=== PATIENT | male | born 1945 | race Caucasian/White ===

== ENCOUNTER → 2021-02-03 | Outpatient (CLI) | payer MEDICARE ==
--- NOTE | 2021-02-03 22:20 | CT ---
EXAMINATION TYPE: CT brain wo con DATE OF EXAM: 02/03/2021 HISTORY: memory loss, confusion. CT DLP: 1144.7 mGycm. Automated Exposure Control for Dose Reduction was Utilized. TECHNIQUE: CT scan of the head is performed without contrast. COMPARISON: 04/17/2016 FINDINGS: There is no acute intracranial hemorrhage, midline shift, or mass effect identified. Ventricles and s ulci are prominent concordant with generalized volume loss. There is redemonstrated patchy white george er hypodensities likely sequela of chronic microvascular ischemic change. No extra-axial fluid collec tion. No depressed calvarial fracture. Visualized sinuses and mastoid air cells are clear. IMPRESSION: 1. No acute intracranial hemorrhage, midline shift, or mass effect. 2. Generalized volume loss. Patchy white matter hypodensities likely sequela of chronic microvascular ischemic change.
== END | disposition home or self-care (01) ==
LOC: RADCTMAIN 18:36
PROVIDERS: ATTEND Family Medicine
DX: R41.3 Other amnesia (principal)
CPT/HCPCS: 70450

== ENCOUNTER → 2021-04-18 | Outpatient (CLI) | payer MEDICARE ==
[2021-04-18 14:54] LABS: HCT 46.3 % (39.6-50.0); HGB 14.3 g/dL (13.0-17.0); MCH 29.7 pg (27.0-32.0); MCHC 30.9 g/dL (32.0-37.0); MCV 96.1 fL (80.0-97.0); Mean Platelet Volume 9.5 fL (9.5-12.2); Platelet Count 305 X 10*3/uL (140-440); RBC 4.82 X 10*6/uL (4.40-5.60); RDW 13.3 % (11.5-14.5); WBC 9.02 X 10*3/uL (4.50-10.00)
[2021-04-18 17:55] LABS: African American GFR (CKD) 67.7 (60.0-200.0); Albumin 3.8 g/dL (3.8-4.9); Albumin/Globulin Ratio 1.27 (1.60-3.17); Anion Gap 16.4 mmol/L (10.00-18.00); BUN/Creat Ratio 13.67 Ratio (12.00-20.00); Blood Urea Nitrogen 16.4 mg/dL (9.0-27.0); Carbon Dioxide 24.6 mmol/L (20.0-27.5); Non-African American GFR(CKD) 58.4 (60.0-200.0); Potassium 4.6 mmol/L (3.5-5.5); Total Bilirubin 0.4 mg/dL (0.30-1.20); Total Protein 6.8 g/dL (6.2-8.2)
[2021-04-18 17:56] LABS: % Iron Saturation 21.13 (15.00-50.00); T4, Free (Free Thyroxine) 1.32 ng/dL (0.800-1.800)
== END | disposition home or self-care (01) ==
LOC: LABWHC1 08:13
PROVIDERS: ATTEND Psychiatry & Neurology Pain Medicine
DX: R53.83 Other fatigue (principal)
CPT/HCPCS: 36415; 80053; 82550; 82607; 82728; 83036; 83540; 83550; 84207; 84439; 84443; 84466; 84481; 85027

== ENCOUNTER → 2021-11-24 | Outpatient (CLI) | payer MEDICARE ==
[2021-11-24 15:00] LABS: T4, Free (Free Thyroxine) 1.19 ng/dL (0.800-1.800)
[2021-11-24 15:09] LABS: Thyroid Peroxidase Antibodies <9.0 U/mL (0.0-33.0)
== END | disposition home or self-care (01) ==
LOC: LABWHC1 08:25
PROVIDERS: ATTEND Internal Medicine Endocrinology, Diabetes & Metabolism
DX: E03.8 Other specified hypothyroidism (principal)
CPT/HCPCS: 36415; 84439; 84443; 84480; 86376

== ENCOUNTER → 2022-02-06 | Outpatient (CLI) | payer MEDICARE | END | disposition home or self-care (01) | LOC: LABWHC1 08:41 | PROVIDERS: ATTEND Internal Medicine Endocrinology, Diabetes & Metabolism | DX: E03.8 Other specified hypothyroidism (principal) | CPT/HCPCS: 36415; 84443 ==

== ENCOUNTER 2022-03-16 20:03 | Inpatient (IN) | payer MEDICARE ==
[2022-03-16 20:08] LABS: Glucose,Whole Blood 244 mg/dL (70-110)
[2022-03-16] MEDS ORDERED: SODIUM CHLORIDE 0.9% 500 ML 500 ML IV STA (20:19)
[2022-03-16 20:30] LABS: Basophils # (A) 0.1 k/uL (0-0.2); Basophils % (A) 1 %; Eosinophils # (A) 0.1 k/uL (0-0.7); Eosinophils % (A) 2 %; HCT 41.2 % (39.0-53.0); HGB 13.6 gm/dL (13.0-17.5); Lymphocytes # (A) 0.3 k/uL (1.0-4.8); Lymphocytes % (A) 4 %; MCH 29.4 pg (25.0-35.0); MCV 89.1 fL (80.0-100.0); Mean Platelet Volume 7.4; Monocytes # (A) 0.4 k/uL (0-1.0); Monocytes % (A) 5 %; Neutrophils # (A) 7.1 k/uL (1.3-7.7); Neutrophils % (A) 88 %; Platelet Count 236 k/uL (150-450); RBC 4.62 m/uL (4.30-5.90); RDW 13.5 % (11.5-15.5); WBC 8.1 k/uL (3.8-10.6)
[2022-03-16 20:48] LABS: Partial Thromboplastin Time 24.3 sec (22.0-30.0); Prothrombin Time 10.4 sec (9.0-12.0)
[2022-03-16 20:58] LABS: Albumin 3.2 g/dL (3.5-5.0); Calcium 7.6 mg/dL (8.4-10.2); Magnesium 1.7 mg/dL (1.6-2.3); Potassium 3.2 mmol/L (3.5-5.1); Total Bilirubin 0.6 mg/dL (0.2-1.3); Total Protein 5.9 g/dL (6.3-8.2)
[2022-03-16] MEDS: SODIUM CHLORIDE 0.9% 1,000 ML IV SCH (22:04)
--- NOTE | 2022-03-16 22:05 | ED ---
General Adult HPI - General Chief complaint: Fall Stated complaint: Weakness, fall Time Seen by Provider: 03/16/22 20:13 Source: patient, family, EMS, RN notes reviewed, old records reviewed Mode of arrival: EMS Limitations: altered mental status - History of Present Illness Initial comments: 76-year-old male presenting for evaluation of generalized weakness, difficulty ambulating. Patient has had 3 episodes today where he was unable to stand and had minor falls. No injury reported. No head trauma. The patient has no complaints. No abdominal pain he has had some nausea and vomiting. No chest pain. No focal numbness or weakness. History of dementia. History is obtainable from the patient and the patient's . - Related Data Home Medications Medication Instructions Recorded Confirmed Clopidogrel [Plavix] 75 mg PO DAILY 04/17/16 03/16/22 Ezetimibe/Simvastatin [Vytorin 1 tab PO HS 04/17/16 03/16/22 10-40 mg Tablet] Isosorbide Mononitrate ER [Imdur] 30 mg PO DAILY 04/17/16 03/16/22 Metoprolol Tartrate [Lopressor] 25 mg PO DAILY 04/17/16 03/16/22 Quinapril HCl [Accupril] 5 mg PO DAILY 04/17/16 03/16/22 Sertraline [Zoloft] 50 mg PO DAILY 04/17/16 03/16/22 Levothyroxine Sodium [Synthroid] 25 mcg PO DAILY 03/16/22 03/16/22 Memantine [Namenda] 5 mg PO BID 03/16/22 03/16/22 Allergies Allergy/AdvReac Type Severity Reaction Status Date / Time Penicillins AdvReac Nausea & Verified 03/16/22 21:46 Vomiting Review of Systems ROS Statement: Those systems with pertinent positive or pertinent negative responses have been documented in the HPI. ROS Other: All systems not noted in ROS Statement are negative. Past Medical History Past Medical History: Coronary Artery Disease (CAD), Hyperlipidemia, Myocardial Infarction ([place]) History of Any Multi-Drug Resistant Organisms: None Reported Past Surgical History: Heart Catheterization With Stent Past Psychological History: No Psychological Hx Reported Smoking Status: Never smoker Past Alcohol Use History: None Reported Past Drug Use History: None Reported General Exam Limitations: altered mental status General appearance: alert, in no apparent distress Head exam: Present: atraumatic, normocephalic Eye exam: Present: normal appearance, PERRL ENT exam: Present: mucous membranes dry Neck exam: Present: normal inspection. Absent: tenderness, meningismus Respiratory exam: Present: normal lung sounds bilaterally. Absent: respiratory distress, wheezes Cardiovascular Exam: Present: regular rate, normal rhythm GI/Abdominal exam: Present: soft. Absent: distended, tenderness, guarding, rebound Extremities exam: Present: normal inspection, normal capillary refill. Absent: pedal edema Neurological exam: Present: alert. Absent: motor sensory deficit Skin exam: Present: warm, dry, intact. Absent: cyanosis, diaphoretic Course Vital Signs 03/16/22 03/16/22 03/16/22 20:09 20:14 22:04 Temperature 100.4 F H 100 F H 100.1 F H Pulse Rate 100 96 86 Respiratory 16 16 16 Rate Blood Pressure 151/85 151/85 161/97 O2 Sat by Pulse 94 L 95 98 Oximetry EKG Findings - EKG Comments: EKG Findings:: EKG: Sinus tachycardia, right bundle branch block, rate of 105, HI interval 166, QRS duration 136, QTC [address] segment elevation Medical Decision Making - Medical Decision Making 76-year-old male who presents for evaluation of increased generalized weakness, multiple falls. Patient did not injure himself with any of the falls. No head trauma. Patient does have dementia but does not have any complaint. I obtained further history from the who states that she is concerned because they had to call for lift assist because the patient is too heavy for his to help lift up from the ground. There was a fever on presentation. Chest x-ray does show some increasing atelectasis, this may be developing pneumonia, antibiotics have been initiated as well as IV fluid. Patient has a mild hypokalemia at 3.2 which is replaced. Urinalysis pending. Laboratory testing otherwise unremarkable. He will be admitted for IV fluids, IV antibiotics and reevaluation - Lab Data Result diagrams: 03/16/22 20:03/16/22 20:23 Lab Results 03/16/22 03/16/22 03/16/22 Range/Units 20:07 20:23 20:23 WBC 8.1 (3.8-10.6) k/uL RBC 4.62 (4.30-5.90) m/uL Hgb 13.6 (13.0-17.5) gm/dL Hct 41.2 (39.0-53.0) % MCV 89.1 (80.0-100.0) fL MCH 29.4 (25.0-35.0) pg MCHC 33.0 (31.0-37.0) g/dL RDW 13.5 (11.5-15.5) % Plt Count 236 (150-450) k/uL MPV 7.4 Neutrophils % 88 % Lymphocytes % 4 % Monocytes % 5 % Eosinophils % 2 % Basophils % 1 % Neutrophils # 7.1 (1.3-7.7) k/uL Lymphocytes # 0.3 L (1.0-4.8) k/uL Monocytes # 0.4 (0-1.0) k/uL Eosinophils # 0.1 (0-0.7) k/uL Basophils # 0.1 (0-0.2) k/uL PT 10.4 (9.0-12.0) sec INR 1.0 (<1.2) APTT 24.3 (22.0-30.0) sec Sodium (137-145) mmol/L Potassium (3.5-5.1) mmol/L Chloride (98-107) mmol/L Carbon Dioxide (22-30) mmol/L Anion Gap mmol/L BUN (9-20) mg/dL Creatinine (0.66-1.25) mg/dL Est GFR (CKD-EPI)AfAm (>60 ml/min/1.73 sqM) Est GFR (CKD-EPI)NonAf (>60 ml/min/1.73 sqM) Glucose (74-99) mg/dL POC Glucose (mg/dL) 244 H (70-110) mg/dL POC Glu P[employer]der ID Nurys Justin Plasma Lactic Acid Eddie (0.7-2.0) mmol/L Calcium (8.4-10.2) mg/dL Magnesium (1.6-2.3) mg/dL Total Bilirubin (0.2-1.3) mg/dL AST (17-59) U/L ALT (4-49) U/L Alkaline Phosphatase (38-126) U/L Total Protein (6.3-8.2) g/dL Albumin (3.5-5.0) g/dL Coronavirus (PCR) (Not Detectd) 03/16/22 03/16/22 03/16/22 Range/Units 20:23 20:23 20:23 WBC (3.8-10.6) k/uL RBC (4.30-5.90) m/uL Hgb (13.0-17.5) gm/dL Hct (39.0-53.0) % MCV (80.0-100.0) fL MCH (25.0-35.0) pg MCHC (31.0-37.0) g/dL RDW (11.5-15.5) % Plt Count (150-450) k/uL MPV Neutrophils % % Lymphocytes % % Monocytes % % Eosinophils % % Basophils % % Neutrophils # (1.3-7.7) k/uL Lymphocytes # (1.0-4.8) k/uL Monocytes # (0-1.0) k/uL Eosinophils # (0-0.7) k/uL Basophils # (0-0.2) k/uL PT (9.0-12.0) sec INR (<1.2) APTT (22.0-30.0) sec Sodium 138 (137-145) mmol/L Potassium 3.2 L (3.5-5.1) mmol/L Chloride 105 (98-107) mmol/L Carbon Dioxide 22 (22-30) mmol/L Anion Gap 11 mmol/L BUN 17 (9-20) mg/dL Creatinine 1.01 (0.66-1.25) mg/dL Est GFR (CKD-EPI)AfAm 83 (>60 ml/min/1.73 sqM) Est GFR (CKD-EPI)NonAf 72 (>60 ml/min/1.73 sqM) Glucose 114 H (74-99) mg/dL POC Glucose (mg/dL) (70-110) mg/dL POC Glu Pipeline Welder ID Plasma Lactic Acid Eddie 1.3 (0.7-2.0) mmol/L Calcium 7.6 L (8.4-10.2) mg/dL Magnesium 1.7 (1.6-2.3) mg/dL Total Bilirubin 0.6 (0.2-1.3) mg/dL AST 23 (17-59) U/L ALT 14 (4-49) U/L Alkaline Phosphatase 81 (38-126) U/L Total Protein 5.9 L (6.3-8.2) g/dL Albumin 3.2 L (3.5-5.0) g/dL Coronavirus (PCR) Not Detected (Not Detectd) Disposition Clinical Impression: Weakness, Pneumonia, Hypokalemia Disposition: ADMITTED IP TO THIS [facility] Condition: Stable Is patient prescribed a controlled substance at d/c from ED?: No Referrals: Marlon Umana DO [Primary Care Provider] - 1-2 days Time of Disposition: 22:26
--- NOTE | 2022-03-16 22:12 | XR ---
EXAMINATION TYPE: XR chest 1V DATE OF EXAM: 03/16/2022 COMPARISON: 04/17/2016 HISTORY: Weakness TECHNIQUE: Single view FINDINGS: Heart size is normal. There is mild elevation of the right diaphragm. No heart failure. No pulmonary consolidation. There is some minimal linear density right lung base. IMPRESSION: Mild subsegmental atelectasis right lung base which is likely increased compared to old e xam. No heart failure.
[2022-03-16] MEDS: POTASSIUM CHLORIDE 10 MEQ in WATER FOR INJECTION 1 100ML.BAG IVPB SCH (22:13)
[2022-03-16] MEDS ORDERED: AZITHROMYCIN 500 MG in SODIUM CHLORIDE 0.9% 250 ML IVPB STA (22:16)
[2022-03-16] MEDS ORDERED: cefTRIAXone IN SWFI 1,000 MG/10 ML SYRINGE IVP STA (22:16)
[2022-03-16] MEDS ORDERED: ACETAMINOPHEN TAB 325 MG TAB PO PRN (22:21)
[2022-03-16] MEDS ORDERED: NALOXONE 0.4 MG/ML 1 ML VIAL IV PRN (22:21)
[2022-03-16 23:07] LABS: Appearance,Urine Clear (Clear); Bilirubin,Urine Negative (Negative); Blood,Urine Moderate (Negative); Color,Urine Yellow; Glucose,Urine (UA) Negative (Negative); Ketones,Urine Trace (Negative); Leukocyte Esterase,Urine Negative (Negative); Mucus,Urine Rare /hpf; Nitrite,Urine Negative (Negative); PH, Urine 6.5 (5.0-8.0); Protein,Urine Negative (Negative); RBC,Urine 18 /hpf (0-5); Specific Gravity,Urine 1.013 (1.001-1.035); WBC,Urine <1 /hpf (0-5)
[2022-03-17] MEDS: POTASSIUM CHLORIDE 10 MEQ in WATER FOR INJECTION 1 100ML.BAG IVPB SCH ×3 (03:34→13:22)
[2022-03-17] MEDS: LEVOTHYROXINE 25 MCG TAB PO SCH (06:28)
[2022-03-17] MEDS: METOPROLOL TARTRATE 25 MG TAB PO SCH (09:44)
[2022-03-17] MEDS: MEMANTINE 5 MG TAB PO SCH ×2 (09:44→22:27)
[2022-03-17] MEDS: SERTRALINE 50 MG TAB PO SCH (09:44)
[2022-03-17] MEDS: CLOPIDOGREL 75 MG TAB PO SCH (09:44)
[2022-03-17] MEDS: lisinopriL 5 MG TAB PO SCH (09:44)
[2022-03-17] MEDS: ISOSORBIDE MONONITRATE ER 30 MG TAB.ER.24H PO SCH (09:44)
--- NOTE | 2022-03-17 12:50 | P.HPIM ---
History of Present Illness This is a pleasant 76 years old male with multiple medical problems as below presents with dyspnea. Patient has history of dementia however he can't provide information with the help of his at bedside Patient recently was diagnosed with a mass on his right ear pain is about 1 cm nodule was hemorrhagic and dry cab With no signs of cellulitis. He is supposed to have surgery removed with Dr. Asencio on March 29. Preop evaluation with ldr rn he underwent stress test recently. However noticed that whenever patient walks he got more puffy and tachypneic, although at baseline he spent most of his time watching TV sitting do not think because of his history of Alzheimer dementia however twice when he was coming from the bathroom he fell into the bed without losing consciousness However yesterday he fell on the ground and the could not get him up so A, and cold ambulance for him Patient denies chest pain or coughing but he noticed to be slightly tachypneic when talking. Also noticed some more unusual exertional dyspnea He denies diarrhea or dysuria or urgency. No rash. No headache or weakness or numbness. Essential signs are absent. No smoking alcohol or illicit drugs Patient has a fever of 100.4 on admission Is unremarkable CBC, INR, BMP and liver enzymes. Urinalysis showing moderate blood. RBC 18. Urine analysis: On suspicious of infection Coronavirus not detected. EKG showing sinus tachycardia and 105 Chest x-ray: Mild subsegmental atelectasis right lung base which is slightly increased compared to old exam. No heart failure (per radiologist ). No pulmonary consolidation In the emergency room patient received IV fluid and ceftriaxone Review of Systems Review of systems CONSTITUTIONAL: No fever, no malaise, no fatigue. HEENT: No recent visual problems or hearing problems. Denied any sore throat. CARDIOVASCULAR: No orthopnea, PND, no palpitations, no syncope. PULMONARY: No shortness of breath, no cough, no hemoptysis. GASTROINTESTINAL: No diarrhea, no nausea, no vomiting, no abdominal pain. Normoactive bowel sounds. NEUROLOGICAL: No headaches, no weakness, no numbness. HEMATOLOGICAL: Denies any bleeding or petechiae. GENITOURINARY: Denies any burning micturition, frequency, or urgency. MUSCULOSKELETAL/RHEUMATOLOGICAL: Denies any joint pain, swelling, or any muscle pain. ENDOCRINE: Denies any polyuria or polydipsia. 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, [facility] Last Myocardial Infarction Date:: 10/1999 History of Any Multi-Drug Resistant Organisms: None Reported Past Surgical History: Heart Catheterization With Stent Additional Past Surgical History / Comment(s): 3 stents placed in 10/1999 Past Anesthesia/Blood Transfusion Reactions: No Reported Reaction Date of Last Stent Placement:: 10/1999 Past Psychological History: Depression Smoking Status: Never smoker Past Alcohol Use History: None Reported Past Drug Use History: None Reported Medications and Allergies Home Medications Medication Instructions Recorded Confirmed Type Clopidogrel [Plavix] 75 mg PO DAILY 04/17/16 03/16/22 History Ezetimibe/Simvastatin [Vytorin 1 tab PO HS 04/17/16 03/16/22 History 10-40 mg Tablet] Isosorbide Mononitrate ER [Imdur] 30 mg PO DAILY 04/17/16 03/16/22 History Metoprolol Tartrate [Lopressor] 25 mg PO DAILY 04/17/16 03/16/22 History Quinapril HCl [Accupril] 5 mg PO DAILY 04/17/16 03/16/22 History Sertraline [Zoloft] 50 mg PO DAILY 04/17/16 03/16/22 History Levothyroxine Sodium [Synthroid] 25 mcg PO DAILY 03/16/22 03/16/22 History Memantine [Namenda] 5 mg PO BID 03/16/22 03/16/22 History Allergies Allergy/AdvReac Type Severity Reaction Status Date / Time Penicillins AdvReac Nausea & Verified 03/16/22 21:46 Vomiting Physical Exam Vitals: Vital Signs Temp Pulse Pulse Resp BP BP Pulse Ox 03/17/22 08:00 98.0 F 84 18 189/95 94 L 03/17/22 01:21 98.4 F 98 20 131/82 93 L 03/17/22 00:08 100.1 F H 72 16 123/74 98 03/16/22 23:50 123/74 03/16/22 22:55 72 16 131/74 96 03/16/22 22:04 100.1 F H 86 16 161/97 98 03/16/22 20:14 100 F H 96 16 151/85 95 03/16/22 20:09 100.4 F H 100 16 151/85 94 L Intake and Output 03/16/22 03/17/22 03/17/22 22:59 06:59 14:59 Output Total 600 Balance -600 Output: Urine 600 Other: # Voids 1 1 # Bowel Movements 1 Weight 97.522 kg 84.368 kg GENERAL: The patient is alert and oriented x3, not in any acute distress. Well developed, well nourished. HEENT: Pupils are round and equally reacting to light. EOMI. No scleral icterus. No conjunctival pallor. Normocephalic, atraumatic. No pharyngeal erythema. No thyromegaly. CARDIOVASCULAR: S1 and S2 present. No murmurs, rubs, or gallops. -PULMONARY: Chest is clear to auscultation, no wheezing or crackles. THE kidney ABDOMEN: Soft, nontender, nondistended, normoactive bowel sounds. No palpable organomegaly. MUSCULOSKELETAL: No joint swelling or deformity. EXTREMITIES: No cyanosis, clubbing, or pedal edema. NEUROLOGICAL: Gross neurological examination did not reveal any focal deficits. SKIN: No rashes. no petechiae. Results CBC & Chem 7: 03/16/22 20:23 03/16/22 20:23 Labs: Abnormal Lab Results - Last 24 Hours (Table) 03/16/22 03/16/22 03/16/22 Range/Units 20:07 20:23 20:23 Lymphocytes # 0.3 L (1.0-4.8) k/uL Potassium 3.2 L (3.5-5.1) mmol/L Glucose 114 H (74-99) mg/dL POC Glucose (mg/dL) 244 H (70-110) mg/dL Calcium 7.6 L (8.4-10.2) mg/dL Total Protein 5.9 L (6.3-8.2) g/dL Albumin 3.2 L (3.5-5.0) g/dL Urine Ketones (Negative) Urine Blood (Negative) Urine RBC (0-5) /hpf Urine Mucus (None) /hpf 03/16/22 Range/Units 22:50 Lymphocytes # (1.0-4.8) k/uL Potassium (3.5-5.1) mmol/L Glucose (74-99) mg/dL POC Glucose (mg/dL) (70-110) mg/dL Calcium (8.4-10.2) mg/dL Total Protein (6.3-8.2) g/dL Albumin (3.5-5.0) g/dL Urine Ketones Trace H (Negative) Urine Blood Moderate H (Negative) Urine RBC 18 H (0-5) /hpf Urine Mucus Rare H (None) /hpf Thrombosis Risk Factor Assmnt - Choose All That Apply Any of the Below Risk Factors Present?: Yes Each Factor Represents 1 point: Obesity (BMI >25) Other Risk Factors: Yes Each Risk Factor Represents 3 Points: Age 75 years or older Other congenital or acquired thrombophilia - If yes, enter type in comment: No Thrombosis Risk Factor Assessment Total Risk Factor Score: 4 Thrombosis Risk Factor Assessment Level: Moderate Risk Assessment and Plan Assessment: Recurrent falls at home fever of unknown origin . Right lower lobe pneumonia. Hypothyroidism Hypertension Hyperlipidemia History of depression, not an active issue Alzheimer Dementia Plan: This is a pleasant 76 years old male who presents with pneumonia Continue with antibiotic. Start Zosyn Continue to bronchodilator and oxygen as needed Check a discussed toning Speech therapy consult for swallow evaluation Labs and medication were reviewed.. Continue same treatment. Continue with symptomatic treatment. Resume home medication. Monitor lytes and vitals. DVT and GI prophylaxis. Further recommendations as per clinical course of the patient DVT prophylaxis: Subcutaneous heparin GI Prophylaxis: Pepcid PT/OT: Pending Prognosis is guarded
[2022-03-17 14:29] LABS: Appearance,Urine Clear (Clear); Bilirubin,Urine Negative (Negative); Blood,Urine Moderate (Negative); Color,Urine Yellow; Glucose,Urine (UA) Negative (Negative); Ketones,Urine Negative (Negative); Leukocyte Esterase,Urine Negative (Negative); Mucus,Urine Rare /hpf; Nitrite,Urine Negative (Negative); PH, Urine 6.5 (5.0-8.0); Protein,Urine Trace (Negative); RBC,Urine 16 /hpf (0-5); Specific Gravity,Urine 1.013 (1.001-1.035); Squamous Epithelial Cell,Urine <1 /hpf (0-4); Urobilinogen,Urine <2.0 mg/dL (<2.0); WBC,Urine 1 /hpf (0-5)
[2022-03-17] MEDS: SODIUM CHLORIDE 0.9% 1,000 ML IV SCH (16:05)
[2022-03-17] MEDS: PIPERACILLIN-TAZOBACTAM 3.375 GM in SODIUM CHLORIDE 0.9% 100 ML IVPB SCH (16:05)
[2022-03-17] MEDS ORDERED: amLODIPine 5 MG TAB PO STA (22:10)
[2022-03-17] MEDS: FAMOTIDINE 20 MG/2 ML VIAL IV SCH (22:27)
[2022-03-17] MEDS: EZETIMIBE 10 MG TAB PO SCH (22:27)
[2022-03-17] MEDS: ATORVASTATIN 10 MG TAB PO SCH (22:27)
[2022-03-17] MEDS: HEPARIN SODIUM,PORCINE/PF 5,000 UNIT/0.5 ML SYRINGE SQ SCH (22:27)
[2022-03-17 22:37] LABS: African American GFR (CKD) 55 (>60 ml/min/1.73 sqM); Anion Gap 7 mmol/L; Blood Urea Nitrogen 18 mg/dL (9-20); Calcium 7.7 mg/dL (8.4-10.2); Carbon Dioxide 29 mmol/L (22-30); Chloride 104 mmol/L (98-107); Glucose 107 mg/dL (74-99); Non-African American GFR(CKD) 48 (>60 ml/min/1.73 sqM); Potassium 3.7 mmol/L (3.5-5.1); Sodium 140 mmol/L (137-145)
[2022-03-18] MEDS: PIPERACILLIN-TAZOBACTAM 3.375 GM in SODIUM CHLORIDE 0.9% 100 ML IVPB SCH ×3 (01:06→17:03)
[2022-03-18] MEDS ORDERED: hydrALAZINE HCL 25 MG TAB PO PRN (02:36)
[2022-03-18] MEDS ORDERED: hydrALAZINE HCL 25 MG TAB PO STA (02:36)
[2022-03-18] MEDS: LEVOTHYROXINE 25 MCG TAB PO SCH (05:46)
--- NOTE | 2022-03-18 09:11 | XR ---
EXAMINATION TYPE: XR knee limited RT DATE OF EXAM: 03/18/2022 CLINICAL HISTORY: Fall injury with pain and redness TECHNIQUE: Frontal and lateral views of the right knee are obtained. COMPARISON: None. FINDINGS: There is no acute fracture/dislocation evident in right knee. Mild to moderate tricompartm ent joint space loss. No significant spurring. Mild posterior arterial vascular calcification becomi ng more prominent distally past the knee joint. No significant joint effusion. IMPRESSION: There is no acute fracture or dislocation in the right knee.
--- NOTE | 2022-03-18 09:13 | CT ---
EXAMINATION TYPE: CT brain wo con DATE OF EXAM: 03/18/2022 HISTORY: Fall injury with headache. CT DLP: 1129.6 mGycm. Automated Exposure Control for Dose Reduction was Utilized. TECHNIQUE: CT scan of the head is performed without contrast. COMPARISON: CT brain February 03, 2021 and older study 2015. FINDINGS: There is no acute intracranial hemorrhage or midline shift identified. There is persisten t moderate diffuse ventricular and sulcal prominence consistent with diffuse age-related cerebral atr ophy. There is moderate low-attenuation in the deep and periventricular white matter consistent with chronic small vessel ischemic change. Cavum septum pellucidum redemonstrated. The globes are intact and the visualized sinuses are clear. Moderate calcified peripheral plaque bilateral distal internal carotid arteries is redemonstrated. IMPRESSION: No acute intracranial hemorrhage or midline shift. There is moderate diffuse cerebral a trophy and chronic small vessel ischemic change redemonstrated. No significant change from most recen t CT
[2022-03-18] MEDS: FAMOTIDINE 20 MG/2 ML VIAL IV SCH ×2 (09:34→22:04)
[2022-03-18] MEDS: HEPARIN SODIUM,PORCINE/PF 5,000 UNIT/0.5 ML SYRINGE SQ SCH ×2 (09:56→22:04)
[2022-03-18] MEDS: METOPROLOL TARTRATE 25 MG TAB PO SCH (09:56)
[2022-03-18] MEDS: ISOSORBIDE MONONITRATE ER 30 MG TAB.ER.24H PO SCH (09:56)
[2022-03-18] MEDS: MEMANTINE 5 MG TAB PO SCH ×2 (09:56→22:05)
[2022-03-18] MEDS: CLOPIDOGREL 75 MG TAB PO SCH (09:56)
[2022-03-18] MEDS: lisinopriL 5 MG TAB PO SCH (09:56)
[2022-03-18] MEDS: SERTRALINE 50 MG TAB PO SCH (09:56)
[2022-03-18 11:26] LABS: Basophils # (A) 0.05 X 10*3/uL (0.00-0.10); Basophils % (A) 0.9 %; Eosinophils # (A) 0.01 X 10*3/uL (0.04-0.35); Eosinophils % (A) 0.2 %; HCT 43.1 % (39.6-50.0); HGB 13.4 g/dL (13.0-17.0); Immature Grans, Automated 0.2 %; Lymphocytes # (A) 0.63 X 10*3/uL (0.90-5.00); Lymphocytes % (A) 11.4 %; MCH 28.7 pg (27.0-32.0); MCHC 31.1 g/dL (32.0-37.0); MCV 92.3 fL (80.0-97.0); Mean Platelet Volume 9.5 fL (9.5-12.2); Monocytes # (A) 0.63 X 10*3/uL (0.20-1.00); Monocytes % (A) 11.4 %; NRBC Per 100 WBC 0 /100 WBCS (0.0-0.0); Neutrophils # (A) 4.21 X 10*3/uL (1.80-7.70); Neutrophils % (A) 75.9 %; Platelet Count 206 X 10*3/uL (140-440); RBC 4.67 X 10*6/uL (4.40-5.60); RDW 13.6 % (11.5-14.5); WBC 5.54 X 10*3/uL (4.50-10.00)
[2022-03-18 11:57] LABS: African American GFR (CKD) 65.2 (60.0-200.0); Anion Gap 10.8 mmol/L (10.00-18.00); BUN/Creat Ratio 13.33 Ratio (12.00-20.00); Blood Urea Nitrogen 16.4 mg/dL (9.0-27.0); Calcium 8.1 mg/dL (8.7-10.3); Carbon Dioxide 25.7 mmol/L (20.0-27.5); Magnesium 1.9 mg/dL (1.5-2.4); Non-African American GFR(CKD) 56.3 (60.0-200.0); Potassium 3.6 mmol/L (3.5-5.5)
--- NOTE | 2022-03-18 20:03 | XR ---
EXAMINATION TYPE: XR chest 1V portable DATE OF EXAM: 03/18/2022 COMPARISON: 03/16/2022 HISTORY: Pneumonia. TECHNIQUE: Mobile view FINDINGS: Failure nor confluent pneumonic infiltrate. Costophrenic angles are clear. Thoracic aorta i s atheromatous. There is mild elevation of the right diaphragm. IMPRESSION: No active cardiopulmonary disease. No adverse change. Mild chronic elevation of the right diaphragm.
[2022-03-18] MEDS ORDERED: VANCOMYCIN IV PER PHARMACY 1 EACH MISC MISCELLANE PRN (20:12)
[2022-03-18] MEDS ORDERED: VANCOMYCIN 1,500 MG in SODIUM CHLORIDE 0.9% 500 ML 500 ML IVPB SCH (22:00)
[2022-03-18] MEDS: EZETIMIBE 10 MG TAB PO SCH (22:05)
[2022-03-18] MEDS: ATORVASTATIN 10 MG TAB PO SCH (22:05)
[2022-03-18] MEDS: SODIUM CHLORIDE 0.9% 1,000 ML IV SCH (22:05)
--- NOTE | 2022-03-18 22:56 | P.PN ---
Subjective This is a pleasant 76 years old male with multiple medical problems as below presents with dyspnea. Patient has history of dementia however he can't provide information with the help of his at bedside Patient recently was diagnosed with a mass on his right ear pain is about 1 cm nodule was hemorrhagic and dry cab With no signs of cellulitis. He is supposed to have surgery removed with Dr. Asencio on March 29. Preop evaluation with gas and oil checker he underwent stress test recently. However noticed that whenever patient walks he got more puffy and tachypneic, although at baseline he spent most of his time watching TV sitting do not think because of his history of Alzheimer dementia however twice when he was coming from the bathroom he fell into the bed without losing consciousness However yesterday he fell on the ground and the could not get him up so A, and cold ambulance for him Patient denies chest pain or coughing but he noticed to be slightly tachypneic when talking. Also noticed some more unusual exertional dyspnea He denies diarrhea or dysuria or urgency. No rash. No headache or weakness or numbness. Essential signs are absent. No smoking alcohol or illicit drugs Patient has a fever of 100.4 on admission Is unremarkable CBC, INR, BMP and liver enzymes. Urinalysis showing moderate blood. RBC 18. Urine analysis: On suspicious of infection Coronavirus not detected. EKG showing sinus tachycardia and 105 Chest x-ray: Mild subsegmental atelectasis right lung base which is slightly increased compared to old exam. No heart failure (per radiologist ). No pulmonary consolidation In the emergency room patient received IV fluid and ceftriaxone 03/18/2022 Patient looks the same as when he came in yesterday, he can tell his name and he follows commands appropriately however he is poor historian. awake alert answers some questions but forgetful and somewhat confused which is felt at [facility] partly due to his Alzheimer dementia, but also could be secondary to infection or trauma. pt denies headache , no neck pain or stiffness This morning patient fell from the bed and hit his head therefore we did CT of the brain which was negative. Knee x-ray was negative because he hit his knee. We'll continue with the neuro check. He still has fever about 100. Patient was still has mild tachypnea. Aspiration pneumonia is suspected. Therefore we repeated the chest x-ray 2 views today which showed no acute process In the beginning patient pneumonia is suspected and he was started on Zosyn. Because repeated chest x-ray today shows no acute process. procalcitonin is not significantly elevated at 0.15. Patient still has fever. Therefore we repeated the blood culture.and we going to start the patient on empiric antibiotics with ceftriaxone, IV vancomycin and acyclovir to cover gram-negative, MRSA and viral infection, till he will be evaluated by infectious disease team we're going to consult infectious disease team. Ordered repeat culture and gentle hydration and close monitoring Discussed with the bedside nurse Objective - Vital Signs Vital signs: Vital Signs Temp 99.9 F H 03/18/22 14:00 Pulse 74 03/18/22 14:00 Resp 22 03/18/22 14:00 BP 116/72 03/18/22 14:00 Pulse Ox 92 L 03/18/22 14:00 FiO2 Intake & Output 03/18/22 03/18/22 03/19/22 06:59 18:59 06:59 Intake Total 350 Output Total 550 400 Balance -550 -50 Intake: Oral 350 Output: Urine 550 400 Other: Voiding Method Urinal Urinal # Bowel Movements 1 - Exam -GENERAL: The patient is alert and oriented, follows command, does not answer all questions appropriately, stairs not in space, in any acute distress. Overweight HEENT: Pupils are round and equally reacting to light. EOMI. No scleral icterus. No conjunctival pallor. Normocephalic, atraumatic. No pharyngeal erythema. No thyromegaly. CARDIOVASCULAR: S1 and S2 present. No murmurs, rubs, or gallops. -PULMONARY: Chest is clear to auscultation, no wheezing or crackles. Tachypneic ABDOMEN: Soft, nontender, nondistended, normoactive bowel sounds. No palpable organomegaly. MUSCULOSKELETAL: No joint swelling or deformity. EXTREMITIES: No cyanosis, clubbing, or pedal edema. NEUROLOGICAL: Gross neurological examination did not reveal any focal deficits. SKIN: No rashes. no petechiae. - Labs CBC & Chem 7: 03/18/22 07:29 03/18/22 07:29 Labs: Abnormal Lab Results - Last 24 Hours (Table) 03/17/22 03/18/22 03/18/22 Range/Units 22:05 07:29 07:29 MCHC 31.1 L (32.0-37.0) g/dL Lymphocytes # 0.63 L (0.90-5.00) X 10*3/uL Eosinophils # 0.01 L (0.04-0.35) X 10*3/uL Creatinine 1.41 H (0.66-1.25) mg/dL Est GFR (CKD-EPI)NonAf 56.3 L (60.0-200.0) Glucose 107 H (74-99) mg/dL Calcium 7.7 L 8.1 L (8.4-10.2) mg/dL Assessment and Plan Assessment: Recurrent falls at home Fever of unknown origin, could be bacterial versus viral Right lower lobe pneumonia versusis atelectasis is suspected with tachypnea hypoxia Hypothyroidism Hypertension Hyperlipidemia History of depression, not an active issue Alzheimer Dementia Plan: This is a pleasant 76 years old male who presents with fever, pneumonia is suspected on admission but repeat chest x-ray this evening looks normal. Discontinue Zosyn. Follow-up culture results Order blood culture We'll start broad-spectrum antibiotics of IV vancomycin, ceftriaxone and antiviral acyclovir. This medication can be downgraded later if fever subsided, short-term benefits more than risk Consult infectious disease team Continue to bronchodilator and oxygen as needed Speech therapy consult for swallow evaluation Start gentle hydration Close monitoring of creatinine Also considered non-infectious causes fever, we'll order ultrasound of the legs to rule out DVT Labs and medication were reviewed.. Continue same treatment. Continue with symptomatic treatment. Resume home medication. Monitor lytes and vitals. DVT and GI prophylaxis. Further recommendations as per clinical course of the patient DVT prophylaxis: Subcutaneous heparin GI Prophylaxis: Pepcid PT/OT: Pending Prognosis is guarded
[2022-03-19] MEDS: ACYCLOVIR SODIUM 500 MG in SODIUM CHLORIDE 0.9% 100 ML IVPB SCH ×2 (02:19→09:36)
[2022-03-19] MEDS: LEVOTHYROXINE 25 MCG TAB PO SCH (06:34)
[2022-03-19 07:51] LABS: African American GFR (CKD) 58 (>60 ml/min/1.73 sqM); Anion Gap 10 mmol/L; Blood Urea Nitrogen 22 mg/dL (9-20); Calcium 7.7 mg/dL (8.4-10.2); Carbon Dioxide 24 mmol/L (22-30); Chloride 105 mmol/L (98-107); Glucose 92 mg/dL (74-99); Non-African American GFR(CKD) 50 (>60 ml/min/1.73 sqM); Potassium 3.4 mmol/L (3.5-5.1); Sodium 139 mmol/L (137-145)
[2022-03-19] MEDS ORDERED: POTASSIUM CHLORIDE ER 20 MEQ TAB.ER PO STA ×2 (08:23→09:39)
--- NOTE | 2022-03-19 08:30 | US ---
EXAMINATION TYPE: US venous doppler duplex LE DATE OF EXAM: 03/19/2022 7:55 AM COMPARISON: NONE CLINICAL HISTORY: Pain, erythema. Exam done portable SIDE PERFORMED: Bilateral TECHNIQUE: The lower extremity deep venous system is examined utilizing real time linear array sonog fareed with graded compression, doppler sonography and color-flow sonography. VESSELS IMAGED: Common Femoral Vein Deep Femoral Vein Greater Saphenous Vein * Femoral Vein Popliteal Vein Small Saphenous Vein * Proximal Calf Veins (* superficial vessels) Grayscale, color doppler, spectral doppler imaging performed of the deep veins of the lower extremiti es. There is normal flow, compressibility, vascular waveforms. Right Leg: Appears negative for DVT Left Leg: Appears negative for DVT IMPRESSION: No evident deep venous thrombosis within the lower extremities from the level of the kne e centrally
[2022-03-19] MEDS: FAMOTIDINE 20 MG/2 ML VIAL IV SCH (08:37)
[2022-03-19] MEDS: HEPARIN SODIUM,PORCINE/PF 5,000 UNIT/0.5 ML SYRINGE SQ SCH ×2 (08:37→21:39)
[2022-03-19] MEDS: lisinopriL 5 MG TAB PO SCH (08:38)
[2022-03-19] MEDS: MEMANTINE 5 MG TAB PO SCH ×2 (08:38→21:39)
[2022-03-19] MEDS: SERTRALINE 50 MG TAB PO SCH (08:38)
[2022-03-19] MEDS: CLOPIDOGREL 75 MG TAB PO SCH (08:38)
[2022-03-19] MEDS: METOPROLOL TARTRATE 25 MG TAB PO SCH (08:38)
[2022-03-19] MEDS: ISOSORBIDE MONONITRATE ER 30 MG TAB.ER.24H PO SCH (08:38)
[2022-03-19 09:19] LABS: C Reactive Protein 3.4 mg/dL (<1.0)
[2022-03-19] MEDS: SODIUM CHLORIDE 0.9% 1,000 ML IV SCH (16:33)
[2022-03-19] MEDS: ALBUTEROL HFA INHALER INHALATION SCH (20:19)
[2022-03-19] MEDS ORDERED: ACYCLOVIR SODIUM 500 MG in SODIUM CHLORIDE 0.9% 100 ML IVPB SCH (21:00)
[2022-03-19] MEDS: ATORVASTATIN 10 MG TAB PO SCH (21:39)
[2022-03-19] MEDS: EZETIMIBE 10 MG TAB PO SCH (21:39)
--- NOTE | 2022-03-19 23:16 | P.PN ---
Subjective Progress Note Date: 03/19/22 This is a pleasant 76 years old male with multiple medical problems as below presents with dyspnea. Patient has history of dementia however he can't provide information with the help of his at bedside Patient recently was diagnosed with a mass on his right ear pain is about 1 cm nodule was hemorrhagic and dry cab With no signs of cellulitis. He is supposed to have surgery removed with Dr. Asencio on March 29. Preop evaluation with environmental compliance specialist he underwent stress test recently. However noticed that whenever patient walks he got more puffy and tachypneic, although at baseline he spent most of his time watching TV sitting do not think because of his history of Alzheimer dementia however twice when he was coming from the bathroom he fell into the bed without losing consciousness However yesterday he fell on the ground and the could not get him up so A, and cold ambulance for him Patient denies chest pain or coughing but he noticed to be slightly tachypneic when talking. Also noticed some more unusual exertional dyspnea He denies diarrhea or dysuria or urgency. No rash. No headache or weakness or numbness. Essential signs are absent. No smoking alcohol or illicit drugs Patient has a fever of 100.4 on admission Is unremarkable CBC, INR, BMP and liver enzymes. Urinalysis showing moderate blood. RBC 18. Urine analysis: On suspicious of infection Coronavirus not detected. EKG showing sinus tachycardia and 105 Chest x-ray: Mild subsegmental atelectasis right lung base which is slightly increased compared to old exam. No heart failure (per radiologist ). No pulmonary consolidation In the emergency room patient received IV fluid and ceftriaxone 03/18/2022 Patient looks the same as when he came in yesterday, he can tell his name and he follows commands appropriately however he is poor historian. awake alert answers some questions but forgetful and somewhat confused which is felt at least partly due to his Alzheimer dementia, but also could be secondary to infection or trauma. pt denies headache , no neck pain or stiffness This morning patient fell from the bed and hit his head therefore we did CT of the brain which was negative. Knee x-ray was negative because he hit his knee. We'll continue with the neuro check. He still has fever about 100. Patient was still has mild tachypnea. Aspiration pneumonia is suspected. Therefore we repeated the chest x-ray 2 views today which showed no acute process In the beginning patient pneumonia is suspected and he was started on Zosyn. Because repeated chest x-ray today shows no acute process. procalcitonin is not significantly elevated at 0.15. Patient still has fever. Therefore we repeated the blood culture.and we going to start the patient on empiric antibiotics with ceftriaxone, IV vancomycin and acyclovir to cover gram-negative, MRSA and viral infection, till he will be evaluated by infectious disease team we're going to consult infectious disease team. Ordered repeat culture and gentle hydration and close monitoring Discussed with the bedside nurse 03/19/2022 Patient evaluated today resting in bed. Currently on 2L nasal cannula oxygen support. Found to be positive for COVID infection. For this reason valcyclovir and vancomycin have been discontinued. He continues on IV ceftriaxone empirically. Creatinine today 1.35. Lisinopril is being held. He is being gently hydrated. Patient continues with low grade fever. Venous doppler negative for DVT. Overall the patient states he feels pretty good today. He will require sub acute rehab on discharge. Review of Systems Constitutional: Reports fatigue denied any fever. Cardio vascular: denied any chest pain, palpitations Gastrointestinal: denied any nausea, vomiting, diarrhea, Pulmonary: Denied any shortness of breath cough Neurologic denied any new focal deficits All inpatient medications were reviewed and appropriate changes in these medications as dictated in the interval history and assessment and plan. PHYSICAL EXAMINATION: GENERAL: The patient is alert and oriented x3, not in any acute distress. Well developed, well nourished. HEENT: Pupils are round and equally reacting to light. EOMI. No scleral icterus. No conjunctival pallor. Normocephalic, atraumatic. No pharyngeal erythema. No thyromegaly. CARDIOVASCULAR: S1 and S2 present. No murmurs, rubs, or gallops. PULMONARY: Chest is clear to auscultation, no wheezing or crackles. ABDOMEN: Soft, nontender, nondistended, normoactive bowel sounds. No palpable organomegaly. MUSCULOSKELETAL: No joint swelling or deformity. EXTREMITIES: No cyanosis, clubbing, or pedal edema. NEUROLOGICAL: Gross neurological examination did not reveal any focal deficits. SKIN: No rashes. Assessment and Plan Assessment Recurrent falls at home Acute Covid 19 infection Acute hypoxic respiratory failure secondary to above Right lower lobe pneumonia versusis atelectasis is suspected with tachypnea hypoxia Elevated inflammatory markers consistent with covid infection Hypothyroidism Hypertension Hyperlipidemia Coronary artery disease prior PCI in 1999 History of depression, not an active issue Alzheimer Dementia GI Prophylaxis DVT Prophylaxis Full Code Plan Infectious disease consultation Continue IV hydration Lisinopril on hold Repeat BMP in AM Continue vitamin support Continue all other supportive care Subacute rehab on discharge The impression and plan of care has been dictated by Keiko Leija Nurse Practitioner as directed. Dr. Mechelle MD I have performed a history and physical examination and medical decision making of this patient, discussed the same with the dictator, and agree with the dictators assessment and plan as written, documented as a scribe. Based on total visit time, I have performed more than 50% of this visit. Objective - Vital Signs Vital signs: Vital Signs Temp 98.4 F 03/19/22 14:00 Pulse 76 03/19/22 14:00 Resp 18 03/19/22 14:00 BP 120/64 03/19/22 14:00 Pulse Ox 96 03/19/22 14:00 FiO2 Intake & Output 03/18/22 03/19/22 03/19/22 18:59 06:59 18:59 Intake Total 350 Output Total 400 650 Balance -50 -650 Intake: Oral 350 Output: Urine 400 650 Other: Voiding Method Urinal Urinal External Catheter # Bowel Movements 1 1 - Labs CBC & Chem 7: 03/18/22 07:29 03/19/22 07:03 Labs: Abnormal Lab Results - Last 24 Hours (Table) 03/19/22 03/19/22 03/19/22 Range/Units 03:00 07:03 07:03 Potassium 3.4 L (3.5-5.1) mmol/L BUN 22 H (9-20) mg/dL Creatinine 1.35 H (0.66-1.25) mg/dL Calcium 7.7 L (8.4-10.2) mg/dL Lactate Dehydrogenase 677 H (313-618) U/L C-Reactive Protein 3.4 H (<1.0) mg/dL SARS-CoV-2 (PCR) Detected A (Not Detectd) Assessment and Plan Time with Patient: Less than 30
[2022-03-20] MEDS: DEXAMETHASONE SOD PHOSPHATE 10 MG/ML 1 ML VIAL IV SCH ×2 (03:55→09:55)
[2022-03-20] MEDS: LEVOTHYROXINE 25 MCG TAB PO SCH (06:23)
--- NOTE | 2022-03-20 07:09 | P.CONS ---
History of Present Illness - Reason for Consult Consult date: 03/19/22 Fever Requesting physician: Michael E Jigna - Chief Complaint Fever and shortness of breath x few days - History of Present Illness Patient is a 76-year-old male presenting to the hospital 3 days ago on 03/16/2022 for evaluation of generalized weakness and difficulty ambulating apparently the patient had did have a 3 episodes a day of presentation the hospital the patient was unable to stand and did have minor falls no injury reported no head trauma or loss of consciousness no chest pain or shortness of breath occasional cough no abdominal pain no nausea no vomiting this was the history provided to the ER physician by the with the symptom the patient w as evaluated by the ER physician on arrival to the ER patient did have a low- grade fever 100.4 F last temperature after midnight this morning is 99.9 F patient did have a mild hypoxemia and is requiring 2 L nasal cannula patient did have a normal white count with lymphopenia did have elevated CRP procalcitonin 0.15 urine has been negative patient did have a initial negative COVID test on the however the patient COVID test came back positive this morning RSV and influenza is negative patient chest x-ray on admission mild subsegmental atelectasis right lung base which likely increased compared to the old exam however chest x-ray last evening was no active disease patient did have a nurs ing Doppler has been negative for DVT infectious disease was consulted last evening because of his fever patient is currently complaining of generalized weakness denies having any headache or URI symptoms no chest pain some shortness of breath minimal cough but no sputum production no abdominal pain no diarrhea no urinary symptoms Review of Systems Positive point has been mentioned in the HPI rest of the systems are negative Past Medical History Past Medical History: Coronary Artery Disease (CAD), Cancer, Hyperlipidemia, Hyp ertension, Memory Impairment, Myocardial Infarction ([place]), Pneumonia, Thyroid Disorder Additional Past Medical History / Comment(s): Skin cancer on Left ear, [facility] Last Myocardial Infarction Date:: 10/1999 History of Any Multi-Drug Resistant Organisms: None Reported Past Surgical History: Heart Catheterization With Stent Additional Past Surgical History / Comment(s): 3 stents placed in 10/1999 Past Anesthesia/Blood Transfusion Reactions: No Reported Reaction Date of Last Stent Placement:: 10/1999 Past Psychological History: Depression Smoking Status: Never smoker Past Alcohol Use History: None Reported Past Drug Use History: None Reported Medications and Allergies Home Medications Medication Instructions Recorded Confirmed Type Clopidogrel [Plavix] 75 mg PO DAILY 04/17/16 03/16/22 History Ezetimibe/Simvastatin [Vytorin 1 tab PO HS 04/17/16 03/16/22 History 10-40 mg Tablet] Isosorbide Mononitrate ER [Imdur] 30 mg PO DAILY 04/17/16 03/16/22 History Metoprolol Tartrate [Lopressor] 25 mg PO DAILY 04/17/16 03/16/22 History Quinapril HCl [Accupril] 5 mg PO DAILY 04/17/16 03/16/22 History Sertraline [Zoloft] 50 mg PO DAILY 04/17/16 03/16/22 History Levothyroxine Sodium [Synthroid] 25 mcg PO DAILY 03/16/22 03/16/22 History Memantine [Namenda] 5 mg PO BID 03/16/22 03/16/22 History Albuterol Inhaler [Ventolin Hfa 1 puff INHALATION RT-QID each 03/24/22 Rx Inhaler] Ascorbic Acid [Vitamin C] 500 mg PO DAILY tab 03/24/22 Rx Cholecalciferol [Vitamin D3 (25 50 mcg PO DAILY tab 03/24/22 Rx Mcg = 1000 Iu)] Famotidine [Pepcid] 20 mg PO DAILY tab 03/24/22 Rx predniSONE 10 mg PO DAILY #30 tab 03/24/22 Rx Allergies Allergy/AdvReac Type Severity Reaction Status Date / Time Penicillins AdvReac Nausea & Verified 03/16/22 21:46 Vomiting Physical Exam Vitals: Vital Signs Temp Pulse Resp BP Pulse Ox 03/19/22 07:23 97.9 F 69 18 106/65 98 03/19/22 02:18 18 97 03/19/22 02:17 99.9 F H 77 20 138/77 90 L 03/18/22 20:11 99.5 F 66 16 134/78 94 L 03/18/22 20:00 66 16 03/18/22 14:00 99.9 F H 74 22 116/72 92 L 03/18/22 12:43 20 Intake and Output 03/18/22 03/19/22 03/19/22 22:59 06:59 14:59 Output Total 400 650 Balance -400 -650 Output: Urine 400 650 Other: Voiding Method Urinal External Catheter GENERAL DESCRIPTION: Elderly male lying in bed, no distress. No tachypnea or accessory muscle of respiration use. HEENT: Shows Pallor , no scleral icterus. Oral mucous membrane is dry. No pharyngeal erythema or thrush NECK: Trachea central, no thyromegaly. LUNGS: Unlabored breathing. Coarse breath sounds bilaterally. HEART: S1, S2, regular rate and rhythm. No loud murmur ABDOMEN: Soft, no tenderness , guarding or rigidity, no organomegaly EXTREMITIES: No edema of feet. SKIN: No rash, no masses palpable. NEUROLOGICAL: The patient is lethargic but arousable, mood and affect normal. Results CBC & Chem 7: 03/20/22 07:18 03/20/22 07:18 Labs: Abnormal Lab Results - Last 24 Hours (Table) 03/18/22 03/19/22 03/19/22 Range/Units 07:29 03:00 07:03 Potassium 3.4 L (3.5-5.1) mmol/L BUN 22 H (9-20) mg/dL Creatinine 1.35 H (0.66-1.25) mg/dL Est GFR (CKD-EPI)NonAf 56.3 L (60.0-200.0) Calcium 8.1 L 7.7 L (8.7-10.3) mg/dL Lactate Dehydrogenase (313-618) U/L C-Reactive Protein (<1.0) mg/dL SARS-CoV-2 (PCR) Detected A (Not Detectd) 03/19/22 Range/Units 07:03 Potassium (3.5-5.1) mmol/L BUN (9-20) mg/dL Creatinine (0.66-1.25) mg/dL Est GFR (CKD-EPI)NonAf (60.0-200.0) Calcium (8.7-10.3) mg/dL Lactate Dehydrogenase 677 H (313-618) U/L C-Reactive Protein 3.4 H (<1.0) mg/dL SARS-CoV-2 (PCR) (Not Detectd) Assessment and Plan (1) Pneumonia Status: Acute Code(s): J18.9 - PNEUMONIA, UNSPECIFIED ORGANISM SNOMED Code(s): 130414966 (2) Pneumonia due to COVID-19 virus Status: Acute Code(s): U07.1 - COVID-19; J12.82 - PNEUMONIA DUE TO CORONAVIRUS DISEASE 2019 SNOMED Code(s): 245920484437165086 Plan: 1patient presented to hospital with weakness multiple falls he did have a low- grade fever patient did have mild infiltrate on chest x-ray and did have hypoxemia requiring supplemental oxygen likely secondary to acute COVID-19 infection patient symptom onset has been less than 7 days and with hypoxemia and need for supplemental oxygen will qualify for remdesivir as well as steroids. 2we will start the patient on remdesivir per protocol and add dexamethasone. 3continue with heparin zinc and ascorbic acid. 4droplet isolation and respiratory support. We will follow on clinical condition and cultures to further adjust medication if needed Thank you for this consultation will follow this patient along with you Time with Patient: Greater than 30
[2022-03-20 07:55] LABS: ALT 24 U/L (4-49); AST 64 U/L (17-59); African American GFR (CKD) 78 (>60 ml/min/1.73 sqM); Albumin 3.3 g/dL (3.5-5.0); Albumin/Globulin Ratio 1.2; Alkaline Phosphatase 73 U/L (38-126); Anion Gap 12 mmol/L; Blood Urea Nitrogen 18 mg/dL (9-20); Calcium 7.9 mg/dL (8.4-10.2); Carbon Dioxide 22 mmol/L (22-30); Chloride 107 mmol/L (98-107); Globulin 2.8 g/dL; Glucose 108 mg/dL (74-99); Magnesium 1.8 mg/dL (1.6-2.3); Non-African American GFR(CKD) 68 (>60 ml/min/1.73 sqM); Sodium 141 mmol/L (137-145); Total Bilirubin 0.5 mg/dL (0.2-1.3); Total Protein 6.1 g/dL (6.3-8.2)
[2022-03-20 08:25] LABS: C Reactive Protein 4.5 mg/dL (<1.0)
[2022-03-20] MEDS: ALBUTEROL HFA INHALER INHALATION SCH ×4 (08:39→20:20)
[2022-03-20] MEDS ORDERED: REMDESIVIR 200 MG in SODIUM CHLORIDE 0.9% 250 ML IVPB ONE (09:00)
[2022-03-20] MEDS ORDERED: FAMOTIDINE 20 MG/2 ML VIAL IV SCH (09:00)
[2022-03-20] MEDS: ISOSORBIDE MONONITRATE ER 30 MG TAB.ER.24H PO SCH (09:54)
[2022-03-20] MEDS: ASCORBIC ACID 500 MG TAB PO SCH (09:54)
[2022-03-20] MEDS: MEMANTINE 5 MG TAB PO SCH ×2 (09:55→21:02)
[2022-03-20] MEDS: METOPROLOL TARTRATE 25 MG TAB PO SCH (09:55)
[2022-03-20] MEDS: SERTRALINE 50 MG TAB PO SCH (09:55)
[2022-03-20] MEDS: ZINC SULFATE 220 MG CAP PO SCH (09:55)
[2022-03-20] MEDS: FAMOTIDINE 20 MG TAB PO SCH (09:55)
[2022-03-20] MEDS: CHOLECALCIFEROL 25 MCG (1000 IU) TABLET PO SCH (09:55)
[2022-03-20] MEDS: HEPARIN SODIUM,PORCINE/PF 5,000 UNIT/0.5 ML SYRINGE SQ SCH ×2 (09:55→21:02)
[2022-03-20] MEDS: CLOPIDOGREL 75 MG TAB PO SCH (09:55)
[2022-03-20 11:18] LABS: Basophils # (A) 0.02 X 10*3/uL (0.00-0.10); Basophils % (A) 0.4 %; Eosinophils # (A) 0.01 X 10*3/uL (0.04-0.35); Eosinophils % (A) 0.2 %; HCT 44.4 % (39.6-50.0); HGB 13.8 g/dL (13.0-17.0); Immature Grans, Automated 0.2 %; Lymphocytes # (A) 0.35 X 10*3/uL (0.90-5.00); Lymphocytes % (A) 6.3 %; MCH 28.9 pg (27.0-32.0); MCHC 31.1 g/dL (32.0-37.0); MCV 92.9 fL (80.0-97.0); Mean Platelet Volume 10.1 fL (9.5-12.2); Monocytes # (A) 0.22 X 10*3/uL (0.20-1.00); Monocytes % (A) 3.9 %; NRBC Per 100 WBC 0 /100 WBCS (0.0-0.0); Neutrophils # (A) 4.99 X 10*3/uL (1.80-7.70); Platelet Count 202 X 10*3/uL (140-440); RBC 4.78 X 10*6/uL (4.40-5.60); RDW 13.7 % (11.5-14.5)
[2022-03-20] MEDS: SODIUM CHLORIDE 0.9% 1,000 ML IV SCH (13:26)
--- NOTE | 2022-03-20 15:37 | P.PN ---
Subjective Progress Note Date: 03/20/22 This is a pleasant 76 years old male with multiple medical problems as below presents with dyspnea. Patient has history of dementia however he can't provide information with the help of his at bedside Patient recently was diagnosed with a mass on his right ear pain is about 1 cm nodule was hemorrhagic and dry cab With no signs of cellulitis. He is supposed to have surgery removed with Dr. Asencio on March 29. Preop evaluation with certified medical transcriptionist he underwent stress test recently. However noticed that whenever patient walks he got more puffy and tachypneic, although at baseline he spent most of his time watching TV sitting do not think because of his history of Alzheimer dementia however twice when he was coming from the bathroom he fell into the bed without losing consciousness However yesterday he fell on the ground and the could not get him up so A, and cold ambulance for him Patient denies chest pain or coughing but he noticed to be slightly tachypneic when talking. Also noticed some more unusual exertional dyspnea He denies diarrhea or dysuria or urgency. No rash. No headache or weakness or numbness. Essential signs are absent. No smoking alcohol or illicit drugs Patient has a fever of 100.4 on admission Is unremarkable CBC, INR, BMP and liver enzymes. Urinalysis showing moderate blood. RBC 18. Urine analysis: On suspicious of infection Coronavirus not detected. EKG showing sinus tachycardia and 105 Chest x-ray: Mild subsegmental atelectasis right lung base which is slightly increased compared to old exam. No heart failure (per radiologist ). No pulmonary consolidation In the emergency room patient received IV fluid and ceftriaxone 03/18/2022 Patient looks the same as when he came in yesterday, he can tell his name and he follows commands appropriately however he is poor historian. awake alert answers some questions but forgetful and somewhat confused which is felt at least partly due to his Alzheimer dementia, but also could be secondary to infection or trauma. pt denies headache , no neck pain or stiffness This morning patient fell from the bed and hit his head therefore we did CT of the brain which was negative. Knee x-ray was negative because he hit his knee. We'll continue with the neuro check. He still has fever about 100. Patient was still has mild tachypnea. Aspiration pneumonia is suspected. Therefore we repeated the chest x-ray 2 views today which showed no acute process In the beginning patient pneumonia is suspected and he was started on Zosyn. Because repeated chest x-ray today shows no acute process. procalcitonin is not significantly elevated at 0.15. Patient still has fever. Therefore we repeated the blood culture.and we going to start the patient on empiric antibiotics with ceftriaxone, IV vancomycin and acyclovir to cover gram-negative, MRSA and viral infection, till he will be evaluated by infectious disease team we're going to consult infectious disease team. Ordered repeat culture and gentle hydration and close monitoring Discussed with the bedside nurse 03/19/2022 Patient evaluated today resting in bed. Currently on 2L nasal cannula oxygen support. Found to be positive for COVID infection. For this reason valcyclovir and vancomycin have been discontinued. He continues on IV ceftriaxone empirically. Creatinine today 1.35. Lisinopril is being held. He is being gently hydrated. Patient continues with low grade fever. Venous doppler negative for DVT. Overall the patient states he feels pretty good today. He will require sub acute rehab on discharge. 03/20/2022 Patient evaluated today resting in bed. He is requiring between 2 and 3 L of oxygen today, with saturations around 95%. Lung sounds are more ronchorous today. He has been started on remdesivir. Infectious disease is following. Creatinine has normalized today 1.06. Plan for D/C to rehab once completion of remdesivir. Review of Systems Constitutional: Reports fatigue denied any fever. Cardio vascular: denied any chest pain, palpitations Gastrointestinal: denied any nausea, vomiting, diarrhea, Pulmonary: Reports some shortness of breath and congested cough today. Neurologic denied any new focal deficits All inpatient medications were reviewed and appropriate changes in these medications as dictated in the interval history and assessment and plan. PHYSICAL EXAMINATION: GENERAL: The patient is alert and oriented x3, not in any acute distress. Well developed, well nourished. HEENT: Pupils are round and equally reacting to light. EOMI. No scleral icterus. No conjunctival pallor. Normocephalic, atraumatic. No pharyngeal erythema. No thyromegaly. CARDIOVASCULAR: S1 and S2 present. No murmurs, rubs, or gallops. PULMONARY: Coarse scattered rhonchi. ABDOMEN: Soft, nontender, nondistended, normoactive bowel sounds. No palpable organomegaly. MUSCULOSKELETAL: No joint swelling or deformity. EXTREMITIES: No cyanosis, clubbing, or pedal edema. NEUROLOGICAL: Gross neurological examination did not reveal any focal deficits. SKIN: No rashes. Assessment and Plan Assessment Recurrent falls at home Acute Covid 19 infection Acute hypoxic respiratory failure secondary to above Right lower lobe pneumonia versusis atelectasis is suspected with tachypnea hypoxia Elevated inflammatory markers consistent with covid infection Chronic elevation right hemidiaphragm Hypothyroidism Hypertension Hyperlipidemia Coronary artery disease prior PCI in 1999 History of depression, not an active issue Alzheimer Dementia GI Prophylaxis DVT Prophylaxis Full Code Plan Infectious disease consultation Patient has been started on remdesivir Continue IV hydration Lisinopril on hold Continue vitamin support Continue all other supportive care Subacute rehab on discharge The impression and plan of care has been dictated by Keiko Leija Nurse Practitioner as directed. Dr. Mechelle MD I have performed a history and physical examination and medical decision making of this patient, discussed the same with the dictator, and agree with the dictators assessment and plan as written, documented as a scribe. Based on total visit time, I have performed more than 50% of this visit. Objective - Vital Signs Vital signs: Vital Signs Temp 98.6 F 03/20/22 14:00 Pulse 79 03/20/22 14:00 Resp 16 03/20/22 14:00 BP 115/74 03/20/22 14:00 Pulse Ox 95 03/20/22 14:00 FiO2 Intake & Output 03/19/22 03/20/22 03/20/22 18:59 06:59 18:59 Intake Total 1080 600 Output Total 600 1200 Balance 480 -600 Intake: Intake, IV Titration 600 Amount Sodium Chloride 0.9% 1, 550 000 ml @ 50 mls/hr IV . Q20H SUJATHA Rx#:[id number] cefTRIAXone 2 gm In 50 Sodium Chloride 0.9% 50 ml @ 100 mls/hr IVPB HS SUJATHA Rx#:[id number] Oral 1080 Output: Urine 600 1200 Other: Voiding Method External Catheter External Catheter # Voids 1 # Bowel Movements 2 1 - Labs CBC & Chem 7: 03/20/22 07:18 03/20/22 07:18 Labs: Abnormal Lab Results - Last 24 Hours (Table) 03/20/22 03/20/22 03/20/22 Range/Units 07:18 07:18 07:18 MCHC 31.1 L (32.0-37.0) g/dL Lymphocytes # 0.35 L (0.90-5.00) X 10*3/uL Eosinophils # 0.01 L (0.04-0.35) X 10*3/uL D-Dimer (<0.60) mg/L FEU Glucose 108 H (74-99) mg/dL Calcium 7.9 L (8.4-10.2) mg/dL AST 64 H (17-59) U/L C-Reactive Protein 4.5 H (<1.0) mg/dL Total Protein 6.1 L (6.3-8.2) g/dL Albumin 3.3 L (3.5-5.0) g/dL Procalcitonin 0.13 H (0.02-0.09) ng/mL 03/20/22 Range/Units 07:18 MCHC (32.0-37.0) g/dL Lymphocytes # (0.90-5.00) X 10*3/uL Eosinophils # (0.04-0.35) X 10*3/uL D-Dimer 0.79 H (<0.60) mg/L FEU Glucose (74-99) mg/dL Calcium (8.4-10.2) mg/dL AST (17-59) U/L C-Reactive Protein (<1.0) mg/dL Total Protein (6.3-8.2) g/dL Albumin (3.5-5.0) g/dL Procalcitonin (0.02-0.09) ng/mL Microbiology - Last 24 Hours (Table) 03/18/22 20:45 Blood Culture - Preliminary Blood No Growth after 24 hours 03/18/22 19:50 Blood Culture - Preliminary Blood No Growth after 24 hours Assessment and Plan Time with Patient: Less than 30
[2022-03-20] MEDS: EZETIMIBE 10 MG TAB PO SCH (21:02)
[2022-03-20] MEDS: ATORVASTATIN 10 MG TAB PO SCH (21:02)
[2022-03-21] MEDS: LEVOTHYROXINE 25 MCG TAB PO SCH (05:42)
[2022-03-21] MEDS: SODIUM CHLORIDE 0.9% 1,000 ML IV SCH (05:44)
[2022-03-21] MEDS: ALBUTEROL HFA INHALER INHALATION SCH ×4 (09:25→19:49)
[2022-03-21] MEDS: HEPARIN SODIUM,PORCINE/PF 5,000 UNIT/0.5 ML SYRINGE SQ SCH (09:45)
[2022-03-21] MEDS: METOPROLOL TARTRATE 25 MG TAB PO SCH (09:45)
[2022-03-21] MEDS: MEMANTINE 5 MG TAB PO SCH ×2 (09:45→20:13)
[2022-03-21] MEDS: CHOLECALCIFEROL 25 MCG (1000 IU) TABLET PO SCH (09:45)
[2022-03-21] MEDS: SERTRALINE 50 MG TAB PO SCH (09:45)
[2022-03-21] MEDS: ZINC SULFATE 220 MG CAP PO SCH (09:45)
[2022-03-21] MEDS: DEXAMETHASONE SOD PHOSPHATE 10 MG/ML 1 ML VIAL IV SCH (09:45)
[2022-03-21] MEDS: CLOPIDOGREL 75 MG TAB PO SCH (09:45)
[2022-03-21] MEDS: ISOSORBIDE MONONITRATE ER 30 MG TAB.ER.24H PO SCH (09:45)
[2022-03-21] MEDS: ASCORBIC ACID 500 MG TAB PO SCH (09:45)
[2022-03-21] MEDS: FAMOTIDINE 20 MG TAB PO SCH (09:45)
[2022-03-21] MEDS: REMDESIVIR 100 MG in SODIUM CHLORIDE 0.9% 250 ML IVPB SCH (10:06)
[2022-03-21] MEDS: ENOXAPARIN 40 MG/0.4 ML SYRINGE SQ SCH (11:29)
--- NOTE | 2022-03-21 14:33 | P.PN ---
Progress Note - Text Progress Note Date: 03/21/22 Hospital course: This is a pleasant 76 years old male with multiple medical problems as below pre sents with dyspnea. Patient has history of dementia however he can't provide information with the help of his at bedside Patient recently was diagnosed with a mass on his right ear pain is about 1 cm nodule was hemorrhagic and dry cab With no signs of cellulitis. He is supposed to have surgery removed with Dr. Asencio on March 29. 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 However noticed that whenever patient walks he got more puffy and tachypneic, although at baseline he spent most of his time watching TV sitting do not think because of his history of Alzheimer dementia however twice when he was coming from the bathroom he fell into the bed without losing consciousness However yesterday he fell on the ground and the could not get him up so A, and cold ambulance for him Patient denies chest pain or coughing but he noticed to be slightly tachypneic when talking. Also noticed some more unusual exertional dyspnea He denies diarrhea or dysuria or urgency. No rash. No headache or weakness or numbness. Essential signs are absent. No smoking alcohol or illicit drugs Patient has a fever of 100.4 on admission Is unremarkable CBC, INR, BMP and liver enzymes. Urinalysis showing moderate blood. RBC 18. Urine analysis: On suspicious of infection Coronavirus not detected. EKG showing sinus tachycardia and 105 Chest x-ray: Mild subsegmental atelectasis right lung base which is slightly increased compared to old exam. No heart failure (per radiologist ). No pulmonary consolidation In the emergency room patient received IV fluid and ceftriaxone 03/18/2022 Patient looks the same as when he came in yesterday, he can tell his name and he follows commands appropriately however he is poor historian. awake alert answers some questions but forgetful and somewhat confused which is felt at least partly due to his Alzheimer dementia, but also could be secondary to infection or trauma. pt denies headache , no neck pain or stiffness This morning patient fell from the bed and hit his head therefore we did CT of the brain which was negative. Knee x-ray was negative because he hit his knee. We'll continue with the neuro check. He still has fever about 100. Patient was still has mild tachypnea. Aspiration pneumonia is suspected. Therefore we repeated the chest x-ray 2 views today which showed no acute process In the beginning patient pneumonia is suspected and he was started on Zosyn. Because repeated chest x-ray today shows no acute process. procalcitonin is not significantly elevated at 0.15. Patient still has fever. Therefore we repeated the blood culture.and we going to start the patient on empiric antibiotics with ceftriaxone, IV vancomycin and acyclovir to cover gram-negative, MRSA and viral infection, till he will be evaluated by infectious disease team we're going to consult infectious disease team. Ordered repeat culture and gentle hydration and close monitoring Discussed with the bedside nurse 03/19/2022 Patient evaluated today resting in bed. Currently on 2L nasal cannula oxygen support. Found to be positive for COVID infection. For this reason valcyclovir and vancomycin have been discontinued. He continues on IV ceftriaxone empirically. Creatinine today 1.35. Lisinopril is being held. He is being gently hydrated. Patient continues with low grade fever. Venous doppler negative for D VT. Overall the patient states he feels pretty good today. He will require sub acute rehab on discharge. 03/20/2022 Patient evaluated today resting in bed. He is requiring between 2 and 3 L of oxygen today, with saturations around 95%. Lung sounds are more ronchorous today. He has been started on remdesivir. Infectious disease is following. Creatinine has normalized today 1.06. Plan for D/C to rehab once completion of remdesivir. 03/21/2022: I assumed care of patient for [facility] Laying in bed. Some cough and shortness of breath. On nasal cannula. Lab the patient sit up in a chair use incentive spirometry. Started on IV Remdesivir. Also on Decadron. Eating well. Tired. Active Medications Acetaminophen (Acetaminophen Tab 325 Mg Tab) 650 mg PO Q6HR PRN PRN Reason: Mild Pain or Fever > 100.5 Last Admin: 03/19/22 02:20 Dose: 650 mg Albuterol Sulfate (Albuterol Hfa Inhaler) 1 puff INHALATION RT-QID [facility] Last Admin: 03/21/22 12:53 Dose: Not Given Ascorbic Acid (Ascorbic Acid 500 Mg Tab) 500 mg PO DAILY [facility] Last Admin: 03/21/22 09:45 Dose: 500 mg Atorvastatin Calcium (Atorvastatin 10 Mg Tab) 10 mg PO HS [facility] Last Admin: 03/20/22 21:02 Dose: 10 mg Cholecalciferol (Cholecalciferol 25 Mcg (1000 Iu) Tablet) 50 mcg PO DAILY [facility] Last Admin: 03/21/22 09:45 Dose: 50 mcg Clopidogrel Bisulfate (Clopidogrel 75 Mg Tab) 75 mg PO DAILY [facility] Last Admin: 03/21/22 09:45 Dose: 75 mg Dexamethasone Sodium Phosphate (Dexamethasone Sod Phosphate 10 Mg/Ml 1 Ml Vial) 6 mg IV DAILY [facility] Last Admin: 03/21/22 09:45 Dose: 6 mg Ezetimibe (Ezetimibe 10 Mg Tab) 10 mg PO HS [facility] Last Admin: 03/20/22 21:02 Dose: 10 mg Enoxaparin Sodium (Enoxaparin 40 Mg/0.4 Ml Syringe) 40 mg SQ DAILY [facility] Last Admin: 03/21/22 11:29 Dose: 40 mg Famotidine (Famotidine 20 Mg Tab) 20 mg PO DAILY [facility] Last Admin: 03/21/22 09:45 Dose: 20 mg Sodium Chloride (Saline 0.9%) 1,000 mls @ 50 mls/hr IV .Q20H [facility] Last Admin: 03/21/22 05:44 Dose: 50 mls/hr Remdesivir 100 mg/ Sodium (Chloride) 250 mls @ 250 mls/hr IVPB DAILY [facility] Stop: 03/24/22 09:59 Last Admin: 03/21/22 10:06 Dose: 250 mls/hr Isosorbide Mononitrate (Isosorbide Mononitrate Er 30 Mg Tab.Er.24h) 30 mg PO DAILY [facility] Last Admin: 03/21/22 09:45 Dose: 30 mg Levothyroxine Sodium (Levothyroxine 25 Mcg Tab) 25 mcg PO DAILY@0630 [facility] Last Admin: 03/21/22 05:42 Dose: 25 mcg Memantine (Memantine 5 Mg Tab) 5 mg PO BID [facility] Last Admin: 03/21/22 09:45 Dose: 5 mg Metoprolol Tartrate (Metoprolol Tartrate 25 Mg Tab) 25 mg PO DAILY [facility] Last Admin: 03/21/22 09:45 Dose: 25 mg Naloxone HCl (Naloxone 0.4 Mg/Ml 1 Ml Vial) 0.2 mg IV Q2M PRN PRN Reason: Opioid Reversal Sertraline HCl (Sertraline 50 Mg Tab) 50 mg PO DAILY [facility] Last Admin: 03/21/22 09:45 Dose: 50 mg Zinc Sulfate (Zinc Sulfate 220 Mg Cap) 220 mg PO DAILY [facility] Last Admin: 03/21/22 09:45 Dose: 220 mg On examination: VITAL SIGNS: [97.3, 59, 22, 116 and 82, 94% on 4 L] GENERAL APPEARANCE: Reclining in bed, tired, some shortness of breath PSYCHIATRY: Answering questions appropriately Rest of the exam per ID and nursing INVESTIGATIONS, reviewed in the clinical context: WBC 5.6 hemoglobin 13.8 platelets 202 progression 4 BUN 18 creatinine 1.06 pro- calcitonin 0.13 CRP 4.5 COVID 19 [PCR]: Detected Assessment and Plan -Recurrent falls at home, secondary to acute medical debility Fall precautions -Acute Covid 19 infection , causing pneumonitis IV Decadron, IV Remdesivir -Acute hypoxic respiratory failure secondary to above : Slow to respond Nasal cannula 4 L. Decadron -Chronic elevation right hemidiaphragm -Hypothyroidism Synthroid -Hypertension Lopressor -Hyperlipidemia vytorin -Coronary artery disease prior PCI in 1999 Plavix, Lopressor - depression, Zoloft -Moderate cognitive impairment secondary to Alzheimer Dementia Namenda IV Remdesivir day 1. Continue Decadron. Other medications to continue. Oral intake would. Cutback IV fluids. Subcu Lovenox. Oxygen supplementation. Incentive spirometry. Have the patient sit up in a chair.
[2022-03-21] MEDS: EZETIMIBE 10 MG TAB PO SCH (20:13)
[2022-03-21] MEDS: ATORVASTATIN 10 MG TAB PO SCH (20:14)
[2022-03-22] MEDS: LEVOTHYROXINE 25 MCG TAB PO SCH ×2 (06:15→08:36)
[2022-03-22] MEDS: METOPROLOL TARTRATE 25 MG TAB PO SCH (08:35)
[2022-03-22] MEDS: DEXAMETHASONE SOD PHOSPHATE 10 MG/ML 1 ML VIAL IV SCH (08:35)
[2022-03-22] MEDS: ENOXAPARIN 40 MG/0.4 ML SYRINGE SQ SCH (08:35)
[2022-03-22] MEDS: ISOSORBIDE MONONITRATE ER 30 MG TAB.ER.24H PO SCH (08:35)
[2022-03-22] MEDS: ZINC SULFATE 220 MG CAP PO SCH (08:36)
[2022-03-22] MEDS: SODIUM CHLORIDE 0.9% 1,000 ML IV SCH (08:36)
[2022-03-22] MEDS: MEMANTINE 5 MG TAB PO SCH ×2 (08:36→20:43)
[2022-03-22] MEDS: CLOPIDOGREL 75 MG TAB PO SCH (08:36)
[2022-03-22] MEDS: SERTRALINE 50 MG TAB PO SCH (08:36)
[2022-03-22] MEDS: CHOLECALCIFEROL 25 MCG (1000 IU) TABLET PO SCH (08:36)
[2022-03-22] MEDS: FAMOTIDINE 20 MG TAB PO SCH (08:36)
[2022-03-22] MEDS: ASCORBIC ACID 500 MG TAB PO SCH (08:36)
[2022-03-22] MEDS: REMDESIVIR 100 MG in SODIUM CHLORIDE 0.9% 250 ML IVPB SCH (08:51)
[2022-03-22] MEDS: ALBUTEROL HFA INHALER INHALATION SCH ×3 (11:30→21:48)
[2022-03-22 14:06] VITALS: BMI 29.1
--- NOTE | 2022-03-22 14:09 | P.PN ---
Progress Note - Text Progress Note Date: 03/22/22 Hospital course: This is a pleasant 76 years old male with multiple medical problems as below pr esents with dyspnea. Patient has history of dementia however he can't provide information with the help of his at bedside Patient recently was diagnosed with a mass on his right ear pain is about 1 cm nodule was hemorrhagic and dry cab With no signs of cellulitis. He is supposed to have surgery removed with Dr. Asencio on March 29. 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 However noticed that whenever patient walks he got more puffy and tachypneic, although at baseline he spent most of his time watching TV sitting do not think because of his history of Alzheimer dementia however twice when he was coming from the bathroom he fell into the bed without losing consciousness However yesterday he fell on the ground and the could not get him up so A, and cold ambulance for him Patient denies chest pain or coughing but he noticed to be slightly tachypneic when talking. Also noticed some more unusual exertional dyspnea He denies diarrhea or dysuria or urgency. No rash. No headache or weakness or numbness. Essential signs are absent. No smoking alcohol or illicit drugs Patient has a fever of 100.4 on admission Is unremarkable CBC, INR, BMP and liver enzymes. Urinalysis showing moderate blood. RBC 18. Urine analysis: On suspicious of infection Coronavirus not detected. EKG showing sinus tachycardia and 105 Chest x-ray: Mild subsegmental atelectasis right lung base which is slightly increased compared to old exam. No heart failure (per radiologist ). No pulmonary consolidation In the emergency room patient received IV fluid and ceftriaxone 03/18/2022 Patient looks the same as when he came in yesterday, he can tell his name and he follows commands appropriately however he is poor historian. awake alert answers some questions but forgetful and somewhat confused which is felt at least partly due to his Alzheimer dementia, but also could be secondary to infection or trauma. pt denies headache , no neck pain or stiffness This morning patient fell from the bed and hit his head therefore we did CT of the brain which was negative. Knee x-ray was negative because he hit his knee. We'll continue with the neuro check. He still has fever about 100. Patient was still has mild tachypnea. Aspiration pneumonia is suspected. Therefore we repeated the chest x-ray 2 views today which showed no acute process In the beginning patient pneumonia is suspected and he was started on Zosyn. Because repeated chest x-ray today shows no acute process. procalcitonin is not significantly elevated at 0.15. Patient still has fever. Therefore we repeated the blood culture.and we going to start the patient on empiric antibiotics with ceftriaxone, IV vancomycin and acyclovir to cover gram-negative, MRSA and viral infection, till he will be evaluated by infectious disease team we're going to consult infectious disease team. Ordered repeat culture and gentle hydration and close monitoring Discussed with the bedside nurse 03/19/2022 Patient evaluated today resting in bed. Currently on 2L nasal cannula oxygen support. Found to be positive for COVID infection. For this reason valcyclovir and vancomycin have been discontinued. He continues on IV ceftriaxone empirically. Creatinine today 1.35. Lisinopril is being held. He is being gently hydrated. Patient continues with low grade fever. Venous doppler negative for DVT. Overall the patient states he feels pretty good today. He will require sub acute rehab on discharge. 03/20/2022 Patient evaluated today resting in bed. He is requiring between 2 and 3 L of oxy gen today, with saturations around 95%. Lung sounds are more ronchorous today. He has been started on remdesivir. Infectious disease is following. Creatinine has normalized today 1.06. Plan for D/C to rehab once completion of remdesivir. 03/21/2022: I assumed care of patient for [facility] Laying in bed. Some cough and shortness of breath. On nasal cannula. Lab the patient sit up in a chair use incentive spirometry. Started on IV Remdesivir. Also on Decadron. Eating well. Tired. 03/22/2022: Sitting up in a chair. Eating well. On 3 L nasal cannula. Some cough. Tired. Getting Remdesivir and Decadron. Active Medications Acetaminophen (Acetaminophen Tab 325 Mg Tab) 650 mg PO Q6HR PRN PRN Reason: Mild Pain or Fever > 100.5 Last Admin: 03/19/22 02:20 Dose: 650 mg Albuterol Sulfate (Albuterol Hfa Inhaler) 1 puff INHALATION RT-QID [facility] Last Admin: 03/22/22 11:30 Dose: Not Given Ascorbic Acid (Ascorbic Acid 500 Mg Tab) 500 mg PO DAILY [facility] Last Admin: 03/22/22 08:36 Dose: 500 mg Atorvastatin Calcium (Atorvastatin 10 Mg Tab) 10 mg PO HS [facility] Last Admin: 03/21/22 20:14 Dose: 10 mg Cholecalciferol (Cholecalciferol 25 Mcg (1000 Iu) Tablet) 50 mcg PO DAILY [facility] Last Admin: 03/22/22 08:36 Dose: 50 mcg Clopidogrel Bisulfate (Clopidogrel 75 Mg Tab) 75 mg PO DAILY [facility] Last Admin: 03/22/22 08:36 Dose: 75 mg Dexamethasone Sodium Phosphate (Dexamethasone Sod Phosphate 10 Mg/Ml 1 Ml Vial) 6 mg IV DAILY [facility] Last Admin: 03/22/22 08:35 Dose: 6 mg Ezetimibe (Ezetimibe 10 Mg Tab) 10 mg PO HS [facility] Last Admin: 03/21/22 20:13 Dose: 10 mg Enoxaparin Sodium (Enoxaparin 40 Mg/0.4 Ml Syringe) 40 mg SQ DAILY [facility] Last Admin: 03/22/22 08:35 Dose: 40 mg Famotidine (Famotidine 20 Mg Tab) 20 mg PO DAILY [facility] Last Admin: 03/22/22 08:36 Dose: 20 mg Sodium Chloride (Saline 0.9%) 1,000 mls @ 20 mls/hr IV .Q24H [facility] Last Admin: 03/22/22 08:36 Dose: 20 mls/hr Remdesivir 100 mg/ Sodium (Chloride) 250 mls @ 250 mls/hr IVPB DAILY [facility] Stop: 03/24/22 09:59 Last Admin: 03/22/22 08:51 Dose: 250 mls/hr Isosorbide Mononitrate (Isosorbide Mononitrate Er 30 Mg Tab.Er.24h) 30 mg PO DAILY [facility] Last Admin: 03/22/22 08:35 Dose: 30 mg Levothyroxine Sodium (Levothyroxine 25 Mcg Tab) 25 mcg PO DAILY@0630 [facility] Last Admin: 03/22/22 08:36 Dose: 25 mcg Memantine (Memantine 5 Mg Tab) 5 mg PO BID [facility] Last Admin: 03/22/22 08:36 Dose: 5 mg Metoprolol Tartrate (Metoprolol Tartrate 25 Mg Tab) 25 mg PO DAILY [facility] Last Admin: 03/22/22 08:35 Dose: 25 mg Naloxone HCl (Naloxone 0.4 Mg/Ml 1 Ml Vial) 0.2 mg IV Q2M PRN PRN Reason: Opioid Reversal Sertraline HCl (Sertraline 50 Mg Tab) 50 mg PO DAILY [facility] Last Admin: 03/22/22 08:36 Dose: 50 mg Zinc Sulfate (Zinc Sulfate 220 Mg Cap) 220 mg PO DAILY [facility] Last Admin: 03/22/22 08:36 Dose: 220 mg On examination: VITAL SIGNS: 98.3, 55, 18, 153/70, 99% on 3 L GENERAL APPEARANCE: Sitting in a recliner, tired, some shortness of breath PSYCHIATRY: Answering questions appropriately Rest of the exam per ID and nursing INVESTIGATIONS, reviewed in the clinical context: WBC 5.6 hemoglobin 13.8 platelets 202 progression 4 BUN 18 creatinine 1.06 pro- calcitonin 0.13 CRP 4.5 COVID 19 [PCR]: Detected Assessment and Plan -Recurrent falls at home, secondary to acute medical debility Fall precautions -Acute Covid 19 infection , causing pneumonitis IV Decadron, IV Remdesivir -Acute hypoxic respiratory failure secondary to above : Slow to respond Nasal cannula 3 L. Decadron -Chronic elevation right hemidiaphragm -Hypothyroidism Synthroid -Hypertension Lopressor -Hyperlipidemia vytorin -Coronary artery disease prior PCI in 1999 Plavix, Lopressor - depression, Zoloft -Moderate cognitive impairment secondary to Alzheimer Dementia Namenda IV Remdesivir, Decadron. Other medications to continue. Subcu Lovenox. Oxygen supplementation. Incentive spirometry. Discussed with patient.
[2022-03-22] MEDS: EZETIMIBE 10 MG TAB PO SCH (20:43)
[2022-03-22] MEDS: ATORVASTATIN 10 MG TAB PO SCH (20:43)
--- NOTE | 2022-03-22 23:07 | P.PN ---
Subjective Progress Note Date: 03/20/22 Principal diagnosis: Covid 19 pneumonia Patient is a 76-year-old male presented to hospital as weakness and difficulty breathing any cough in this patient has been diagnosed with covid 19 pneumonia. On today's evaluation that is 03/20/2022, the patient did have a low-grade fever last night of 100.4 however the patient is afebrile this morning, the patient is currently breathing comfortably on 4 L nasal cannula, currently denies having any chest pain no worsening cough or sputum production no abdominal pain or any Objective - Vital Signs Vital signs: Vital Signs Temp 98.6 F 03/20/22 14:00 Pulse 79 03/20/22 14:00 Resp 16 03/20/22 14:00 BP 115/74 03/20/22 14:00 Pulse Ox 95 03/20/22 14:00 FiO2 Intake & Output 03/19/22 03/20/22 03/20/22 18:59 06:59 18:59 Intake Total 1080 600 720 Output Total 600 1200 625 Balance 480 -600 95 Intake: Intake, IV Titration 600 Amount Sodium Chloride 0.9% 1, 550 000 ml @ 50 mls/hr IV . Q20H [facility] Rx#:[id number] cefTRIAXone 2 gm In 50 Sodium Chloride 0.9% 50 ml @ 100 mls/hr IVPB HS [facility] Rx#:[id number] Oral 1080 720 Output: Urine 600 1200 625 Other: Voiding Method External Catheter External Catheter External Catheter # Voids 2 # Bowel Movements 2 3 - Exam GENERAL DESCRIPTION: An elderly male lying in bed in no distress RESPIRATORY SYSTEM: Unlabored breathing , decreased breath sounds at bases HEART: S1 S2 regular rate and rhythm , ABDOMEN: Soft , no tenderness EXTREMITIES: No edema feet - Labs CBC & Chem 7: 03/20/22 07:18 03/20/22 07:18 Labs: Abnormal Lab Results - Last 24 Hours (Table) 03/20/22 03/20/22 03/20/22 Range/Units 07:18 07:18 07:18 MCHC 31.1 L (32.0-37.0) g/dL Lymphocytes # 0.35 L (0.90-5.00) X 10*3/uL Eosinophils # 0.01 L (0.04-0.35) X 10*3/uL D-Dimer (<0.60) mg/L FEU Glucose 108 H (74-99) mg/dL Calcium 7.9 L (8.4-10.2) mg/dL AST 64 H (17-59) U/L C-Reactive Protein 4.5 H (<1.0) mg/dL Total Protein 6.1 L (6.3-8.2) g/dL Albumin 3.3 L (3.5-5.0) g/dL Procalcitonin 0.13 H (0.02-0.09) ng/mL 03/20/22 Range/Units 07:18 MCHC (32.0-37.0) g/dL Lymphocytes # (0.90-5.00) X 10*3/uL Eosinophils # (0.04-0.35) X 10*3/uL D-Dimer 0.79 H (<0.60) mg/L FEU Glucose (74-99) mg/dL Calcium (8.4-10.2) mg/dL AST (17-59) U/L C-Reactive Protein (<1.0) mg/dL Total Protein (6.3-8.2) g/dL Albumin (3.5-5.0) g/dL Procalcitonin (0.02-0.09) ng/mL Microbiology - Last 24 Hours (Table) 03/18/22 20:45 Blood Culture - Preliminary Blood No Growth after 24 hours 03/18/22 19:50 Blood Culture - Preliminary Blood No Growth after 24 hours Assessment and Plan (1) Pneumonia due to COVID-19 virus Current Visit: Yes Status: Acute Code(s): U07.1 - COVID-19; J12.82 - PNEUMONIA DUE TO CORONAVIRUS DISEASE 2018 SNOMED Code(s): 084918484731360458 Plan: 1patient presented to hospital with weakness multiple falls he did have a low- grade fever patient did have mild infiltrate on chest x-ray and did have hypoxemia requiring supplemental oxygen likely secondary to acute COVID-19 infection patient symptom onset has been less than 7 days and with hypoxemia and need for supplemental oxygen will qualify for remdesivir as well as steroids. 2patient to continue with remdesivir per protocol along with dexamethasone heparin zinc and ascorbic acid. 3droplet isolation and respiratory support. Time with Patient: Less than 30
--- NOTE | 2022-03-22 23:09 | P.PN ---
Subjective Progress Note Date: 03/21/22 Principal diagnosis: Covid 19 pneumonia Patient is a 76-year-old male presented to hospital as weakness and difficulty breathing any cough in this patient has been diagnosed with covid 19 pneumonia. On today's evaluation that is 03/21/2022, the patient is afebrile this morning, the patient is currently breathing comfortably on 3 L nasal cannula, the patient denies having any chest pain no worsening cough or sputum production no abdominal pain or any Objective - Vital Signs Vital signs: Vital Signs Temp 97.9 F 03/21/22 20:02 Pulse 59 L 03/21/22 20:02 Resp 17 03/21/22 20:02 BP 148/80 03/21/22 20:02 Pulse Ox 99 03/21/22 20:02 FiO2 Intake & Output 03/21/22 03/21/22 03/22/22 06:59 18:59 06:59 Intake Total 700 250 Balance 700 250 Intake: Intake, IV Titration 650 250 Amount Remdesivir 100 mg In 250 Sodium Chloride 0.9% 250 ml @ 250 mls/hr IVPB DAILY [facility] Rx#:[id number] Sodium Chloride 0.9% 1, 600 000 ml @ 20 mls/hr IV . Q24H [facility] Rx#:[id number] cefTRIAXone 2 gm In 50 Sodium Chloride 0.9% 50 ml @ 100 mls/hr IVPB HS [facility] Rx#:[id number] Oral 50 Other: Voiding Method External Catheter External Catheter External Catheter # Voids 3 # Bowel Movements 1 - Exam GENERAL DESCRIPTION: An elderly male lying in bed in no distress RESPIRATORY SYSTEM: Unlabored breathing , decreased breath sounds at bases HEART: S1 S2 regular rate and rhythm , ABDOMEN: Soft , no tenderness EXTREMITIES: No edema feet - Labs CBC & Chem 7: 03/20/22 07:18 03/20/22 07:18 Labs: Microbiology - Last 24 Hours (Table) 03/18/22 20:45 Blood Culture - Preliminary Blood No Growth after 72 hours 03/18/22 19:50 Blood Culture - Preliminary Blood No Growth after 72 hours 03/20/22 07:18 Blood Culture - Preliminary Blood No Growth after 24 hours Assessment and Plan (1) Pneumonia due to COVID-19 virus Current Visit: Yes Status: Acute Code(s): U07.1 - COVID-19; J12.82 - PNEUMONIA DUE TO CORONAVIRUS DISEASE 2019 SNOMED Code(s): 964213909816771254 Plan: 1patient presented to hospital with weakness multiple falls he did have a low- grade fever patient did have mild infiltrate on chest x-ray and did have hypoxemia requiring supplemental oxygen likely secondary to acute COVID-19 infection patient symptom onset has been less than 7 days and with hypoxemia and need for supplemental oxygen will qualify for remdesivir as well as steroids. 2patient seemed to have shown clinical improvement and will continue with remdesivir per protocol along with dexamethasone heparin zinc and ascorbic acid. 3droplet isolation and respiratory support. Time with Patient: Less than 30
--- NOTE | 2022-03-22 23:10 | P.PN ---
Subjective Progress Note Date: 03/22/22 Principal diagnosis: Covid 19 pneumonia Patient is a 76-year-old male presented to hospital as weakness and difficulty breathing any cough in this patient has been diagnosed with covid 19 pneumonia. On today's evaluation that is 03/22/2022, the patient remains to be afebrile , the patient is currently breathing comfortably on 3 L nasal cannula, the patient denies having any chest pain , the patient cough is decreased intensity not bringing up any sputum no abdominal pain or diarrhea Objective - Vital Signs Vital signs: Vital Signs Temp 98.3 F 03/22/22 10:37 Pulse 55 L 03/22/22 10:37 Resp 18 03/22/22 10:37 BP 153/70 03/22/22 10:37 Pulse Ox 99 03/22/22 10:37 FiO2 Intake & Output 03/21/22 03/22/22 03/22/22 18:59 06:59 18:59 Intake Total 250 250 Balance 250 250 Weight 84.368 kg Intake: Intake, IV Titration 250 250 Amount Remdesivir 100 mg In 250 250 Sodium Chloride 0.9% 250 ml @ 250 mls/hr IVPB DAILY [facility] Rx#:[id number] Other: Voiding Method External Catheter External Catheter # Voids 3 - Exam GENERAL DESCRIPTION: An elderly male lying in bed in no distress RESPIRATORY SYSTEM: Unlabored breathing , decreased breath sounds at bases HEART: S1 S2 regular rate and rhythm , ABDOMEN: Soft , no tenderness EXTREMITIES: No edema feet - Labs CBC & Chem 7: 03/20/22 07:18 03/20/22 07:18 Labs: Microbiology - Last 24 Hours (Table) 03/20/22 07:18 Blood Culture - Preliminary Blood No Growth after 48 hours 03/18/22 20:45 Blood Culture - Preliminary Blood No Growth after 72 hours 03/18/22 19:50 Blood Culture - Preliminary Blood No Growth after 72 hours Assessment and Plan (1) Pneumonia due to COVID-19 virus Current Visit: Yes Status: Acute Code(s): U07.1 - COVID-19; J12.82 - PNEUMONIA DUE TO CORONAVIRUS DISEASE 2019 SNOMED Code(s): 867895323691649372 Plan: 1patient presented to hospital with weakness multiple falls he did have a low- grade fever patient did have mild infiltrate on chest x-ray and did have hypoxemia requiring supplemental oxygen likely secondary to acute COVID-19 infection patient symptom onset has been less than 7 days and with hypoxemia and need for supplemental oxygen will qualify for remdesivir as well as steroids. 2patient has shown clinical improvement and will continue with remdesivir to finish a 5 day course of therapy along with dexamethasone heparin zinc and ascorbic acid. Time with Patient: Less than 30
[2022-03-23] MEDS: LEVOTHYROXINE 25 MCG TAB PO SCH (06:28)
[2022-03-23] MEDS: SERTRALINE 50 MG TAB PO SCH (08:13)
[2022-03-23] MEDS: METOPROLOL TARTRATE 25 MG TAB PO SCH (08:13)
[2022-03-23] MEDS: FAMOTIDINE 20 MG TAB PO SCH (08:13)
[2022-03-23] MEDS: MEMANTINE 5 MG TAB PO SCH ×2 (08:13→21:08)
[2022-03-23] MEDS: ENOXAPARIN 40 MG/0.4 ML SYRINGE SQ SCH (08:13)
[2022-03-23] MEDS: ASCORBIC ACID 500 MG TAB PO SCH (08:13)
[2022-03-23] MEDS: ISOSORBIDE MONONITRATE ER 30 MG TAB.ER.24H PO SCH (08:13)
[2022-03-23] MEDS: CLOPIDOGREL 75 MG TAB PO SCH (08:13)
[2022-03-23] MEDS: CHOLECALCIFEROL 25 MCG (1000 IU) TABLET PO SCH (08:13)
[2022-03-23] MEDS: ZINC SULFATE 220 MG CAP PO SCH (08:13)
[2022-03-23] MEDS: SODIUM CHLORIDE 0.9% 1,000 ML IV SCH (08:14)
[2022-03-23] MEDS: DEXAMETHASONE SOD PHOSPHATE 10 MG/ML 1 ML VIAL IV SCH (08:14)
[2022-03-23] MEDS: ALBUTEROL HFA INHALER INHALATION SCH ×4 (08:55→21:02)
[2022-03-23] MEDS: REMDESIVIR 100 MG in SODIUM CHLORIDE 0.9% 250 ML IVPB SCH (09:40)
--- NOTE | 2022-03-23 12:48 | P.PN ---
Progress Note - Text Progress Note Date: 03/23/22 Hospital course: This is a pleasant 76 years old male with multiple medical problems as below pr esents with dyspnea. Patient has history of dementia however he can't provide information with the help of his at bedside Patient recently was diagnosed with a mass on his right ear pain is about 1 cm nodule was hemorrhagic and dry cab With no signs of cellulitis. He is supposed to have surgery removed with Dr. Asencio on March 29. Preop evaluation with roll wrapper he underwent stress test recently. However noticed that whenever patient walks he got more puffy and tachypneic, although at baseline he spent most of his time watching TV sitting do not think because of his history of Alzheimer dementia however twice when he was coming from the bathroom he fell into the bed without losing consciousness However yesterday he fell on the ground and the could not get him up so A, and cold ambulance for him Patient denies chest pain or coughing but he noticed to be slightly tachypneic when talking. Also noticed some more unusual exertional dyspnea He denies diarrhea or dysuria or urgency. No rash. No headache or weakness or numbness. Essential signs are absent. No smoking alcohol or illicit drugs Patient has a fever of 100.4 on admission Is unremarkable CBC, INR, BMP and liver enzymes. Urinalysis showing moderate blood. RBC 18. Urine analysis: On suspicious of infection Coronavirus not detected. EKG showing sinus tachycardia and 105 Chest x-ray: Mild subsegmental atelectasis right lung base which is slightly increased compared to old exam. No heart failure (per radiologist ). No pulmonary consolidation In the emergency room patient received IV fluid and ceftriaxone 03/18/2022 Patient looks the same as when he came in yesterday, he can tell his name and he follows commands appropriately however he is poor historian. awake alert answers some questions but forgetful and somewhat confused which is felt at least partly due to his Alzheimer dementia, but also could be secondary to infection or trauma. pt denies headache , no neck pain or stiffness This morning patient fell from the bed and hit his head therefore we did CT of the brain which was negative. Knee x-ray was negative because he hit his knee. We'll continue with the neuro check. He still has fever about 100. Patient was still has mild tachypnea. Aspiration pneumonia is suspected. Therefore we repeated the chest x-ray 2 views today which showed no acute process In the beginning patient pneumonia is suspected and he was started on Zosyn. Because repeated chest x-ray today shows no acute process. procalcitonin is not significantly elevated at 0.15. Patient still has fever. Therefore we repeated the blood culture.and we going to start the patient on empiric antibiotics with ceftriaxone, IV vancomycin and acyclovir to cover gram-negative, MRSA and viral infection, till he will be evaluated by infectious disease team we're going to consult infectious disease team. Ordered repeat culture and gentle hydration and close monitoring Discussed with the bedside nurse 03/19/2022 Patient evaluated today resting in bed. Currently on 2L nasal cannula oxygen support. Found to be positive for COVID infection. For this reason valcyclovir and vancomycin have been discontinued. He continues on IV ceftriaxone empirically. Creatinine today 1.35. Lisinopril is being held. He is being gently hydrated. Patient continues with low grade fever. Venous doppler negative for DVT. Overall the patient states he feels pretty good today. He will require sub acute rehab on discharge. 03/20/2022 Patient evaluated today resting in bed. He is requiring between 2 and 3 L of oxy gen today, with saturations around 95%. Lung sounds are more ronchorous today. He has been started on remdesivir. Infectious disease is following. Creatinine has normalized today 1.06. Plan for D/C to rehab once completion of remdesivir. 03/21/2022: I assumed care of patient for [facility]ist Laying in bed. Some cough and shortness of breath. On nasal cannula. Lab the patient sit up in a chair use incentive spirometry. Started on IV Remdesivir. Also on Decadron. Eating well. Tired. 03/22/2022: Sitting up in a chair. Eating well. On 3 L nasal cannula. Some cough. Tired. Getting Remdesivir and Decadron. 03/23/2022: Reclining in bed. Eating good. On Remdesivir and Decadron. Spoke to corrections caseworker looking for ECF placement for rehab. On 3 L nasal cannula. Active Medications Acetaminophen (Acetaminophen Tab 325 Mg Tab) 650 mg PO Q6HR PRN PRN Reason: Mild Pain or Fever > 100.5 Last Admin: 03/19/22 02:20 Dose: 650 mg Albuterol Sulfate (Albuterol Hfa Inhaler) 1 puff INHALATION RT-QID [facility] Last Admin: 03/23/22 11:55 Dose: Not Given Ascorbic Acid (Ascorbic Acid 500 Mg Tab) 500 mg PO DAILY [facility] Last Admin: 03/23/22 08:13 Dose: 500 mg Atorvastatin Calcium (Atorvastatin 10 Mg Tab) 10 mg PO HS [facility] Last Admin: 03/22/22 20:43 Dose: 10 mg Cholecalciferol (Cholecalciferol 25 Mcg (1000 Iu) Tablet) 50 mcg PO DAILY [facility] Last Admin: 03/23/22 08:13 Dose: 50 mcg Clopidogrel Bisulfate (Clopidogrel 75 Mg Tab) 75 mg PO DAILY [facility] Last Admin: 03/23/22 08:13 Dose: 75 mg Dexamethasone Sodium Phosphate (Dexamethasone Sod Phosphate 10 Mg/Ml 1 Ml Vial) 6 mg IV DAILY [facility] Last Admin: 03/23/22 08:14 Dose: 6 mg Ezetimibe (Ezetimibe 10 Mg Tab) 10 mg PO HS [facility] Last Admin: 03/22/22 20:43 Dose: 10 mg Enoxaparin Sodium (Enoxaparin 40 Mg/0.4 Ml Syringe) 40 mg SQ DAILY [facility] Last Admin: 03/23/22 08:13 Dose: 40 mg Famotidine (Famotidine 20 Mg Tab) 20 mg PO DAILY [facility] Last Admin: 03/23/22 08:13 Dose: 20 mg Sodium Chloride (Saline 0.9%) 1,000 mls @ 20 mls/hr IV .Q24H [facility] Last Admin: 03/23/22 08:14 Dose: 20 mls/hr Remdesivir 100 mg/ Sodium (Chloride) 250 mls @ 250 mls/hr IVPB DAILY [facility] Stop: 03/24/22 09:59 Last Admin: 03/23/22 09:40 Dose: 250 mls/hr Isosorbide Mononitrate (Isosorbide Mononitrate Er 30 Mg Tab.Er.24h) 30 mg PO DAILY [facility] Last Admin: 03/23/22 08:13 Dose: 30 mg Levothyroxine Sodium (Levothyroxine 25 Mcg Tab) 25 mcg PO DAILY@0630 [facility] Last Admin: 03/23/22 06:28 Dose: 25 mcg Memantine (Memantine 5 Mg Tab) 5 mg PO BID [facility] Last Admin: 03/23/22 08:13 Dose: 5 mg Metoprolol Tartrate (Metoprolol Tartrate 25 Mg Tab) 25 mg PO DAILY [facility] Last Admin: 03/23/22 08:13 Dose: 25 mg Naloxone HCl (Naloxone 0.4 Mg/Ml 1 Ml Vial) 0.2 mg IV Q2M PRN PRN Reason: Opioid Reversal Sertraline HCl (Sertraline 50 Mg Tab) 50 mg PO DAILY [facility] Last Admin: 03/23/22 08:13 Dose: 50 mg Zinc Sulfate (Zinc Sulfate 220 Mg Cap) 220 mg PO DAILY [facility] Last Admin: 03/23/22 08:13 Dose: 220 mg On examination: VITAL SIGNS: 97.8, 58, 17, 145/68, 97% on 3 L GENERAL APPEARANCE: Reclining in bed, tired, some shortness of breath PSYCHIATRY: Answering questions appropriately Rest of the exam per ID and nursing INVESTIGATIONS, reviewed in the clinical context: WBC 5.6 hemoglobin 13.8 platelets 202 progression 4 BUN 18 creatinine 1.06 pro- calcitonin 0.13 CRP 4.5 COVID 19 [PCR]: Detected Assessment and Plan -Recurrent falls at home, secondary to acute medical debility Fall precautions -Acute Covid 19 infection , causing pneumonitis IV Decadron, IV Remdesivir -Acute hypoxic respiratory failure secondary to above : Nasal cannula 3 L. Decadron -Chronic elevation right hemidiaphragm -Hypothyroidism Synthroid -Hypertension Lopressor -Hyperlipidemia vytorin -Coronary artery disease prior PCI in 1999 Plavix, Lopressor - depression, Zoloft -Moderate cognitive impairment secondary to Alzheimer Dementia Namenda IV Remdesivir, Decadron. Spoke to the nurse that the patient sit up in a chair.. Subcu Lovenox. Oxygen supplementation. Incentive spirometry. Discussed with patient. Possible discharge to rehab when ready. Try to taper down oxygen.
[2022-03-23] MEDS: ATORVASTATIN 10 MG TAB PO SCH (21:08)
[2022-03-23] MEDS: EZETIMIBE 10 MG TAB PO SCH (21:08)
[2022-03-24] MEDS: LEVOTHYROXINE 25 MCG TAB PO SCH (06:31)
[2022-03-24] MEDS: ALBUTEROL HFA INHALER INHALATION SCH ×2 (07:46→11:12)
[2022-03-24] MEDS: CHOLECALCIFEROL 25 MCG (1000 IU) TABLET PO SCH (08:33)
[2022-03-24] MEDS: ISOSORBIDE MONONITRATE ER 30 MG TAB.ER.24H PO SCH (08:33)
[2022-03-24] MEDS: ASCORBIC ACID 500 MG TAB PO SCH (08:33)
[2022-03-24] MEDS: SERTRALINE 50 MG TAB PO SCH (08:33)
[2022-03-24] MEDS: METOPROLOL TARTRATE 25 MG TAB PO SCH (08:33)
[2022-03-24] MEDS: ZINC SULFATE 220 MG CAP PO SCH (08:33)
[2022-03-24] MEDS: FAMOTIDINE 20 MG TAB PO SCH (08:33)
[2022-03-24] MEDS: ENOXAPARIN 40 MG/0.4 ML SYRINGE SQ SCH (08:34)
[2022-03-24] MEDS: CLOPIDOGREL 75 MG TAB PO SCH (08:34)
[2022-03-24] MEDS: MEMANTINE 5 MG TAB PO SCH (08:34)
--- NOTE | 2022-03-24 10:18 | P.PN ---
Subjective Progress Note Date: 03/23/22 Principal diagnosis: Covid 19 pneumonia Patient is a 76-year-old male presented to hospital as weakness and difficulty breathing any cough in this patient has been diagnosed with covid 19 pneumonia. On today's evaluation that is 03/23/2022, the patient continues to be afebrile , the patient is breathing comfortably on 3 L nasal cannula, the patient denies having any chest pain , the patient cough as decreased intensity and mostly dry in nature, no abdominal pain or diarrhea Objective - Vital Signs Vital signs: Vital Signs Temp 97.8 F 03/23/22 10:00 Pulse 58 L 03/23/22 10:00 Resp 17 03/23/22 10:00 BP 170/81 03/23/22 10:00 Pulse Ox 96 03/23/22 10:00 FiO2 Intake & Output 03/22/22 03/23/22 03/23/22 18:59 06:59 18:59 Intake Total 250 Balance 250 Weight 84.368 kg Intake: Intake, IV Titration 250 Amount Remdesivir 100 mg In 250 Sodium Chloride 0.9% 250 ml @ 250 mls/hr IVPB DAILY [facility] Rx#:[id number] Other: # Voids 5 - Exam GENERAL DESCRIPTION: An elderly male lying in bed in no distress RESPIRATORY SYSTEM: Unlabored breathing , decreased breath sounds at bases HEART: S1 S2 regular rate and rhythm , ABDOMEN: Soft , no tenderness EXTREMITIES: No edema feet - Labs CBC & Chem 7: 03/20/22 07:18 03/20/22 07:18 Labs: Abnormal Lab Results - Last 24 Hours (Table) 03/23/22 03/23/22 Range/Units 08:21 10:19 D-Dimer 0.62 H (<0.60) mg/L FEU C-Reactive Protein 1.9 H (<1.0) mg/dL Microbiology - Last 24 Hours (Table) 03/20/22 07:18 Blood Culture - Preliminary Blood No Growth after 72 hours 03/18/22 20:45 Blood Culture - Preliminary Blood No Growth after 96 hours 03/18/22 19:50 Blood Culture - Preliminary Blood No Growth after 96 hours Assessment and Plan (1) Pneumonia due to COVID-19 virus Current Visit: Yes Status: Acute Code(s): U07.1 - COVID-19; J12.82 - PNEUMONIA DUE TO CORONAVIRUS DISEASE 2019 SNOMED Code(s): 169755807621248904 Plan: 1patient presented to hospital with weakness multiple falls he did have a low- grade fever patient did have mild infiltrate on chest x-ray and did have hypoxemia requiring supplemental oxygen likely secondary to acute COVID-19 infection patient symptom onset has been less than 7 days and with hypoxemia and need for supplemental oxygen will qualify for remdesivir as well as steroids. 2patient has shown clinical improvement , patient to finish 5 day course of remdesivir and continue with dexamethasone heparin zinc and ascorbic acid. Time with Patient: Less than 30
[2022-03-24] MEDS: REMDESIVIR 100 MG in SODIUM CHLORIDE 0.9% 250 ML IVPB SCH (10:49)
[2022-03-24] MEDS: DEXAMETHASONE SOD PHOSPHATE 10 MG/ML 1 ML VIAL IV SCH (10:51)
[2022-03-24 11:11] VITALS: BP 144/71; PULSE 52; RESP 17; TEMP 97.8
--- NOTE | 2022-03-24 11:43 | P.DS ---
Providers Date of admission: 03/16/22 22:22 Expected date of discharge: 03/24/22 Attending physician: Humberto Caro Consults: 03/18/22 19:06 Consult Physician Urgent Consulting Provider: Juan Kitchen Consult Reason/Comments: fever Do you want consulting provider notified?: Yes Primary care physician: [facility] Course: Hospital course: This is a pleasant 76 years old male with multiple medical problems as below presents with dyspnea. Patient has history of dementia however he can't provide information with the help of his at bedside Patient recently was diagnosed with a mass on his right ear pain is about 1 cm nodule was hemorrhagic and dry cab With no signs of cellulitis. He is supposed to have surgery removed with Dr. Asencio on March 29. Preop evaluation with flat bed knitter he underwent stress test recently. However noticed that whenever patient walks he got more puffy and tachypneic, although at baseline he spent most of his time watching TV sitting do not think because of his history of Alzheimer dementia however twice when he was coming from the bathroom he fell into the bed without losing consciousness However yesterday he fell on the ground and the could not get him up so A, and cold ambulance for him Patient denies chest pain or coughing but he noticed to be slightly tachypneic when talking. Also noticed some more unusual exertional dyspnea He denies diarrhea or dysuria or urgency. No rash. No headache or weakness or numbness. Essential signs are absent. No smoking alcohol or illicit drugs Patient has a fever of 100.4 on admission Is unremarkable CBC, INR, BMP and liver enzymes. Urinalysis showing moderate blood. RBC 18. Urine analysis: On suspicious of infection Coronavirus not detected. EKG showing sinus tachycardia and 105 Chest x-ray: Mild subsegmental atelectasis right lung base which is slightly increased compared to old exam. No heart failure (per radiologist ). No pulmonary consolidation In the emergency room patient received IV fluid and ceftriaxone 03/18/2022 Patient looks the same as when he came in yesterday, he can tell his name and he follows commands appropriately however he is poor historian. awake alert answers some questions but forgetful and somewhat confused which is felt at least partly due to his Alzheimer dementia, but also could be secondary to infection or trauma. pt denies headache , no neck pain or stiffness This morning patient fell from the bed and hit his head therefore we did CT of the brain which was negative. Knee x-ray was negative because he hit his knee. We'll continue with the neuro check. He still has fever about 100. Patient was still has mild tachypnea. Aspiration pneumonia is suspected. Therefore we repeated the chest x-ray 2 views today which showed no acute process In the beginning patient pneumonia is suspected and he was started on Zosyn. Because repeated chest x-ray today shows no acute process. procalcitonin is not significantly elevated at 0.15. Patient still has fever. Therefore we repeated the blood culture.and we going to start the patient on empiric antibiotics with ceftriaxone, IV vancomycin and acyclovir to cover gram-negative, MRSA and viral infection, till he will be evaluated by infectious disease team we're going to consult infectious disease team. Ordered repeat culture and gentle hydration and close monitoring Discussed with the bedside nurse 03/19/2022 Patient evaluated today resting in bed. Currently on 2L nasal cannula oxygen support. Found to be positive for COVID infection. For this reason valcyclovir and vancomycin have been discontinued. He continues on IV ceftriaxone empirically. Creatinine today 1.35. Lisinopril is being held. He is being gently hydrated. Patient continues with low grade fever. Venous doppler negative for DVT. Overall the patient states he feels pretty good today. He will require sub acute rehab on discharge. 03/20/2022 Patient evaluated today resting in bed. He is requiring between 2 and 3 L of oxygen today, with saturations around 95%. Lung sounds are more ronchorous today. He has been started on remdesivir. Infectious disease is following. Creatinine has normalized today 1.06. Plan for D/C to rehab once completion of remdesivir. 03/21/2022: I assumed care of patient for [facility]ist Laying in bed. Some cough and shortness of breath. On nasal cannula. Lab the patient sit up in a chair use incentive spirometry. Started on IV Remdesivir. Also on Decadron. Eating well. Tired. 03/22/2022: Sitting up in a chair. Eating well. On 3 L nasal cannula. Some cough. Tired. Getting Remdesivir and Decadron. 03/23/2022: Reclining in bed. Eating good. On Remdesivir and Decadron. Spoke to block and case maker looking for ECF placement for rehab. On 3 L nasal cannula. 03/24/2022: Up in bed. On room air. Stop Remdesivir and Decadron. Prednisone taper. Discharged to rehab today. Eating well. Discussed with nurse. Discussion and discharge planning more than 35 minutes On examination: VITAL SIGNS: At 7.8, 52, 17, 144/71, 94% room air GENERAL APPEARANCE: Sitting up in bed, looking much better PSYCHIATRY: Answering questions appropriately Rest of the exam per ID and nursing INVESTIGATIONS, reviewed in the clinical context: WBC 5.6 hemoglobin 13.8 platelets 202 progression 4 BUN 18 creatinine 1.06 pro-calcitonin 0.13 CRP 4.5 COVID 19 [PCR]: Detected Assessment and Plan -Recurrent falls at home, secondary to acute medical debility Fall precautions -Acute Covid 19 infection , causing pneumonitis IV Decadron, IV Remdesivir-both completed course -Acute hypoxic respiratory failure secondary to above : Improved Nasal cannula 3 L. Decadron. Now 94% on room air -Chronic elevation right hemidiaphragm -Hypothyroidism Synthroid -Hypertension Lopressor -Hyperlipidemia vytorin -Coronary artery disease prior PCI in 1999 Plavix, Lopressor - depression, Zoloft -Moderate cognitive impairment secondary to Alzheimer Dementia Namenda Disposition: [facility]/ECF Plan - Discharge Summary Discharge Rx Participant: Yes New Discharge Prescriptions: New Famotidine [Pepcid] 20 mg PO DAILY tab predniSONE 10 mg PO DAILY #30 tab Albuterol Inhaler [Ventolin Hfa Inhaler] 1 puff INHALATION RT-QID each Ascorbic Acid [Vitamin C] 500 mg PO DAILY tab Cholecalciferol [Vitamin D3 (25 Mcg = 1000 Iu)] 50 mcg PO DAILY tab Continue Sertraline [Zoloft] 50 mg PO DAILY Metoprolol Tartrate [Lopressor] 25 mg PO DAILY Isosorbide Mononitrate ER [Imdur] 30 mg PO DAILY Clopidogrel [Plavix] 75 mg PO DAILY Ezetimibe/Simvastatin [Vytorin 10-40 mg Tablet] 1 tab PO HS Memantine [Namenda] 5 mg PO BID Levothyroxine Sodium [Synthroid] 25 mcg PO DAILY No Action Quinapril HCl [Accupril] 5 mg PO DAILY Discharge Medication List Clopidogrel [Plavix] 75 mg PO DAILY 04/17/16 [History] Ezetimibe/Simvastatin [Vytorin 10-40 mg Tablet] 1 tab PO HS 04/17/16 [History] Isosorbide Mononitrate ER [Imdur] 30 mg PO DAILY 04/17/16 [History] Metoprolol Tartrate [Lopressor] 25 mg PO DAILY 04/17/16 [History] Quinapril HCl [Accupril] 5 mg PO DAILY 04/17/16 [History] Sertraline [Zoloft] 50 mg PO DAILY 04/17/16 [History] Levothyroxine Sodium [Synthroid] 25 mcg PO DAILY 03/16/22 [History] Memantine [Namenda] 5 mg PO BID 03/16/22 [History] Albuterol Inhaler [Ventolin Hfa Inhaler] 1 puff INHALATION RT-QID each 03/24/22 [Rx] Ascorbic Acid [Vitamin C] 500 mg PO DAILY tab 03/24/22 [Rx] Cholecalciferol [Vitamin D3 (25 Mcg = 1000 Iu)] 50 mcg PO DAILY tab 03/24/22 [Rx] Famotidine [Pepcid] 20 mg PO DAILY tab 03/24/22 [Rx] predniSONE 10 mg PO DAILY #30 tab 03/24/22 [Rx] Follow up Appointment(s)/Referral(s): Marlon Umana DO [Primary Care Provider] - 1-2 days Paul Asencio DO [Doctor of Osteopathic Medicine] - 03/29/22 Emil Minaya [NON-STAFF] - As Needed Patient Instructions/Handouts: COVID-19 (Coronavirus Disease 2019) (DC) Activity/Diet/Wound Care/Special Instructions: Patient is supposed to follow up with Dr. Asencio on March 29
--- NOTE | 2022-03-24 15:18 | P.PN ---
Subjective Progress Note Date: 03/24/22 Principal diagnosis: Covid 19 pneumonia Patient is a 76-year-old male presented to hospital as weakness and difficulty breathing any cough in this patient has been diagnosed with covid 19 pneumonia. On today's evaluation that is 03/24/2022, the patient remains to be afebrile , the patient is breathing comfortably on room air, the patient denies having any chest pain , the patient cough has decreased intensity and not bringing up any sputum, no abdominal pain or diarrhea Objective - Vital Signs Vital signs: Vital Signs Temp 97.8 F 03/24/22 10:00 Pulse 52 L 03/24/22 10:00 Resp 17 03/24/22 10:00 BP 144/71 03/24/22 10:00 Pulse Ox 94 L 03/24/22 10:00 FiO2 Intake & Output 03/23/22 03/24/22 03/24/22 18:59 06:59 18:59 Output Total 500 375 Balance -500 -375 Output: Urine 500 375 Other: Voiding Method External Catheter # Voids 5 # Bowel Movements 2 - Exam GENERAL DESCRIPTION: An elderly male lying in bed in no distress RESPIRATORY SYSTEM: Unlabored breathing , decreased breath sounds at bases HEART: S1 S2 regular rate and rhythm , ABDOMEN: Soft , no tenderness EXTREMITIES: No edema feet - Labs CBC & Chem 7: 03/20/22 07:18 03/20/22 07:18 Labs: Microbiology - Last 24 Hours (Table) 03/20/22 07:18 Blood Culture - Preliminary Blood No Growth after 96 hours 03/18/22 20:45 Blood Culture - Preliminary Blood No Growth after 120 hours 03/18/22 19:50 Blood Culture - Preliminary Blood No Growth after 120 hours Assessment and Plan (1) Pneumonia due to COVID-19 virus Status: Acute Code(s): U07.1 - COVID-19; J12.82 - PNEUMONIA DUE TO CORONAVIRUS DISEASE 2019 SNOMED Code(s): [id number] Plan: 1patient presented to hospital with weakness multiple falls he did have a low- grade fever patient did have mild infiltrate on chest x-ray and did have hypoxemia requiring supplemental oxygen likely secondary to acute COVID-19 infection patient symptom onset has been less than 7 days and with hypoxemia and need for supplemental oxygen will qualify for remdesivir as well as steroids. 2patient has shown clinical improvement , patient has completed 5 day course of remdesivir and no need for any antibiotics or antiviral on discharge Time with Patient: Less than 30
--- NOTE | 2022-03-27 07:39 | CDI ---
Documentation Clarification Form Date: 03/27/2022 07:25:00 AM From: Bri Chu Admit Date: 03/16/2022 10:22:00 PM Patient Name: Emile Cruz Visit Number: [id number] Discharge Date: 03/24/2022 02:47:00 PM ATTENTION: The Clinical Documentation Specialists (CDI) and [facility] Coding Staff appreciate your assistance in clarifying documentation. Please respond to the clarification below the line at the bottom and electronically sign. The CDI & [facility] Coding staff will review the response and follow-up if needed. Please note: Queries are made part of the Legal Health Record. If you have any questions, please contact the author of this message via ITS. Dr. Humberto Caro Patient was admitted 03/16 and tested positive for Covid on 03/19 and was treated with Remdesivir. For each diagnosis, documentation must be clear to determine if the condition was present at the time of the patients inpatient admission or developed during the hospital stay. Additional clarification regarding the status of Covid is requested. History/Risk Factors: repeated falls, hypoxic respiratory failure, altered mental status Clinical Indicators: Positive Covid test Treatment: Remdesivir, steroids, antibiotics Definition of Present on Admission (POA): A diagnosis present at the time the order for admission to inpatient status was written. Please clarify if the Covid (pneumonia) was POA [ ] Y = Yes, Covid was present at the time of the order for inpatient admission. [ ] N = No, Covid was not present at the time of the order for inpatient admission. [ ] W = Clinically undetermined if the condition was present at the time of the order for inpatient admission. send this query to ID on the case. FLORID
--- NOTE | 2022-04-04 09:50 | CDI ---
Documentation Clarification Form Date: 03/27/2022 07:25:00 AM From: Bri Chu Admit Date: 03/16/2022 10:22:00 PM Patient Name: Emile Cruz Visit Number: [id number] Discharge Date: 03/24/2022 02:47:00 PM ATTENTION: The Clinical Documentation Specialists (CDI) and [facility] Coding Staff appreciate your assistance in clarifying documentation. Please respond to the clarification below the line at the bottom and electronically sign. The CDI & [facility] Coding staff will review the response and follow-up if needed. Please note: Queries are made part of the Legal Health Record. If you have any questions, please contact the author of this message via ITS. Dr. Juan Kitchen Patient was admitted 03/16 and tested positive for Covid on 03/19 and was treated with Remdesivir. For each diagnosis, documentation must be clear to determine if the condition was present at the time of the patients inpatient admission or developed during the hospital stay. Additional clarification regarding the status of Covid is requested. Dr. Caro instructed me to send this query to you. History/Risk Factors: repeated falls, hypoxic respiratory failure, altered mental status Clinical Indicators: Positive Covid test Treatment: Remdesivir, steroids, antibiotics Definition of Present on Admission (POA): A diagnosis present at the time the order for admission to inpatient status was written. Please clarify if the Covid (pneumonia) was POA [ x] Y = Yes, Covid was present at the time of the order for inpatient admission. [ ] N = No, Covid was not present at the time of the order for inpatient admission. [ ] W = Clinically undetermined if the condition was present at the time of the order for inpatient admission. MTDD
== END 2022-03-24 14:47 | DRG 177 ==
LOC: EC 20:03 → 4SSUR 22:22
PROVIDERS: ADMIT Hospitalist; ATTEND Hospitalist
PROC: XW043E5 Introduction of Remdesivir Anti-infective into Central Vein, Percutaneous Approach, New Technology Group 5 (ICD-10-PCS; principal; 2022-03-20)
DX: U07.1 COVID-19 (principal); J12.82 Pneumonia due to coronavirus disease 2019; J69.0 Pneumonitis due to inhalation of food and vomit; J96.01 Acute respiratory failure with hypoxia; J98.11 Atelectasis; F02.83 Dementia in other diseases classified elsewhere, unspecified severity, with mood disturbance; R29.6 Repeated falls; I25.2 Old myocardial infarction; E03.9 Hypothyroidism, unspecified; E78.5 Hyperlipidemia, unspecified; E87.6 Hypokalemia; F32.A Depression, unspecified; R22.9 Localized swelling, mass and lump, unspecified; R53.81 Other malaise; R00.0 Tachycardia, unspecified; G30.9 Alzheimer's disease, unspecified; I10 Essential (primary) hypertension; I25.10 Atherosclerotic heart disease of native coronary artery without angina pectoris; Z79.02 Long term (current) use of antithrombotics/antiplatelets; Z79.890 Hormone replacement therapy; Z79.899 Other long term (current) drug therapy; Z85.828 Personal history of other malignant neoplasm of skin; Z98.61 Coronary angioplasty status; Z20.822 Contact with and (suspected) exposure to COVID-19; Z28.311 Partially vaccinated for COVID-19; Z88.0 Allergy status to penicillin
CPT/HCPCS: 36415; 70450; 71045; 80048; 80053; 81001; 83605; 83615; 83735; 84145; 85025; 85379; 85610; 85730; 86140; 87040; 87635; 87636; 93005; 93970; 94760; 96361; 96374; 99285

== ENCOUNTER 2023-05-20 13:57 | Observation (INO) | payer MEDICARE ==
[2023-05-20] MEDS ORDERED: ONDANSETRON 4 MG/2 ML VIAL IVP STA (14:12)
--- NOTE | 2023-05-20 14:19 | ED ---
General Adult HPI - General Chief complaint: Weakness Stated complaint: weakness Time Seen by Provider: 05/20/23 14:05 Source: patient, RN notes reviewed, old records reviewed Mode of arrival: EMS Limitations: altered mental status - History of Present Illness Initial comments: This is a 77-year-old male who is brought into the emergency department via EMS. EMS gave all the history. They state that the is been dealing with him getting weaker and slightly altered over the last month. Today he had diarrhea that was profuse according to EMS. Patient then vomited one time when they were on the gurney with EMS. Patient himself has no complaints but he is only alert and oriented 2. did not indicate any falls or fevers for this patient. At this time no one else with the patient give any further history. - Related Data Home Medications Medication Instructions Recorded Confirmed Clopidogrel [Plavix] 75 mg PO DAILY 04/17/16 03/16/22 Ezetimibe/Simvastatin [Vytorin 1 tab PO HS 04/17/16 03/16/22 10-40 mg Tablet] Isosorbide Mononitrate ER [Imdur] 30 mg PO DAILY 04/17/16 03/16/22 Metoprolol Tartrate [Lopressor] 25 mg PO DAILY 04/17/16 03/16/22 Quinapril HCl [Accupril] 5 mg PO DAILY 04/17/16 03/16/22 Sertraline [Zoloft] 50 mg PO DAILY 04/17/16 03/16/22 Levothyroxine Sodium [Synthroid] 25 mcg PO DAILY 03/16/22 03/16/22 Memantine [Namenda] 5 mg PO BID 03/16/22 03/16/22 Previous Rx's Medication Instructions Recorded Albuterol Inhaler [Ventolin Hfa 1 puff INHALATION RT-QID each 03/24/22 Inhaler] Ascorbic Acid [Vitamin C] 500 mg PO DAILY tab 03/24/22 Cholecalciferol [Vitamin D3 (25 50 mcg PO DAILY tab 03/24/22 Mcg = 1000 Iu)] Famotidine [Pepcid] 20 mg PO DAILY tab 03/24/22 predniSONE 10 mg PO DAILY #30 tab 03/24/22 Allergies Allergy/AdvReac Type Severity Reaction Status Date / Time Penicillins AdvReac Nausea & Verified 03/16/22 21:46 Vomiting Review of Systems ROS Statement: Those systems with pertinent positive or pertinent negative responses have been documented in the HPI. ROS Other: All systems not noted in ROS Statement are negative. 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, altimers Last Myocardial Infarction Date:: 10/1999 History of Any Multi-Drug Resistant Organisms: None Reported Past Surgical History: Heart Catheterization With Stent Additional Past Surgical History / Comment(s): 3 stents placed in 10/1999 Past Anesthesia/Blood Transfusion Reactions: No Reported Reaction Date of Last Stent Placement:: 10/1999 Past Psychological History: Depression Smoking Status: Never smoker Past Alcohol Use History: None Reported Past Drug Use History: None Reported General Exam - General Exam Comments Initial Comments: GENERAL: Patient is well-developed and well-nourished. Patient is nontoxic and well- hydrated and is in mild distress. ENT: Neck is soft and supple. No significant lymphadenopathy is noted. Oropharynx is clear. Moist mucous membranes. Neck has full range of motion without eliciting any pain. EYES: The sclera were anicteric and conjunctiva were pink and moist. Extraocular movements were intact and pupils were equal round and reactive to light. Eyelids were unremarkable. PULMONARY: Unlabored respirations. Good breath sounds bilaterally. No audible rales rhonchi or wheezing was noted. CARDIOVASCULAR: There is a regular rate and rhythm without any murmurs gallops or rubs. ABDOMEN: Soft and nontender with normal bowel sounds. SKIN: Skin is clear with no lesions or rashes and otherwise unremarkable. NEUROLOGIC: Patient is alert and oriented 2. Cranial nerves II through XII are grossly intact. Motor and sensory are also intact. Normal speech, volume and content. Symmetrical smile. MUSCULOSKELETAL: Normal extremities with adequate strength and full range of motion. No lower extremity swelling or edema. No calf tenderness. Patient has good dorsalis pedis pulses however he has 2 toes. Dusky in appearance the left foot and one on the right foot LYMPHATICS: No significant lymphadenopathy is noted PSYCHIATRIC: Unable to assess at this time Limitations: altered mental status Course Vital Signs 05/20/23 05/20/23 05/20/23 14:05 14:24 14:57 Temperature 98.9 F Pulse Rate 115 H 100 Respiratory 20 20 20 Rate Blood Pressure 152/95 152/95 O2 Sat by Pulse 91 L 96 Oximetry Medical Decision Making - Medical Decision Making Patient's EKG was interpreted by myself. EKG shows sinus tachycardia with occasional PVC. Patient's heart rate is 111 bpm FL interval 176 QRS is 130 QT interval is 294 QTC is 360. Patient's EKG shows a right bundle branch block Was pt. sent in by a medical professional or institution (, PA, SLATE WORKER, urgent care, hospital, or [place] [facility] [place] facility...) When possible be specific @ -No Did you speak to anyone other than the patient for history (EMS, parent, family, police, friend...)? What history was obtained from this source @ - gave is part of the history when she arrived Did you review nursing and triage notes (agree or disagree)? Why? @ -I reviewed and agree with nursing and triage notes Were old charts reviewed (outside hosp., previous admission, EMS record, old EKG, old radiological studies, urgent care reports/EKG's, [place] health [place] facility records)? Report findings @ -I reviewed prior charts and lab work on this patient Differential Diagnosis (chest pain, altered mental status, abdominal pain women, abdominal pain men, vaginal bleeding, weakness, fever, dyspnea, syncope, headache, dizziness, GI bleed, back pain, seizure, CVA, palpatations, mental health, musculoskeletal)? @ -Differential Altered Mental Status: Hypoglycemia, DKA, hypercapnia, ETOH, overdose, CO poisoning, trauma, myxedema coma, HTN encephalopathy, infection, encephalitis, psychosis, intercranial hemorrhage, hepatic encephalopathy, meningitis, CVA, this is not meant to be an all-inclusive list EKG interpreted by me (3pts min.). @ -As above X-rays interpreted by me (1pt min.). @ -Chest x-ray shows some atelectasis CT interpreted by me (1pt min.). @ -CT of the brain shows no acute abnormality U/S interpreted by me (1pt. min.). @ -None done What testing was considered but not performed or refused? (CT, X-rays, U/S, labs)? Why? @ -None What meds were considered but not given or refused? Why? @ -None Did you discuss the management of the patient with other professionals (professionals i.e. , PA, SLATE WORKER, lab, RT, psych nurse, case management social worker, fur repair inspector, teacher, lead security officer, case picker)? Give summary @ -Spoke with Dr. Caro and he agreed to admit the patient Was smoking cessation discussed for >3mins.? @ -No Was critical care preformed (if so, how long)? @ -No Were there social determinants of health that impacted care today? How? (Homelessness, low income, unemployed, alcoholism, drug addiction, transpor tation, low edu. Level, literacy, decrease access to med. care, fpc, rehab)? @ -No Was there de-escalation of care discussed even if they declined (Discuss DNR or withdrawal of care, Hospice)? DNR status @ -No What co-morbidities impacted this encounter? (DM, HTN, Smoking, COPD, CAD, Cancer, CVA, ARF, Chemo, Hep., AIDS, mental health diagnosis, sleep apnea, morbid obesity)? @ -None Was patient admitted / discharged? Hospital course, mention meds given and route, prescriptions, significant lab abnormalities, going to OR and other pertinent info. @ -Patient was given Zofran for his vomiting and Lomotil for the diarrhea. Patient was also given IV fluids and blood pressure medications. Patient remained asymptomatic according to him however he was too weak to get up on his own and he was still altered according to his that was now in the room Undiagnosed new problem with uncertain prognosis? @ -No Drug Therapy requiring intensive monitoring for toxicity (Heparin, Nitro, Insulin, Cardizem)? @ -No Were any procedures done? @ -No Diagnosis/symptom? @ -Gastroenteritis Acute, or Chronic, or Acute on Chronic? @ -Acute Uncomplicated (without systemic symptoms) or Complicated (systemic symptoms)? @ -Complicated Side effects of treatment? @ -No Exacerbation, Progression, or Severe Exacerbation? @ -No Poses a threat to life or bodily function? How? (Chest pain, [place], [place], pneumonia, PE, COPD, DKA, ARF, appy, cholecystitis, CVA, Diverticulitis, Homicidal, Suicidal, threat to staff... and all critical care pts) @ -No Diagnosis/symptom? @ -Generalized weakness Acute, or Chronic, or Acute on Chronic? @ -Acute Uncomplicated (without systemic symptoms) or Complicated (systemic symptoms)? @ -Complicated Side effects of treatment? @ -none Exacerbation, Progression, or Severe Exacerbation] @ -no Poses a threat to life or bodily function? @ -no Diagnosis/symptom? @ -Altered mental status Acute, or Chronic, or Acute on Chronic? @ -Acute Uncomplicated (without systemic symptoms) or Complicated (systemic symptoms)? @ -Complicated Side effects of treatment? @ -none Exacerbation, Progression, or Severe Exacerbation] @ -no Poses a threat to life or bodily function? @ -no - Lab Data Result diagrams: 05/20/23 14:11 05/20/23 14:11 Lab Results 05/20/23 05/20/23 05/20/23 Range/Units 14:11 14:11 14:11 WBC 14.9 H (3.8-10.6) k/uL RBC 5.39 (4.30-5.90) m/uL Hgb 16.1 (13.0-17.5) gm/dL Hct 49.9 (39.0-53.0) % MCV 92.6 (80.0-100.0) fL MCH 29.8 (25.0-35.0) pg MCHC 32.2 (31.0-37.0) g/dL RDW 14.0 (11.5-15.5) % Plt Count 273 (150-450) k/uL MPV 7.2 Neutrophils % 95 % Lymphocytes % 1 % Monocytes % 3 % Eosinophils % 1 % Basophils % 0 % Neutrophils # 14.1 H (1.3-7.7) k/uL Lymphocytes # 0.2 L (1.0-4.8) k/uL Monocytes # 0.4 (0-1.0) k/uL Eosinophils # 0.1 (0-0.7) k/uL Basophils # 0.0 (0-0.2) k/uL PT 10.7 (10.0-12.5) sec INR 1.0 (<1.2) APTT 23.3 (22.0-30.0) sec Sodium 142 (137-145) mmol/L Potassium 4.3 (3.5-5.1) mmol/L Chloride 106 (98-107) mmol/L Carbon Dioxide 24 (22-30) mmol/L Anion Gap 12 mmol/L BUN 20 (9-20) mg/dL Creatinine 1.04 (0.66-1.25) mg/dL Est GFR (CKD-EPI)AfAm 80 (>60 ml/min/1.73 sqM) Est GFR (CKD-EPI)NonAf 69 (>60 ml/min/1.73 sqM) Glucose 131 H (74-99) mg/dL Plasma Lactic Acid Eddie (0.7-2.0) mmol/L Calcium 9.0 (8.4-10.2) mg/dL Magnesium 1.8 (1.6-2.3) mg/dL Total Bilirubin 0.8 (0.2-1.3) mg/dL AST 30 (17-59) U/L ALT 19 (4-49) U/L Alkaline Phosphatase 102 (38-126) U/L Troponin I (0.000-0.034) ng/mL NT-Pro-B Natriuret Pep 954 pg/mL Total Protein 7.0 (6.3-8.2) g/dL Albumin 4.0 (3.5-5.0) g/dL Urine Color Urine Appearance (Clear) Urine pH (5.0-8.0) Ur Specific [place] (1.001-1.035) Urine Protein (Negative) Urine Glucose (UA) (Negative) Urine Ketones (Negative) Urine Blood (Negative) Urine Nitrite (Negative) Urine Bilirubin (Negative) Urine Urobilinogen (<2.0) mg/dL Ur Leukocyte Esterase (Negative) Urine RBC (0-5) /hpf Urine WBC (0-5) /hpf Ur Squamous Epith Cells (0-4) /hpf Calcium Oxalate Crystal (None) /hpf Urine Mucus (None) /hpf 05/20/23 05/20/23 05/20/23 Range/Units 14:11 14:11 14:19 WBC (3.8-10.6) k/uL RBC (4.30-5.90) m/uL Hgb (13.0-17.5) gm/dL Hct (39.0-53.0) % MCV (80.0-100.0) fL MCH (25.0-35.0) pg MCHC (31.0-37.0) g/dL RDW (11.5-15.5) % Plt Count (150-450) k/uL MPV Neutrophils % % Lymphocytes % % Monocytes % % Eosinophils % % Basophils % % Neutrophils # (1.3-7.7) k/uL Lymphocytes # (1.0-4.8) k/uL Monocytes # (0-1.0) k/uL Eosinophils # (0-0.7) k/uL Basophils # (0-0.2) k/uL PT (10.0-12.5) sec INR (<1.2) APTT (22.0-30.0) sec Sodium (137-145) mmol/L Potassium (3.5-5.1) mmol/L Chloride (98-107) mmol/L Carbon Dioxide (22-30) mmol/L Anion Gap mmol/L BUN (9-20) mg/dL Creatinine (0.66-1.25) mg/dL Est GFR (CKD-EPI)AfAm (>60 ml/min/1.73 sqM) Est GFR (CKD-EPI)NonAf (>60 ml/min/1.73 sqM) Glucose (74-99) mg/dL Plasma Lactic Acid Eddie 2.6 H* (0.7-2.0) mmol/L Calcium (8.4-10.2) mg/dL Magnesium (1.6-2.3) mg/dL Total Bilirubin (0.2-1.3) mg/dL AST (17-59) U/L ALT (4-49) U/L Alkaline Phosphatase (38-126) U/L Troponin I 0.012 (0.000-0.034) ng/mL NT-Pro-B Natriuret Pep pg/mL Total Protein (6.3-8.2) g/dL Albumin (3.5-5.0) g/dL Urine Color Yellow Urine Appearance Clear (Clear) Urine pH 5.5 (5.0-8.0) Ur Specific [place] 1.020 (1.001-1.035) Urine Protein Trace H (Negative) Urine Glucose (UA) Negative (Negative) Urine Ketones Negative (Negative) Urine Blood Small H (Negative) Urine Nitrite Negative (Negative) Urine Bilirubin Negative (Negative) Urine Urobilinogen <2.0 (<2.0) mg/dL Ur Leukocyte Esterase Negative (Negative) Urine RBC 22 H (0-5) /hpf Urine WBC 1 (0-5) /hpf Ur Squamous Epith Cells <1 (0-4) /hpf Calcium Oxalate Crystal Few H (None) /hpf Urine Mucus Occasional H (None) /hpf Disposition Clinical Impression: Altered mental status, Gastroenteritis, Hypertensive urgency, Generalized weakness Disposition: ADMITTED IP TO THIS HOSP Referrals: None,Stated [Primary Care Provider] - 1-2 days Time of Disposition: 15:47
[2023-05-20 14:37] LABS: Basophils % (A) 0 %; Eosinophils # (A) 0.1 k/uL (0-0.7); Eosinophils % (A) 1 %; HCT 49.9 % (39.0-53.0); HGB 16.1 gm/dL (13.0-17.5); Lymphocytes # (A) 0.2 k/uL (1.0-4.8); Lymphocytes % (A) 1 %; MCH 29.8 pg (25.0-35.0); MCHC 32.2 g/dL (31.0-37.0); MCV 92.6 fL (80.0-100.0); Mean Platelet Volume 7.2; Monocytes # (A) 0.4 k/uL (0-1.0); Monocytes % (A) 3 %; Neutrophils # (A) 14.1 k/uL (1.3-7.7); Neutrophils % (A) 95 %; Platelet Count 273 k/uL (150-450); RBC 5.39 m/uL (4.30-5.90); WBC 14.9 k/uL (3.8-10.6)
[2023-05-20 14:45] LABS: Partial Thromboplastin Time 23.3 sec (22.0-30.0); Prothrombin Time 10.7 sec (10.0-12.5)
[2023-05-20 15:00] LABS: ALT 19 U/L (4-49); AST 30 U/L (17-59); African American GFR (CKD) 80 (>60 ml/min/1.73 sqM); Alkaline Phosphatase 102 U/L (38-126); Anion Gap 12 mmol/L; Blood Urea Nitrogen 20 mg/dL (9-20); Carbon Dioxide 24 mmol/L (22-30); Chloride 106 mmol/L (98-107); Glucose 131 mg/dL (74-99); Magnesium 1.8 mg/dL (1.6-2.3); Non-African American GFR(CKD) 69 (>60 ml/min/1.73 sqM); Potassium 4.3 mmol/L (3.5-5.1); Sodium 142 mmol/L (137-145); Total Bilirubin 0.8 mg/dL (0.2-1.3)
[2023-05-20 15:03] LABS: Appearance,Urine Clear (Clear); Bilirubin,Urine Negative (Negative); Blood,Urine Small (Negative); Calcium Oxalate Crystals,Urine Few /hpf; Color,Urine Yellow; Glucose,Urine (UA) Negative (Negative); Ketones,Urine Negative (Negative); Leukocyte Esterase,Urine Negative (Negative); Mucus,Urine Occasional /hpf; Nitrite,Urine Negative (Negative); PH, Urine 5.5 (5.0-8.0); Protein,Urine Trace (Negative); RBC,Urine 22 /hpf (0-5); Squamous Epithelial Cell,Urine <1 /hpf (0-4); Urobilinogen,Urine <2.0 mg/dL (<2.0); WBC,Urine 1 /hpf (0-5)
[2023-05-20 15:08] LABS: NT-Pro-B-Type Natriuretic Pept 954 pg/mL
--- NOTE | 2023-05-20 15:34 | CT ---
EXAMINATION TYPE: CT brain wo con DATE OF EXAM: 05/20/2023 COMPARISON: 03/18/2022 HISTORY: 77-year-old male weakness, ams TECHNIQUE: Examination was done in axial plane without intravenous contrast. Coronal and sagittal r econstructions performed. CT DLP: 1183.5 mGycm Automated exposure control for dose reduction was used. FINDINGS: There is no evidence of acute intracranial hemorrhage, acute ischemic changes, mass, mass-effect, or extra-axial fluid collection. There is no effacement of cerebral sulci or basal subarachnoid cister ns. There is no midline shift. Balderas-white matter distinction is preserved. Extensive atherosclerotic calcifications within the carotid siphons. Similar ventriculomegaly, Niles's ratio calculated at 0.34, similar to prior exam. Moderate patchy per iventricular white matter hypodensities. Similar mild volume loss overlying the bilateral cerebral co nvexities. Leftward nasal septal deviation. Trace mucosal thickening ethmoid air cells. Mastoid air cells well p neumatized. Orbits and globes are intact. IMPRESSION: 1. Similar mild to moderate hydrocephalus which may in part relate to central cerebral atrophy. Corre late to exclude a component of NPH. 2. Moderate burden of chronic small vessel ischemic disease. 3. Otherwise, no acute intracranial abnormality seen.
--- NOTE | 2023-05-20 15:35 | XR ---
EXAMINATION TYPE: XR chest 2V DATE OF EXAM: 05/20/2023 COMPARISON: 03/18/2022 HISTORY: 77-year-old male with weakness TECHNIQUE: AP and lateral views FINDINGS: Very low lung volumes limiting assessment of the lung bases. Crowded vascular markings or mild inters titial prominence. No michelle consolidation or pleural effusion seen. IMPRESSION: Portable exam further limited by marked hypoventilatory changes. Some patchy bibasilar opacities like ly areas of atelectasis.
[2023-05-20] MEDS ORDERED: SODIUM CHLORIDE 0.9% 1,000 ML IV ONE (15:47)
[2023-05-20] MEDS ORDERED: DIPHENOX-ATROP 2.5-0.025 MG 1 EACH TAB PO PRN (15:48)
[2023-05-20] MEDS: ONDANSETRON 4 MG/2 ML VIAL IVP PRN (19:57)
[2023-05-21] MEDS: lisinopriL 5 MG TAB PO SCH (09:26)
[2023-05-21] MEDS: ISOSORBIDE MONONITRATE ER 30 MG TAB.ER.24H PO SCH (11:14)
[2023-05-21] MEDS: CLOPIDOGREL 75 MG TAB PO SCH (11:14)
[2023-05-21] MEDS: METOPROLOL TARTRATE 25 MG TAB PO SCH ×2 (11:14→20:39)
[2023-05-21] MEDS: ENOXAPARIN 40 MG/0.4 ML SYRINGE SQ SCH (11:14)
[2023-05-21] MEDS: LEVOTHYROXINE 75 MCG TAB PO SCH (11:14)
[2023-05-21] MEDS: FAMOTIDINE 20 MG TAB PO SCH (11:14)
--- NOTE | 2023-05-21 19:39 | P.HPIM ---
History of Present Illness H&P Date: 05/21/23 Chief Complaint: Weakness and falls This is a pleasant 77 years old male with multiple medical problems , follows with Dr. Umana. Because of dementia and history is mainly obtained by the at the bedside. 2 days ago patient was significantly constipated. gave him a laxative. Patient started having stools all over. Including EMS noted the stool right from the bed to the bathroom. Also patient become increasingly weak. Has had 2 falls. Increase leak tired. Increasingly forgetful. Appetite is fair. Patient can answer simple questions. is finding it difficult to take care of him. No fever no chills. Denies any obvious pain. Does have a walker. Review of systems: GEN.: Tired EYES: None HEENT: None NECK: None RESPIRATORY: None CARDIOVASCULAR: None GASTROINTESTINAL: None GENITOURINARY: None MUSCULOSKELETAL: None LYMPHATICS: None HEMATOLOGICAL: None PSYCHIATRY: Forgetful NEUROLOGICAL: Uses a walker Past medical history to include: COPD, dementia, hypertension, hyperlipidemia, hypothyroid, skin cancer left ear, CAD with stent, depression Social history: Nonsmoker. . Lives with . Physical examination: VITAL SIGNS: 98.9, 115, 20, 152/95, 91% room air GENERAL: Average built, sitting up, comfortable. EYES: Pupils equal. Conjunctiva normal. HEENT: External appearance of nose and ears normal, oral cavity grossly normal. NECK: JVD not raised; masses not palpable. HEART: First and second heart sounds are normal; no edema. LUNGS: Respiratory rate normal; clear to auscultation. ABDOMEN: Soft, nontender, liver spleen not palpable, no masses palpable. PSYCH: [Patient able to state his name, knows he is at the hospital. Could not tell the year l. MUSCULOSKELETAL:No Clubbing/cyanosis;muscles-grossly intact NEUROLOGICAL: Cranial nerves grossly intact; no facial asymmetry, power and sensation grossly intact. LYMPHATICS: No lymph nodes palpable in the axilla and neck INVESTIGATIONS, reviewed in the clinical context: 05/20/2023: White count 14.9 hemoglobin 16.1 platelets 273 sodium 142 potassium 4.3 BUN 20 creatinine 1.04 lactic acid 2.6 EKG tracing personally reviewed by me-sinus tachycardia 9Chest x-ray film personally reviewed by me-portable. Poor inspiration. Not a good view Assessment and Plan -Recurrent falls at home in a patient with a baseline uses a walker. Was given laxative with multiple bowel movements possibly related to dehydration resulting in falls. PT OT -Chronic gait dysfunction baseline uses a walker -Chronic elevation right hemidiaphragm -Hypothyroidism Synthroid -Lactic acidosis type II. No evidence of infection. Secondary to dehydration. From diarrhea. 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 PTOT. We'll see patient candidate for rehab. 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, [place] Last Myocardial Infarction Date:: 10/1999 History of Any Multi-Drug Resistant Organisms: None Reported Past Surgical History: Heart Catheterization With Stent Additional Past Surgical History / Comment(s): 3 stents placed in 10/1999 Past Anesthesia/Blood Transfusion Reactions: No Reported Reaction Date of Last Stent Placement:: 10/1999 Past Psychological History: Depression Smoking Status: Never smoker Past Alcohol Use History: None Reported Past Drug Use History: None Reported - Past Family History Father History Unknown: Yes Medications and Allergies Home Medications Medication Instructions Recorded Confirmed Type Clopidogrel [Plavix] 75 mg PO DAILY 04/17/16 05/20/23 History Ezetimibe/Simvastatin [Vytorin 1 tab PO HS 04/17/16 05/20/23 History 10-40 mg Tablet] Isosorbide Mononitrate ER [Imdur] 30 mg PO DAILY 04/17/16 05/20/23 History Metoprolol Tartrate [Lopressor] 50 mg PO DAILY 04/17/16 05/20/23 History Sertraline [Zoloft] 100 mg PO HS 04/17/16 05/20/23 History Memantine [Namenda] 5 mg PO BID 03/16/22 05/20/23 History Cholecalciferol [Vitamin D3 (25 50 mcg PO DAILY tab 03/24/22 05/20/23 Rx Mcg = 1000 Iu)] Famotidine [Pepcid] 20 mg PO DAILY tab 03/24/22 05/20/23 Rx Cyanocobalamin (Vitamin B-12) 1,000 mcg PO HS 05/20/23 05/20/23 History [Vitamin B-12] Levothyroxine Sodium [Synthroid] 75 mcg PO DAILY 05/20/23 05/20/23 History lisinopriL [Zestril] 5 mg PO DAILY 05/20/23 05/20/23 History Allergies Allergy/AdvReac Type Severity Reaction Status Date / Time Penicillins AdvReac Nausea & Verified 05/20/23 15:50 Vomiting Physical Exam Vitals: Vital Signs Temp Pulse Pulse Resp BP BP Pulse Ox 05/21/23 08:00 98.7 F 69 16 138/70 96 05/21/23 06:11 97.9 F 70 19 121/64 96 05/21/23 03:30 89 15 121/69 100 05/21/23 02:30 82 17 129/73 100 05/21/23 01:30 79 17 126/72 05/21/23 00:30 78 19 122/72 95 05/20/23 23:30 98 22 117/78 95 05/20/23 22:42 90 16 127/73 96 05/20/23 22:30 88 22 115/89 96 05/20/23 22:00 91 20 120/67 95 05/20/23 21:30 105 H 17 125/78 95 05/20/23 21:00 96 16 131/76 95 05/20/23 20:30 92 19 156/95 95 05/20/23 20:01 97 19 156/95 95 05/20/23 18:00 75 20 130/60 98 05/20/23 16:08 102 H 20 134/75 95 05/20/23 14:57 20 05/20/23 14:24 100 20 152/95 96 05/20/23 14:05 98.9 F 115 H 20 152/95 91 L Intake and Output 05/20/23 05/21/23 05/21/23 22:59 06:59 14:59 Other: Weight 102.058 kg Results CBC & Chem 7: 05/20/23 14:11 05/20/23 14:11 Labs: Abnormal Lab Results - Last 24 Hours (Table) 12/25/23 12/25/23 12/25/23 Range/Units 14:11 14:11 14:11 WBC 14.9 H (3.8-10.6) k/uL Neutrophils # 14.1 H (1.3-7.7) k/uL Lymphocytes # 0.2 L (1.0-4.8) k/uL Glucose 131 H (74-99) mg/dL Plasma Lactic Acid Eddie 2.6 H* (0.7-2.0) mmol/L Urine Protein (Negative) Urine Blood (Negative) Urine RBC (0-5) /hpf Calcium Oxalate Crystal (None) /hpf Urine Mucus (None) /hpf 05/20/23 Range/Units 14:19 WBC (3.8-10.6) k/uL Neutrophils # (1.3-7.7) k/uL Lymphocytes # (1.0-4.8) k/uL Glucose (74-99) mg/dL Plasma Lactic Acid Eddie (0.7-2.0) mmol/L Urine Protein Trace H (Negative) Urine Blood Small H (Negative) Urine RBC 22 H (0-5) /hpf Calcium Oxalate Crystal Few H (None) /hpf Urine Mucus Occasional H (None) /hpf Thrombosis Risk Factor Assmnt - Choose All That Apply Any of the Below Risk Factors Present?: Yes Each Factor Represents 1 point: Acute SD Other Risk Factors: Yes Each Risk Factor Represents 3 Points: Age 75 years or older Thrombosis Risk Factor Assessment Total Risk Factor Score: 4 Thrombosis Risk Factor Assessment Level: Moderate Risk
[2023-05-21] MEDS: MEMANTINE 5 MG TAB PO SCH (20:42)
[2023-05-21] MEDS ORDERED: ATORVASTATIN 20 MG TAB PO SCH (21:00)
[2023-05-21] MEDS ORDERED: EZETIMIBE 10 MG TAB PO SCH (21:00)
[2023-05-21] MEDS ORDERED: SERTRALINE 100 MG TAB PO SCH (21:00)
[2023-05-21] MEDS ORDERED: CYANOCOBALAMIN 500 MCG TAB PO SCH (21:00)
[2023-05-22] MEDS: LEVOTHYROXINE 75 MCG TAB PO SCH (05:55)
[2023-05-22] MEDS: ONDANSETRON 4 MG/2 ML VIAL IVP PRN (08:25)
[2023-05-22] MEDS: METOPROLOL TARTRATE 25 MG TAB PO SCH (08:27)
[2023-05-22] MEDS: CLOPIDOGREL 75 MG TAB PO SCH (08:27)
[2023-05-22] MEDS: lisinopriL 5 MG TAB PO SCH (08:27)
[2023-05-22] MEDS: MEMANTINE 5 MG TAB PO SCH (08:27)
[2023-05-22] MEDS: ENOXAPARIN 40 MG/0.4 ML SYRINGE SQ SCH (08:27)
[2023-05-22] MEDS: ISOSORBIDE MONONITRATE ER 30 MG TAB.ER.24H PO SCH (08:27)
[2023-05-22] MEDS: FAMOTIDINE 20 MG TAB PO SCH (08:27)
--- NOTE | 2023-05-22 14:21 | P.DS ---
Providers Date of admission: 05/20/23 15:48 Expected date of discharge: 05/22/23 Attending physician: Humberto Caro Primary care physician: Marlon Umana [facility] Course: Chief Complaint: Weakness and falls This is a pleasant 77 years old male with multiple medical problems , follows with Dr. Umana. Because of dementia and history is mainly obtained by the at the bedside. 2 days ago patient was significantly constipated. gave him a laxative. Patient started having stools all over. Including EMS noted the stool right from the bed to the bathroom. Also patient become increasingly weak. Has had 2 falls. Increase leak tired. Increasingly forgetful. Appetite is fair. Patient can answer simple questions. is finding it difficult to take care of him. No fever no chills. Denies any obvious pain. Does have a walker. 05/22/2023: Patient eating about 50% of his meals. Spoke to liaalberto Izaguirre from [facility]. Authorization is been accepted. Earlier spoke to the social worker clinical. Discharged for rehab. Discussion and discharge planning more than 35 minutes Past medical history to include: COPD, dementia, hypertension, hyperlipidemia, hypothyroid, skin cancer left ear, CAD with stent, depression Social history: Nonsmoker. . Lives with . Physical examination: VITAL SIGNS: 98, 70, 21, 153/88, 95% on 3 L GENERAL: BMI 38.6, laying in bed comfortable. EYES: Pupils equal. Conjunctiva normal. HEENT: External appearance of nose and ears normal, oral cavity grossly normal. NECK: JVD not raised; masses not palpable. HEART: First and second heart sounds are normal; no edema. LUNGS: Respiratory rate normal; clear to auscultation. ABDOMEN: Soft, nontender, liver spleen not palpable, no masses palpable. PSYCH: [Patient able to state his name, knows he is at the hospital. Could not tell the year l. MUSCULOSKELETAL:No Clubbing/cyanosis;muscles-grossly intact NEUROLOGICAL: Cranial nerves grossly intact; no facial asymmetry, power and sensation grossly intact. INVESTIGATIONS, reviewed in the clinical context: 05/20/2023: White count 14.9 hemoglobin 16.1 platelets 273 sodium 142 potassium 4.3 BUN 20 creatinine 1.04 lactic acid 2.6-repeat 1.5 EKG tracing personally reviewed by nv-sinus tachycardia 9Chest x-ray film personally reviewed by -portable. Poor inspiration. Not a good view Assessment and Plan -Recurrent falls at home in a patient with a baseline uses a walker. Was given laxative with multiple bowel movements possibly related to dehydration resulting in falls.: Acute medical debility PT OT -Chronic gait dysfunction baseline uses a walker -Chronic elevation right hemidiaphragm -Hypothyroidism Synthroid -Lactic acidosis type II. No evidence of infection. Secondary to dehydration. From diarrhea. Secondary to laxative: Resolved -Hypertension Lopressor -Hyperlipidemia vytorin -Coronary artery disease prior PCI in 1999 Plavix, Lopressor - depression, Zoloft -Severe cognitive impairment secondary to Alzheimer Dementia: Progressive Namenda Disposition: Rehab at [facility] Past Medical History Past Medical History: Coronary Artery Disease (CAD), Cancer, Dementia, Hyperlipidemia, Hypertension, Memory Impairment, Myocardial Infarction ([place]), Pneumonia, Thyroid Disorder Additional Past Medical History / Comment(s): Skin cancer on Left ear, [place] Last Myocardial Infarction Date:: 10/1999 History of Any Multi-Drug Resistant Organisms: None Reported Past Surgical History: Heart Catheterization With Stent Additional Past Surgical History / Comment(s): 3 stents placed in 10/1999 Past Anesthesia/Blood Transfusion Reactions: No Reported Reaction Date of Last Stent Placement:: 10/1999 Past Psychological History: Depression Smoking Status: Never smoker Past Alcohol Use History: None Reported Past Drug Use History: None Reported - Past Family History Father History Unknown: Yes Plan - Discharge Summary Discharge Rx Participant: Yes New Discharge Prescriptions: New Ezetimibe [Zetia] 10 mg PO HS tab Continue Sertraline [Zoloft] 100 mg PO HS Isosorbide Mononitrate ER [Imdur] 30 mg PO DAILY Clopidogrel [Plavix] 75 mg PO DAILY Ezetimibe/Simvastatin [Vytorin 10-40 mg Tablet] 1 tab PO HS Memantine [Namenda] 5 mg PO BID Famotidine [Pepcid] 20 mg PO DAILY tab Levothyroxine Sodium [Synthroid] 75 mcg PO DAILY Cyanocobalamin (Vitamin B-12) [Vitamin B-12] 1,000 mcg PO HS Cholecalciferol [Vitamin D3 (25 Mcg = 1000 Iu)] 50 mcg PO DAILY tab lisinopriL [Zestril] 5 mg PO DAILY Changed Metoprolol Tartrate [Lopressor] 25 mg PO BID #0 Discharge Medication List Clopidogrel [Plavix] 75 mg PO DAILY 04/17/16 [History] Ezetimibe/Simvastatin [Vytorin 10-40 mg Tablet] 1 tab PO HS 04/17/16 [History] Isosorbide Mononitrate ER [Imdur] 30 mg PO DAILY 04/17/16 [History] Sertraline [Zoloft] 100 mg PO HS 04/17/16 [History] Memantine [Namenda] 5 mg PO BID 03/16/22 [History] Cholecalciferol [Vitamin D3 (25 Mcg = 1000 Iu)] 50 mcg PO DAILY tab 03/24/22 [Rx] Famotidine [Pepcid] 20 mg PO DAILY tab 03/24/22 [Rx] Cyanocobalamin (Vitamin B-12) [Vitamin B-12] 1,000 mcg PO HS 05/20/23 [History] Levothyroxine Sodium [Synthroid] 75 mcg PO DAILY 05/20/23 [History] lisinopriL [Zestril] 5 mg PO DAILY 05/20/23 [History] Ezetimibe [Zetia] 10 mg PO HS tab 05/22/23 [Rx] Metoprolol Tartrate [Lopressor] 25 mg PO BID #0 05/22/23 [Rx] Follow up Appointment(s)/Referral(s): Marlon Umana DO [Primary Care Provider] - 1 Week
[2023-05-22 15:33] VITALS: BP 116/68; PULSE 57; RESP 20; TEMP 97.4
== END 2023-05-22 15:38 ==
LOC: EC 13:57 → 4SSUR 15:48 → INTOOBSV 15:48 → 4SSUR 20:05 → UNDODISIN 05-22 15:38
PROVIDERS: ADMIT Hospitalist; ATTEND Hospitalist
DX: K52.9 Noninfective gastroenteritis and colitis, unspecified (principal); J98.11 Atelectasis; I16.0 Hypertensive urgency; E87.20 Acidosis, unspecified; E86.0 Dehydration; G30.9 Alzheimer's disease, unspecified; F02.C0 Dementia in other diseases classified elsewhere, severe, without behavioral disturbance, psychotic disturbance, mood disturbance, and anxiety; I10 Essential (primary) hypertension; I45.10 Unspecified right bundle-branch block; I25.10 Atherosclerotic heart disease of native coronary artery without angina pectoris; J98.6 Disorders of diaphragm; R29.6 Repeated falls; Z91.81 History of falling; R26.9 Unspecified abnormalities of gait and mobility; R53.1 Weakness; E03.9 Hypothyroidism, unspecified; E78.5 Hyperlipidemia, unspecified; F32.A Depression, unspecified; I25.2 Old myocardial infarction; R00.0 Tachycardia, unspecified; Z79.02 Long term (current) use of antithrombotics/antiplatelets; Z79.890 Hormone replacement therapy; Z79.899 Other long term (current) drug therapy; Z88.0 Allergy status to penicillin; Z95.5 Presence of coronary angioplasty implant and graft; Z85.828 Personal history of other malignant neoplasm of skin; Z87.01 Personal history of pneumonia (recurrent)
CPT/HCPCS: 96376 ×2; 96361 ×2; 96372 ×2; 96374; 99285; 36415; 93005; 97116; 97162; 97166; 83880; 80053; 83605; 83735; 84484; 85025; 85610; 85730; 81001; 71046; 70450; G0378 ×3; J2405 ×2; J1650 ×2

== ENCOUNTER 2023-06-14 13:59 | Inpatient (IN) | payer MEDICARE ==
--- NOTE | 2023-06-14 14:21 | ED ---
Syncope HPI - General Stated Complaint: poss STEMI Time Seen by Provider: 06/14/23 14:20 Source: RN notes reviewed, old records reviewed Limitations: no limitations - History of Present Illness Initial Comments: This is a 77-year-old male to the ER today. Patient presents today for evaluation regards to weakness altered mental status not acting appropriately was sent in for evaluation regards to abnormal EKG. Patient did also pass out today but he is denying any personal complaints and not participating history of present illness. Patient is a DO NOT RESUSCITATE no code patient MD Complaint: loss of consciousness, collapsed -: days(s) Prodromal Symptoms: none Witnessed: yes - by bystander Current Symptoms: lightheaded History: previous syncopal episode Context: recent illness Treatments Prior to Arrival: none - Related Data Home Medications Medication Instructions Recorded Confirmed Clopidogrel [Plavix] 75 mg PO DAILY 04/17/16 06/14/23 Ezetimibe/Simvastatin [Vytorin 1 tab PO HS 04/17/16 06/14/23 10-40 mg Tablet] Isosorbide Mononitrate ER [Imdur] 30 mg PO DAILY 04/17/16 06/14/23 Sertraline [Zoloft] 100 mg PO HS 04/17/16 06/14/23 Memantine [Namenda] 5 mg PO BID 03/16/22 06/14/23 Cyanocobalamin (Vitamin B-12) 1,000 mcg PO DAILY 05/20/23 06/14/23 [Vitamin B-12] Levothyroxine Sodium [Synthroid] 75 mcg PO DAILY 05/20/23 06/14/23 Acetaminophen [Tylenol 8 Hour] 650 mg PO Q6H PRN 06/14/23 06/14/23 Magnesium Hydroxide [Milk of 2,400 mg PO Q72H PRN 06/14/23 06/14/23 Magnesia] Metoprolol Tartrate [Lopressor] 25 mg PO BID 06/14/23 06/14/23 Previous Rx's Medication Instructions Recorded Cholecalciferol [Vitamin D3 (25 50 mcg PO DAILY tab 03/24/22 Mcg = 1000 Iu)] Famotidine [Pepcid] 20 mg PO DAILY tab 03/24/22 Cefuroxime [Ceftin] 250 mg PO BID #10 tab 06/17/23 Allergies Allergy/AdvReac Type Severity Reaction Status Date / Time Penicillins AdvReac Nausea & Verified 06/14/23 16:05 Vomiting Review of Systems ROS Statement: Those systems with pertinent positive or pertinent negative responses have been documented in the HPI. ROS Other: All systems not noted in ROS Statement are negative. Past Medical History Past Medical History: Coronary Artery Disease (CAD), Cancer, Dementia, Hyperlipidemia, Hypertension, Memory Impairment, Myocardial Infarction (DC), Pneumonia, Thyroid Disorder Additional Past Medical History / Comment(s): Skin cancer on Left ear, altimers Last Myocardial Infarction Date:: 10/1999 History of Any Multi-Drug Resistant Organisms: None Reported Past Surgical History: Heart Catheterization With Stent Additional Past Surgical History / Comment(s): 3 stents placed in 10/1999 Past Anesthesia/Blood Transfusion Reactions: No Reported Reaction Date of Last Stent Placement:: 10/1999 Past Psychological History: Depression Smoking Status: Never smoker Past Alcohol Use History: None Reported Past Drug Use History: None Reported - Past Family History Father History Unknown: Yes General Exam General appearance: alert, in no apparent distress Head exam: Present: atraumatic, normocephalic, normal inspection Eye exam: Present: normal appearance, PERRL, EOMI. Absent: scleral icterus, conjunctival injection, periorbital swelling ENT exam: Present: normal exam, mucous membranes moist Neck exam: Present: normal inspection. Absent: tenderness, meningismus, lymphadenopathy Respiratory exam: Present: normal lung sounds bilaterally. Absent: respiratory distress, wheezes, rales, rhonchi, stridor Cardiovascular Exam: Present: regular rate, normal rhythm, normal heart sounds. Absent: systolic murmur, diastolic murmur, rubs, gallop, clicks GI/Abdominal exam: Present: soft, normal bowel sounds. Absent: distended, tenderness, guarding, rebound, rigid Extremities exam: Present: normal inspection, full ROM, normal capillary refill. Absent: tenderness, pedal edema, joint swelling, calf tenderness Back exam: Present: normal inspection Neurological exam: Present: alert, oriented X3, CN II-XII intact Psychiatric exam: Present: normal affect, normal mood Skin exam: Present: warm, dry, intact, normal color. Absent: rash Course Vital Signs 06/14/23 06/14/23 06/14/23 14:05 14:11 15:00 Temperature 98.2 F Pulse Rate 94 74 Respiratory 18 18 Rate Blood Pressure 73/45 79/49 O2 Sat by Pulse 97 100 Oximetry 06/14/23 06/14/23 06/14/23 15:15 15:30 15:45 Temperature Pulse Rate 74 75 74 Respiratory 18 22 20 Rate Blood Pressure 84/56 79/51 83/48 O2 Sat by Pulse 100 100 99 Oximetry 06/14/23 06/14/23 06/14/23 16:00 16:28 16:45 Temperature Pulse Rate 75 89 89 Respiratory 20 24 22 Rate Blood Pressure 71/57 89/49 87/55 O2 Sat by Pulse 99 95 95 Oximetry 06/14/23 06/14/23 06/14/23 17:00 18:00 19:00 Temperature Pulse Rate 78 73 73 Respiratory 35 H 22 11 L Rate Blood Pressure 72/49 93/53 86/60 O2 Sat by Pulse 97 Oximetry 06/14/23 06/14/23 20:00 21:00 Temperature Pulse Rate 70 68 Respiratory 14 12 Rate Blood Pressure 107/87 O2 Sat by Pulse Oximetry - Reevaluation(s) Reevaluation #1: 06/14/23 16:20 Medical records reviewed Reevaluation #2: 06/14/23 16:20 Patient symptoms unchanged Reevaluation #3: 06/14/23 16:20 Patient informed of results questions answered Reevaluation #4: 06/14/23 16:21 Was pt. sent in by a medical professional or institution (, PA, ANTIQUE FURNITURE REPRODUCER, urgent care, hospital, or jail...) When possible be specific @ -no Did you speak to anyone other than the patient for history (EMS, parent, family, police, friend...)? What history was obtained from this source @ -no Did you review nursing and triage notes (agree or disagree)? Why? @ -agree Are old charts reviewed (outside hosp., previous admission, EMS record, old EKG, old radiological studies, urgent care reports/EKG's, jail records)? Report findings @ -yes Differential Diagnosis (chest pain, altered mental status, abdominal pain women, abdominal pain men, vaginal bleeding, weakness, fever, dyspnea, syncope, headache, dizziness, GI bleed, back pain, seizure, CVA, palpatations, mental health, musculoskeletal)? @ -prior EKG interpreted by me (3pts min.). @ -yes X-rays interpreted by me (1pt min.). @ -yes negative for acute disease CT interpreted by me (1pt min.). @ -no U/S interpreted by me (1pt. min.). @ -no What testing was considered but not performed or refused? (CT, X-rays, U/S, labs)? Why? @ -none What meds were considered but not given or refused? Why? @ -none Did you discuss the management of the patient with other professionals (professionals i.e. , PA, ANTIQUE FURNITURE REPRODUCER, lab, RT, psych nurse, psychosocial rehabilitation counselor, electroplater helper, teacher, chief data officer, pillowcase cleaner)? Give summary @ -no Was smoking cessation discussed for >3mins.? @ -no Was critical care preformed (if so, how long)? @ -yes31 Were there social determinants of health that impacted care today? How? (Homelessness, low income, unemployed, alcoholism, drug addiction, transportation, low edu. Level, literacy, decrease access to med. care, long term, rehab)? @ -none Was there de-escalation of care discussed even if they declined (Discuss DNR or withdrawal of care, Hospice)? DNR status @ -no What co-morbidities impacted this encounter? (DM, HTN, Smoking, COPD, CAD, Cancer, CVA, ARF, Chemo, Hep., AIDS, mental health diagnosis, sleep apnea, morb id obesity)? @ -none Was patient admitted / discharged? Hospital course, mention meds given and rou te, prescriptions, significant lab abnormalities, going to OR and other pertinent info. @ - 77 male with urinary tract infection severe dehydration and altered mental status signs of sepsis, patient be admitted for IV antibiotics supportive care and hospice consult Admitted Undiagnosed new problem with uncertain prognosis? @ -no Drug Therapy requiring intensive monitoring for toxicity (Heparin, Nitro, Insulin, Cardizem)? @ -no Were any procedures done? @ -no Diagnosis/symptom? @ -UTI, AMS, sepsis Acute, or Chronic, or Acute on Chronic? @ -Acute Uncomplicated (without systemic symptoms) or Complicated (systemic symptoms)? @ -Complicated Side effects of treatment? @ -no Exacerbation, Progression, or Severe Exacerbation? @ -exacerbation Poses a threat to life or bodily function? How? (Chest pain, USA, DC, pneumonia, PE, COPD, DKA, ARF, appy, cholecystitis, CVA, Diverticulitis, Homicidal, Suicidal, threat to staff... and all critical care pts) @ -yes with significant extremes of age Reevaluation #5: 06/14/23 16:21 Differential Weakness: Hypoglycemia, shock, sepsis, hyponatremia, anemia, infection, DC, ETOH, adverse medicine reaction, overdose, stroke, this is not meant to be an all-inclusive list. - Consultations Consultation #1: spoke with H were agreeable admit this patient EKG Findings - EKG Comments: EKG Findings:: EKG is sinus 71 NE 182 QRS 90 QTC 420 - EKG Results: EKG: interpreted by ERMD Procedures - Sepsis Sepsis Focused Exam #1 Time Sepsis Criteria Met: 17:00 Sepsis Focused Exam Date: 06/14/23 Sepsis Focused Exam Time: 21:00 Sepsis Focused Exam Complete: Yes Vital Signs & RN Notes Reviewed: Yes Capillary Refill: < 2 Seconds: Fingers, Toes Peripheral Pulses: Normal: Radial (R), Radial (L), Posterior Tibialis (R), Pos terior Tibialis (L), Dorsalis Pedis (R), Dorsalis Pedis (L) Respiratory Exam: respiratory distress, wheezes, rhonchi Cardiovascular Exam: regular rate Medical Decision Making - Medical Decision Making 77 male with urinary tract infection severe dehydration and altered mental status signs of sepsis, patient be admitted for IV antibiotics supportive care and hospice consult - Lab Data Result diagrams: 06/15/23 06:25 06/16/23 07:59 Lab Results 06/14/23 06/14/23 06/14/23 Range/Units 14:15 14:15 14:15 WBC 14.0 H (3.8-10.6) k/uL RBC 4.10 L (4.30-5.90) m/uL Hgb 12.2 L D (13.0-17.5) gm/dL Hct 37.2 L (39.0-53.0) % MCV 90.8 (80.0-100.0) fL MCH 29.7 (25.0-35.0) pg MCHC 32.8 (31.0-37.0) g/dL RDW 13.9 (11.5-15.5) % Plt Count 319 (150-450) k/uL MPV 8.0 Neutrophils % 90 % Lymphocytes % 4 % Monocytes % 5 % Eosinophils % 0 % Basophils % 0 % Neutrophils # 12.6 H (1.3-7.7) k/uL Lymphocytes # 0.5 L (1.0-4.8) k/uL Monocytes # 0.7 (0-1.0) k/uL Eosinophils # 0.0 (0-0.7) k/uL Basophils # 0.0 (0-0.2) k/uL PT 12.3 (10.0-12.5) sec INR 1.1 (<1.2) APTT 27.6 (22.0-30.0) sec Sodium 136 L (137-145) mmol/L Potassium 5.3 H (3.5-5.1) mmol/L Chloride 107 (98-107) mmol/L Carbon Dioxide 21 L (22-30) mmol/L Anion Gap 8 mmol/L BUN 56 H (9-20) mg/dL Creatinine 2.21 H (0.66-1.25) mg/dL Est GFR (CKD-EPI)AfAm 32 (>60 ml/min/1.73 sqM) Est GFR (CKD-EPI)NonAf 28 (>60 ml/min/1.73 sqM) Glucose 130 H (74-99) mg/dL Plasma Lactic Acid Eddie (0.7-2.0) mmol/L Calcium 7.8 L (8.4-10.2) mg/dL Phosphorus 3.6 (2.5-4.5) mg/dL Magnesium 2.1 (1.6-2.3) mg/dL Total Bilirubin 0.7 (0.2-1.3) mg/dL AST 64 H (17-59) U/L ALT 77 H (4-49) U/L Alkaline Phosphatase 103 (38-126) U/L Troponin I (0.000-0.034) ng/mL NT-Pro-B Natriuret Pep 3380 pg/mL Total Protein 5.4 L (6.3-8.2) g/dL Albumin 2.6 L (3.5-5.0) g/dL Urine Color Urine Appearance (Clear) Urine pH (5.0-8.0) Ur Specific Reading (1.001-1.035) Urine Protein (Negative) Urine Glucose (UA) (Negative) Urine Ketones (Negative) Urine Blood (Negative) Urine Nitrite (Negative) Urine Bilirubin (Negative) Urine Urobilinogen (<2.0) mg/dL Ur Leukocyte Esterase (Negative) Urine RBC (0-5) /hpf Urine WBC (0-5) /hpf Urine WBC Clumps (None) /hpf Ur Squamous Epith Cells (0-4) /hpf Urine Bacteria (None) /hpf 06/14/23 06/14/23 06/14/23 Range/Units 14:15 14:15 14:38 WBC (3.8-10.6) k/uL RBC (4.30-5.90) m/uL Hgb (13.0-17.5) gm/dL Hct (39.0-53.0) % MCV (80.0-100.0) fL MCH (25.0-35.0) pg MCHC (31.0-37.0) g/dL RDW (11.5-15.5) % Plt Count (150-450) k/uL MPV Neutrophils % % Lymphocytes % % Monocytes % % Eosinophils % % Basophils % % Neutrophils # (1.3-7.7) k/uL Lymphocytes # (1.0-4.8) k/uL Monocytes # (0-1.0) k/uL Eosinophils # (0-0.7) k/uL Basophils # (0-0.2) k/uL PT (10.0-12.5) sec INR (<1.2) APTT (22.0-30.0) sec Sodium (137-145) mmol/L Potassium (3.5-5.1) mmol/L Chloride (98-107) mmol/L Carbon Dioxide (22-30) mmol/L Anion Gap mmol/L BUN (9-20) mg/dL Creatinine (0.66-1.25) mg/dL Est GFR (CKD-EPI)AfAm (>60 ml/min/1.73 sqM) Est GFR (CKD-EPI)NonAf (>60 ml/min/1.73 sqM) Glucose (74-99) mg/dL Plasma Lactic Acid Eddie 1.4 (0.7-2.0) mmol/L Calcium (8.4-10.2) mg/dL Phosphorus (2.5-4.5) mg/dL Magnesium (1.6-2.3) mg/dL Total Bilirubin (0.2-1.3) mg/dL AST (17-59) U/L ALT (4-49) U/L Alkaline Phosphatase (38-126) U/L Troponin I 0.033 (0.000-0.034) ng/mL NT-Pro-B Natriuret Pep pg/mL Total Protein (6.3-8.2) g/dL Albumin (3.5-5.0) g/dL Urine Color Yellow Urine Appearance Turbid (Clear) Urine pH 5.5 (5.0-8.0) Ur Specific Reading 1.017 (1.001-1.035) Urine Protein 1+ H (Negative) Urine Glucose (UA) Negative (Negative) Urine Ketones Negative (Negative) Urine Blood Moderate H (Negative) Urine Nitrite Negative (Negative) Urine Bilirubin Negative (Negative) Urine Urobilinogen <2.0 (<2.0) mg/dL Ur Leukocyte Esterase Large H (Negative) Urine RBC 23 H (0-5) /hpf Urine WBC 166 H (0-5) /hpf Urine WBC Clumps Many H (None) /hpf Ur Squamous Epith Cells 2 (0-4) /hpf Urine Bacteria Many H (None) /hpf - EKG Data -: EKG Interpreted by Id - Radiology Data Radiology results: report reviewed (Chest x-rays negative for acute disease), image reviewed Critical Care Time Critical Care Time: Yes Total Critical Care Time: 31 Disposition Clinical Impression: Generalized weakness, Weakness, Altered mental status, UTI (urinary tract infection) Disposition: ADMITTED IP TO THIS [facility] Is patient prescribed a controlled substance at d/c from ED?: No Time of Disposition: 16:00
[2023-06-14] MEDS: SODIUM CHLORIDE 0.9% 1,000 ML IV STA ×2 (14:37→16:27)
[2023-06-14 14:53] LABS: Basophils % (A) 0 %; Eosinophils % (A) 0 %; HCT 37.2 % (39.0-53.0); Lymphocytes # (A) 0.5 k/uL (1.0-4.8); Lymphocytes % (A) 4 %; MCH 29.7 pg (25.0-35.0); MCHC 32.8 g/dL (31.0-37.0); MCV 90.8 fL (80.0-100.0); Monocytes # (A) 0.7 k/uL (0-1.0); Monocytes % (A) 5 %; Neutrophils # (A) 12.6 k/uL (1.3-7.7); Neutrophils % (A) 90 %; Platelet Count 319 k/uL (150-450); RDW 13.9 % (11.5-15.5)
[2023-06-14 14:55] LABS: HGB 12.2 gm/dL (13.0-17.5); INR 1.1 (<1.2); Partial Thromboplastin Time 27.6 sec (22.0-30.0); Prothrombin Time 12.3 sec (10.0-12.5)
--- NOTE | 2023-06-14 14:57 | XR ---
EXAMINATION TYPE: XR chest 1V portable DATE OF EXAM: 06/14/2023 Comparison: 05/20/2023 Clinical History: 77-year-old male sob Findings: Low lung volumes. Asymmetrically elevated right hemidiaphragm obscures the right heart margin. Visual ized upper and mid lungs are clear. Atherosclerotic arch calcifications. Impression: Prominent hypoventilatory changes limiting the exam. The right hemidiaphragm is asymmetrically higher . If concern for hemidiaphragmatic paralysis, a fluoroscopic sniff test could be performed. Upper and mid lungs appear clear.
[2023-06-14 15:00] LABS: ALT 77 U/L (4-49); AST 64 U/L (17-59); African American GFR (CKD) 32 (>60 ml/min/1.73 sqM); Albumin 2.6 g/dL (3.5-5.0); Alkaline Phosphatase 103 U/L (38-126); Anion Gap 8 mmol/L; Blood Urea Nitrogen 56 mg/dL (9-20); Calcium 7.8 mg/dL (8.4-10.2); Carbon Dioxide 21 mmol/L (22-30); Chloride 107 mmol/L (98-107); Glucose 130 mg/dL (74-99); Magnesium 2.1 mg/dL (1.6-2.3); Non-African American GFR(CKD) 28 (>60 ml/min/1.73 sqM); Phosphorus 3.6 mg/dL (2.5-4.5); Potassium 5.3 mmol/L (3.5-5.1); Sodium 136 mmol/L (137-145); Total Bilirubin 0.7 mg/dL (0.2-1.3); Total Protein 5.4 g/dL (6.3-8.2)
[2023-06-14 15:08] LABS: NT-Pro-B-Type Natriuretic Pept 3380 pg/mL
[2023-06-14] MEDS: SODIUM CHLORIDE 0.9% 1,000 ML IV ONE (15:46)
[2023-06-14 16:00] LABS: Appearance,Urine Turbid (Clear); Bacteria,Urine Many /hpf; Bilirubin,Urine Negative (Negative); Blood,Urine Moderate (Negative); Color,Urine Yellow; Glucose,Urine (UA) Negative (Negative); Ketones,Urine Negative (Negative); Leukocyte Esterase,Urine Large (Negative); Nitrite,Urine Negative (Negative); PH, Urine 5.5 (5.0-8.0); Protein,Urine 1+ (Negative); RBC,Urine 23 /hpf (0-5); Specific Gravity,Urine 1.017 (1.001-1.035); Squamous Epithelial Cell,Urine 2 /hpf (0-4); Urobilinogen,Urine <2.0 mg/dL (<2.0); WBC,Urine 166 /hpf (0-5)
[2023-06-14] MEDS ORDERED: MORPHINE SULFATE 4 MG/ML SYRINGE IV PRN (16:15)
[2023-06-14] MEDS ORDERED: NALOXONE 0.4 MG/ML 1 ML VIAL IV PRN (16:15)
[2023-06-14] MEDS ORDERED: ONDANSETRON 4 MG/2 ML VIAL IVP PRN (16:15)
[2023-06-14] MEDS: SODIUM CHLORIDE 0.9% 500 ML 500 ML IV STA (16:27)
[2023-06-15] MEDS ORDERED: ACETAMINOPHEN TAB 325 MG TAB PO PRN (10:28)
[2023-06-15] MEDS: CYANOCOBALAMIN 500 MCG TAB PO SCH (11:06)
[2023-06-15] MEDS: METOPROLOL TARTRATE 25 MG TAB PO SCH (11:06)
[2023-06-15] MEDS: CLOPIDOGREL 75 MG TAB PO SCH (11:06)
[2023-06-15] MEDS: FAMOTIDINE 20 MG TAB PO SCH (11:06)
[2023-06-15] MEDS: ISOSORBIDE MONONITRATE ER 30 MG TAB.ER.24H PO SCH (11:06)
[2023-06-15] MEDS: LEVOTHYROXINE 75 MCG TAB PO SCH (11:06)
[2023-06-15] MEDS: ENOXAPARIN 30 MG/0.3 ML SYRINGE SQ SCH (11:06)
[2023-06-15 12:46] LABS: Magnesium 1.9 mg/dL (1.5-2.4); Phosphorus 2.7 mg/dL (2.4-5.1)
[2023-06-15 12:47] LABS: Basophils # (A) 0.03 X 10*3/uL (0.00-0.10); Basophils % (A) 0.3 %; Eosinophils # (A) 0.01 X 10*3/uL (0.04-0.35); Eosinophils % (A) 0.1 %; HGB 11.2 g/dL (13.0-17.0); Lymphocytes # (A) 0.49 X 10*3/uL (0.90-5.00); Lymphocytes % (A) 4.6 %; MCH 28.7 pg (27.0-32.0); MCHC 30.3 g/dL (32.0-37.0); MCV 94.9 FL (80.0-97.0); Mean Platelet Volume 9.8 FL (9.5-12.2); Monocytes % (A) 6.6 %; NRBC Per 100 WBC 0 X 10*3/uL (0.00-0.01); Neutrophils # (A) 9.29 X 10*3/uL (1.80-7.70); Neutrophils % (A) 87.6 %; Platelet Count 281 X 10*3/uL (140-440); RDW 13.9 % (11.5-14.5)
[2023-06-15 12:51] LABS: ALT 60 U/L (10-49); AST 50 U/L (14-35); Albumin 2.4 g/dL (3.8-4.9); Albumin/Globulin Ratio 0.96 Ratio (1.60-3.17); Alkaline Phosphatase 82 U/L (41-126); BUN/Creat Ratio 26.19 Ratio (12.00-20.00); Blood Urea Nitrogen 41.9 mg/dL (9.0-27.0); Calcium 7.7 mg/dL (8.7-10.3); Carbon Dioxide 17.9 mmol/L (21.6-31.8); Chloride 113 mmol/L (96-109); Globulin 2.5 g/dL (1.6-3.3); Glucose 84 mg/dL (70-110); Potassium 4.9 mmol/L (3.5-5.5); Sodium 143 mmol/L (135-145); Total Bilirubin 0.3 mg/dL (0.3-1.2); Total Protein 4.9 g/dL (6.2-8.2)
[2023-06-15] MEDS: SERTRALINE 100 MG TAB PO SCH (20:18)
[2023-06-15] MEDS: EZETIMIBE 10 MG TAB PO SCH (20:18)
[2023-06-15] MEDS: MEMANTINE 5 MG TAB PO SCH (20:18)
[2023-06-15] MEDS: ATORVASTATIN 20 MG TAB PO SCH (20:18)
--- NOTE | 2023-06-15 21:49 | P.HPIM ---
History of Present Illness H&P Date: 06/15/23 Chief Complaint: unresponsive This is a pleasant 77 years old male with multiple medical problems , follows with Dr. Umana. Currently at rehab at [facility]. She recently in the hospital around [place]. With recurrent falls. Sent to rehab. Patient was sent in from the [facility] as he was found to be unresponsive. Patient is started use a walker and wheelchair that. Patient appetite is down according to the . He is a DO NOT RESUSCITATE. She does inform me that somebody DrSherine curran about possible hospice. They're not ready for the same. Fever and chills. Patient able to hold a simple conversation. Review of systems: GEN.: Tired on decreased appetite EYES: None HEENT: None NECK: None RESPIRATORY: None CARDIOVASCULAR: None GASTROINTESTINAL: None GENITOURINARY: None MUSCULOSKELETAL: None LYMPHATICS: None HEMATOLOGICAL: None PSYCHIATRY: Forgetful NEUROLOGICAL: Uses a walker Past medical history to include: COPD, dementia, hypertension, hyperlipidemia, hypothyroid, skin cancer left ear, CAD with stent, depression Social history: Nonsmoker. . Currently at rehab Physical examination: VITAL SIGNS: 98.5, 96, 18, 98/59, 93% on 4 L GENERAL: BMI 34.7, declining but awake a bit tired EYES: Pupils equal. Conjunctiva normal. HEENT: External appearance of nose and ears normal, oral cavity grossly normal. NECK: JVD not raised; masses not palpable. HEART: First and second heart sounds are normal; no edema. LUNGS: Respiratory rate normal; diminished breath sounds. ABDOMEN: Soft, nontender, liver spleen not palpable, no masses palpable. PSYCH: She is able to answer simple questions. MUSCULOSKELETAL:No Clubbing/cyanosis;muscles-grossly intact. OA NEUROLOGICAL: Cranial nerves grossly intact; no facial asymmetry, power and sensation grossly intact. LYMPHATICS: No lymph nodes palpable in the axilla and neck INVESTIGATIONS, reviewed in the clinical context: June 15: Creatinine 1.6 June 14: White count 14 hemoglobin 12.2 sodium 136 potassium 5.3 BUN 56 creatinine 2.21 EKG tracing personally reviewed by me-normal sinus rhythm. Incomplete right bundle branch block. Nonspecific ST/T-wave changes. Chest x-ray film personally reviewed by me-portable. No obvious infiltrates Previous labs 05/20/2023: BUN 20 creatinine 1.04 Assessment and Plan : -Patient presents with episodes of unresponsiveness. Likely metabolic encephalopathy from worsening renal failure. Decreased oral intake. -Acute kidney injury combination of prerenal and ATN. Creatinine on May 20 was 1.04. On admission 2.21 Stop Zestril. IV fluids. -Recent acute on chronic medical debility. PT OT at [facility]. Does use a walker and a wheelchair. -Chronic gait dysfunction baseline uses a walker -Chronic elevation right hemidiaphragm -Hypothyroidism Synthroid -Hypertension Lopressor -Hyperlipidemia vytorin -Coronary artery disease prior PCI in 1999 Plavix, Lopressor - depression, Zoloft -Severe cognitive impairment secondary to Alzheimer Dementia: Progressive Namenda -DO NOT RESUSCITATE Given the complexity and severity of patient's condition expect the patient to be in the hospital at least for 2 overnights Advance care planning: [05/15/2024. This was done with the patient and the at the bedside. As patient's presentations acute. This point patient does not want hospice. Which may be appropriate at this point. Discussed with her that that may be appropriate down the road. Patient otherwise eating well. Was to get back to therapy. This point patient to remain DO NOT RESUSCITATE. is the decision maker. Time spent about 25 minutes Past Medical History Past Medical History: Coronary Artery Disease (CAD), Cancer, Dementia, Hyperlipidemia, Hypertension, Memory Impairment, Myocardial Infarction (MS), Pneumonia, Thyroid Disorder Additional Past Medical History / Comment(s): Skin cancer on Left ear, altimers Last Myocardial Infarction Date:: 10/1999 History of Any Multi-Drug Resistant Organisms: None Reported Past Surgical History: Heart Catheterization With Stent Additional Past Surgical History / Comment(s): 3 stents placed in 10/1999 Past Anesthesia/Blood Transfusion Reactions: No Reported Reaction Date of Last Stent Placement:: 10/1999 Past Psychological History: Depression Smoking Status: Never smoker Past Alcohol Use History: None Reported Past Drug Use History: None Reported - Past Family History Father History Unknown: Yes Medications and Allergies Home Medications Medication Instructions Recorded Confirmed Type Clopidogrel [Plavix] 75 mg PO DAILY 04/17/16 06/14/23 History Ezetimibe/Simvastatin [Vytorin 1 tab PO HS 04/17/16 06/14/23 History 10-40 mg Tablet] Isosorbide Mononitrate ER [Imdur] 30 mg PO DAILY 04/17/16 06/14/23 History Sertraline [Zoloft] 100 mg PO HS 04/17/16 06/14/23 History Memantine [Namenda] 5 mg PO BID 03/16/22 06/14/23 History Cholecalciferol [Vitamin D3 (25 50 mcg PO DAILY tab 03/24/22 06/14/23 Rx Mcg = 1000 Iu)] Famotidine [Pepcid] 20 mg PO DAILY tab 03/24/22 06/14/23 Rx Cyanocobalamin (Vitamin B-12) 1,000 mcg PO DAILY 05/20/23 06/14/23 History [Vitamin B-12] Levothyroxine Sodium [Synthroid] 75 mcg PO DAILY 05/20/23 06/14/23 History lisinopriL [Zestril] 5 mg PO DAILY 05/20/23 06/14/23 History Acetaminophen [Tylenol 8 Hour] 650 mg PO Q6H PRN 06/14/23 06/14/23 History Magnesium Hydroxide [Milk of 2,400 mg PO Q72H PRN 06/14/23 06/14/23 History Magnesia] Metoprolol Tartrate [Lopressor] 25 mg PO BID 06/14/23 06/14/23 History Allergies Allergy/AdvReac Type Severity Reaction Status Date / Time Penicillins AdvReac Nausea & Verified 06/14/23 16:05 Vomiting Physical Exam Vitals: Vital Signs Temp Pulse Pulse Resp BP BP Pulse Ox 06/15/23 07:25 98.5 F 96 18 98/59 93 L 06/15/23 02:00 97.1 F L 77 18 121/65 94 L 06/14/23 22:16 97.2 F L 70 18 146/79 97 06/14/23 21:50 70 18 06/14/23 21:00 68 12 107/87 06/14/23 20:00 70 14 06/14/23 19:00 73 11 L 86/60 06/14/23 18:00 73 22 93/53 06/14/23 17:00 78 35 H 72/49 97 06/14/23 16:45 89 22 87/55 95 06/14/23 16:28 89 24 89/49 95 01/19/24 16:00 75 20 71/57 99 06/14/23 15:45 74 20 83/48 99 06/14/23 15:30 75 22 79/51 100 06/14/23 15:15 74 18 84/56 100 06/14/23 15:00 74 18 79/49 100 06/14/23 14:11 94 18 73/45 97 06/14/23 14:05 98.2 F Intake and Output 06/14/23 06/15/23 06/15/23 22:59 06:59 14:59 Intake Total 540 Balance 540 Intake: Oral 540 Other: Voiding Method Diaper Diaper # Voids 1 3 Weight 97.522 kg Results CBC & Chem 7: 06/15/23 06:25 06/15/23 06:25 Labs: Abnormal Lab Results - Last 24 Hours (Table) 06/14/23 06/14/23 06/14/23 Range/Units 14:15 14:15 14:38 WBC 14.0 H (3.8-10.6) k/uL RBC 4.10 L (4.30-5.90) m/uL Hgb 12.2 L D (13.0-17.5) gm/dL Hct 37.2 L (39.0-53.0) % Neutrophils # 12.6 H (1.3-7.7) k/uL Lymphocytes # 0.5 L (1.0-4.8) k/uL Sodium 136 L (137-145) mmol/L Potassium 5.3 H (3.5-5.1) mmol/L Carbon Dioxide 21 L (22-30) mmol/L BUN 56 H (9-20) mg/dL Creatinine 2.21 H (0.66-1.25) mg/dL Glucose 130 H (74-99) mg/dL Calcium 7.8 L (8.4-10.2) mg/dL AST 64 H (17-59) U/L ALT 77 H (4-49) U/L Total Protein 5.4 L (6.3-8.2) g/dL Albumin 2.6 L (3.5-5.0) g/dL Urine Protein 1+ H (Negative) Urine Blood Moderate H (Negative) Ur Leukocyte Esterase Large H (Negative) Urine RBC 23 H (0-5) /hpf Urine WBC 166 H (0-5) /hpf Urine WBC Clumps Many H (None) /hpf Urine Bacteria Many H (None) /hpf Thrombosis Risk Factor Assmnt - Choose All That Apply Any of the Below Risk Factors Present?: No Other Risk Factors: Yes Each Risk Factor Represents 3 Points: Age 75 years or older Thrombosis Risk Factor Assessment Total Risk Factor Score: 3 Thrombosis Risk Factor Assessment Level: Moderate Risk
[2023-06-15] MEDS: SODIUM CHLORIDE 0.9% 1,000 ML IV SCH (22:04)
[2023-06-16 08:47] LABS: African American GFR (CKD) 77 (>60 ml/min/1.73 sqM); Anion Gap 4 mmol/L; Blood Urea Nitrogen 32 mg/dL (9-20); Calcium 7.9 mg/dL (8.4-10.2); Carbon Dioxide 21 mmol/L (22-30); Chloride 112 mmol/L (98-107); Glucose 88 mg/dL (74-99); Non-African American GFR(CKD) 67 (>60 ml/min/1.73 sqM); Potassium 4.8 mmol/L (3.5-5.1); Sodium 137 mmol/L (137-145)
[2023-06-16] MEDS: CHOLECALCIFEROL 25 MCG (1000 IU) TABLET PO SCH (08:47)
[2023-06-16] MEDS: ENOXAPARIN 40 MG/0.4 ML SYRINGE SQ SCH (08:48)
[2023-06-16] MEDS: ZINC OXIDE PASTE (Z-GUARD) 1 APPLIC TOPICAL PRN (22:17)
--- NOTE | 2023-06-16 23:48 | P.PN ---
Progress Note - Text Progress Note Date: 06/16/23 Chief Complaint: unresponsive This is a pleasant 77 years old male with multiple medical problems , follows with Dr. Umana. Currently at rehab at [facility]. She recently in the hospital around [place]. With recurrent falls. Sent to rehab. Patient was sent in from the ECF as he was found to be unresponsive. Patient is started use a walker and wheelchair that. Patient appetite is down according to the . He is a DO NOT RESUSCITATE. She does inform me that somebody talk to her her about possible hospice. They're not ready for the same. Fever and chills. Patient able to hold a simple conversation. 06/16/2023: doing much better. Tolerating a diet. Tired. Creatinine coming down. Plan to return to ECF. Active Medications Acetaminophen (Acetaminophen Tab 325 Mg Tab) 650 mg PO Q6H PRN PRN Reason: Pain Atorvastatin Calcium (Atorvastatin 20 Mg Tab) 20 mg PO [facility] Last Admin: 06/16/23 20:32 Dose: 20 mg Cholecalciferol (Cholecalciferol 25 Mcg (1000 Iu) Tablet) 50 mcg PO DAILY [facility] Last Admin: 06/16/23 08:47 Dose: 50 mcg Clopidogrel Bisulfate (Clopidogrel 75 Mg Tab) 75 mg PO DAILY [facility] Last Admin: 06/16/23 08:48 Dose: 75 mg Cyanocobalamin (Cyanocobalamin 500 Mcg Tab) 1,000 mcg PO DAILY [facility] Last Admin: 06/16/23 08:47 Dose: 1,000 mcg Ezetimibe (Ezetimibe 10 Mg Tab) 10 mg PO [facility] Last Admin: 06/16/23 20:32 Dose: 10 mg Enoxaparin Sodium (Enoxaparin 40 Mg/0.4 Ml Syringe) 40 mg SQ DAILY [facility] Last Admin: 06/16/23 08:48 Dose: 40 mg Famotidine (Famotidine 20 Mg Tab) 20 mg PO DAILY [facility] Last Admin: 06/16/23 08:47 Dose: 20 mg Ceftriaxone Sodium 2 gm/ (Sodium Chloride) 50 mls @ 100 mls/hr IVPB Q24HR [facility]; Protocol Last Admin: 06/16/23 08:47 Dose: 100 mls/hr Sodium Chloride (Saline 0.9%) 1,000 mls @ 100 mls/hr IV .Q10H [facility] Last Admin: 06/16/23 19:32 Dose: 100 mls/hr Isosorbide Mononitrate (Isosorbide Mononitrate Er 30 Mg Tab.Er.24h) 30 mg PO DAILY [facility] Last Admin: 06/16/23 08:47 Dose: 30 mg Levothyroxine Sodium (Levothyroxine 75 Mcg Tab) 75 mcg PO DAILY@0630 [facility] Last Admin: 06/16/23 05:36 Dose: 75 mcg Memantine (Memantine 5 Mg Tab) 5 mg PO BID [facility] Last Admin: 06/16/23 20:32 Dose: 5 mg Metoprolol Tartrate (Metoprolol Tartrate 25 Mg Tab) 25 mg PO BID [facility] Last Admin: 06/16/23 20:32 Dose: 25 mg Naloxone HCl (Naloxone 0.4 Mg/Ml 1 Ml Vial) 0.2 mg IV Q2M PRN PRN Reason: Opioid Reversal Ondansetron HCl (Ondansetron 4 Mg/2 Ml Vial) 4 mg IVP Q8HR PRN PRN Reason: Nausea And Vomiting Petrolatum (Zinc Oxide Paste (Z-Guard) 1 Applic) 1 applic TOPICAL Q2HR PRN; Protocol PRN Reason: Wound Healing Last Admin: 06/16/23 22:17 Dose: 1 applic Sertraline HCl (Sertraline 100 Mg Tab) 100 mg PO HS [facility] Last Admin: 06/16/23 20:32 Dose: 100 mg Past medical history to include: COPD, dementia, hypertension, hyperlipidemia, hypothyroid, skin cancer left ear, CAD with stent, depression Social history: Nonsmoker. . Currently at rehab Physical examination: VITAL SIGNS: 98, 85, 19, 140/88, 93% on 4 L GENERAL: Laying in bed, tired EYES: Pupils equal. Conjunctiva normal. HEENT: External appearance of nose and ears normal, oral cavity grossly normal. NECK: JVD not raised; masses not palpable. HEART: First and second heart sounds are normal; no edema. LUNGS: Respiratory rate normal; diminished breath sounds. ABDOMEN: Soft, nontender, liver spleen not palpable, no masses palpable. PSYCH: Edilma simple conversation. MUSCULOSKELETAL:No Clubbing/cyanosis;muscles-grossly intact. OA INVESTIGATIONS, reviewed in the clinical context: June 16: Potassium 4.8 BUN 32 creatinine 1.07 [place] 20: Creatinine 1.6 June 14: White count 14 hemoglobin 12.2 sodium 136 potassium 5.3 BUN 56 creatinine 2.21 EKG tracing personally reviewed by me-normal sinus rhythm. Incomplete right bundle branch block. Nonspecific ST/T-wave changes. Chest x-ray film personally reviewed by me-portable. No obvious infiltrates Previous labs 05/20/2023: BUN 20 creatinine 1.04 Assessment and Plan : -episodes of unresponsiveness. Likely metabolic encephalopathy from worsening renal failure. Decreased oral intake.: Better -Acute kidney injury combination of prerenal and ATN. On improving Creatinine on May 20 was 1.04. On admission 2.21 Stop Zestril. IV fluids. -Recent acute on chronic medical debility. PT OT at [facility]. Does use a walker and a wheelchair. -Chronic gait dysfunction baseline uses a walker -Chronic elevation right hemidiaphragm -Hypothyroidism Synthroid -Hypertension Lopressor -Hyperlipidemia vytorin -Coronary artery disease prior PCI in 1999 Plavix, Lopressor - depression, Zoloft -Severe cognitive impairment secondary to Alzheimer Dementia: Progressive Namenda -DO NOT RESUSCITATE Advance care planning: [05/15/2024. This was done with the patient and the at the bedside. As patient's presentations acute. This point patient does not want hospice. Which may be appropriate at this point. Discussed with her that that may be appropriate down the road. Patient otherwise eating well. Was to get back to therapy. This point patient to remain DO NOT RESUSCITATE. is the decision maker. Time spent about 25 minutes Plan for DC to ECF tomorrow Past Medical History Past Medical History: Coronary Artery Disease (CAD), Cancer, Dementia, Hyperlipidemia, Hypertension, Memory Impairment, Myocardial Infarction ([place]), Pneumonia, Thyroid Disorder Additional Past Medical History / Comment(s): Skin cancer on Left ear, altimers Last Myocardial Infarction Date:: 10/1999 History of Any Multi-Drug Resistant Organisms: None Reported Past Surgical History: Heart Catheterization With Stent Additional Past Surgical History / Comment(s): 3 stents placed in 10/1999 Past Anesthesia/Blood Transfusion Reactions: No Reported Reaction Date of Last Stent Placement:: 10/1999 Past Psychological History: Depression Smoking Status: Never smoker Past Alcohol Use History: None Reported Past Drug Use History: None Reported
--- NOTE | 2023-06-17 14:06 | CDI ---
Documentation Clarification Form Date: 06/17/2023 01:44:38 PM From: Maria T Donnelly RN, CCDS Phone: [phone] Admit Date: 06/14/2023 04:18:00 PM Patient Name: Emile Cruz Visit Number: [id number] Discharge Date: ATTENTION: The Clinical Documentation Specialists (CDI) and [facility] Coding Staff appreciate your assistance in clarifying documentation. Please respond to the clarification below the line at the bottom and electronically sign. The CDI & [facility] Coding staff will review the response and follow-up if needed. Please note: Queries are made part of the Legal Health Record. If you have any questions, please contact the author of this message via ITS. Dr. Humberto Caro Urinary tract infection is documented in the ER assessment but is not noted in the H/P and subsequent documentation. Clarification is requested. History/Risk Factors: (CAD), Cancer, Dementia, Hyperlipidemia, Hypertension, Thyroid Disorder Clinical Indicators: 77-year-old male sent in from the ECF as he was found to be unresponsive. He been tired and has had decreased appetite. 06/14 VS: 73/45 94 18 98.2 97% 3/L NC 06/14 Labs: WBC 14.0, Neutrophils 12.6 UA: Turbid, Ur Leukocyte Esterase Large, WBC 166 Treatment: Rocephin 2 GM IVPB Once 06/14 then Q 24 HRS -06/17 Ceftin 250 MG PO BID # 10 TABS (AT DC) Please clarify if the UTI is: [ + ] UTI confirmed, remains under treatment [ ] UTI confirmed, resolved [ ] UTI ruled out [ ] Other condition, please specify [ ] Unable to determine (Template Last Revised: July 2020) MTDD
--- NOTE | 2023-06-17 17:07 | P.PN ---
Progress Note - Text Progress Note Date: 06/17/23 Chief Complaint: unresponsive This is a pleasant 77 years old male with multiple medical problems , follows with Dr. Umana. Currently at rehab at [facility]. She recently in the hospital around [place]. With recurrent falls. Sent to rehab. Patient was sent in from the ECF as he was found to be unresponsive. Patient is started use a walker and wheelchair that. Patient appetite is down according to the . He is a DO NOT RESUSCITATE. She does inform me that somebody talk to her her about possible hospice. They're not ready for the same. Fever and chills. Patient able to hold a simple conversation. On home oxygen 4 L 06/16/2023: doing much better. Tolerating a diet. Tired. Creatinine coming down. Plan to return to [facility]. 06/17/2023: Pending authorization to go back to rehab. Feeling better. Spoke to the hospice nurse. No hospice at the present time. Maybe down the road. Eating about 50-75%. In by physical therapy. Able to stand for 15 seconds before requiring to sit down. Active Medications Acetaminophen (Acetaminophen Tab 325 Mg Tab) 650 mg PO Q6H PRN PRN Reason: Pain Atorvastatin Calcium (Atorvastatin 20 Mg Tab) 20 mg PO HS [facility] Last Admin: 06/16/23 20:32 Dose: 20 mg Cholecalciferol (Cholecalciferol 25 Mcg (1000 Iu) Tablet) 50 mcg PO DAILY [facility] Last Admin: 06/17/23 09:59 Dose: 50 mcg Clopidogrel Bisulfate (Clopidogrel 75 Mg Tab) 75 mg PO DAILY [facility] Last Admin: 06/17/23 09:59 Dose: 75 mg Cyanocobalamin (Cyanocobalamin 500 Mcg Tab) 1,000 mcg PO DAILY [facility] Last Admin: 06/17/23 09:59 Dose: 1,000 mcg Ezetimibe (Ezetimibe 10 Mg Tab) 10 mg PO [facility] Last Admin: 06/16/23 20:32 Dose: 10 mg Enoxaparin Sodium (Enoxaparin 40 Mg/0.4 Ml Syringe) 40 mg SQ DAILY [facility] Last Admin: 06/17/23 09:59 Dose: 40 mg Famotidine (Famotidine 20 Mg Tab) 20 mg PO DAILY [facility] Last Admin: 01/22/24 09:59 Dose: 20 mg Ceftriaxone Sodium 2 gm/ (Sodium Chloride) 50 mls @ 100 mls/hr IVPB Q24HR [facility]; Protocol Last Admin: 06/17/23 09:58 Dose: 100 mls/hr Sodium Chloride (Saline 0.9%) 1,000 mls @ 100 mls/hr IV .Q10H [facility] Last Admin: 06/17/23 16:12 Dose: 100 mls/hr Isosorbide Mononitrate (Isosorbide Mononitrate Er 30 Mg Tab.Er.24h) 30 mg PO DAILY [facility] Last Admin: 06/17/23 09:59 Dose: 30 mg Levothyroxine Sodium (Levothyroxine 75 Mcg Tab) 75 mcg PO DAILY@0630 [facility] Last Admin: 06/17/23 05:36 Dose: 75 mcg Memantine (Memantine 5 Mg Tab) 5 mg PO BID [facility] Last Admin: 06/17/23 09:59 Dose: 5 mg Metoprolol Tartrate (Metoprolol Tartrate 25 Mg Tab) 25 mg PO BID [facility] Last Admin: 06/17/23 09:59 Dose: 25 mg Naloxone HCl (Naloxone 0.4 Mg/Ml 1 Ml Vial) 0.2 mg IV Q2M PRN PRN Reason: Opioid Reversal Ondansetron HCl (Ondansetron 4 Mg/2 Ml Vial) 4 mg IVP Q8HR PRN PRN Reason: Nausea And Vomiting Petrolatum (Zinc Oxide Paste (Z-Guard) 1 Applic) 1 applic TOPICAL Q2HR PRN; Protocol PRN Reason: Wound Healing Last Admin: 06/16/23 22:17 Dose: 1 applic Sertraline HCl (Sertraline 100 Mg Tab) 100 mg PO HS [facility] Last Admin: 06/16/23 20:32 Dose: 100 mg Past medical history to include: COPD, dementia, hypertension, hyperlipidemia, hypothyroid, skin cancer left ear, CAD with stent, depression Social history: Nonsmoker. . Currently at rehab Physical examination: VITAL SIGNS: 97.4, 64, 18, 106/65, 98% on 4 L GENERAL: Laying in bed, tired EYES: Pupils equal. Conjunctiva normal. HEENT: External appearance of nose and ears normal, oral cavity grossly normal. NECK: JVD not raised; masses not palpable. HEART: First and second heart sounds are normal; no edema. LUNGS: Respiratory rate normal; diminished breath sounds. ABDOMEN: Soft, nontender, liver spleen not palpable, no masses palpable. PSYCH: Edilma simple conversation. MUSCULOSKELETAL:No Clubbing/cyanosis;muscles-grossly intact. OA INVESTIGATIONS, reviewed in the clinical context: June 16: Potassium 4.8 BUN 32 creatinine 1.07 June 15: Creatinine 1.6 June 14: White count 14 hemoglobin 12.2 sodium 136 potassium 5.3 BUN 56 creatinine 2.21 EKG tracing personally reviewed by me-normal sinus rhythm. Incomplete right bundle branch block. Nonspecific ST/T-wave changes. Chest x-ray film personally reviewed by me-portable. No obvious infiltrates Previous labs 05/20/2023: BUN 20 creatinine 1.04 Assessment and Plan : -episodes of unresponsiveness. Likely metabolic encephalopathy from worsening renal failure. Decreased oral intake.: Better -Acute kidney injury combination of prerenal and ATN. Improved Creatinine on May 20 was 1.04. On admission 2.21 Stop Zestril. IV fluids. -Recent acute on chronic medical debility. PT OT at [facility]. -Chronic gait dysfunction baseline uses a walker -Chronic elevation right hemidiaphragm -Hypothyroidism Synthroid -Hypertension Lopressor -Hyperlipidemia vytorin -Coronary artery disease prior PCI in 1999 Plavix, Lopressor - depression, Zoloft -Severe cognitive impairment secondary to Alzheimer Dementia: Progressive Namenda -DO NOT RESUSCITATE Advance care planning: [05/15/2024. This was done with the patient and the at the bedside. As patient's presentations acute. This point patient does not want hospice. Which may be appropriate at this point. Discussed with her that that may be appropriate down the road. Patient otherwise eating well. Was to get back to therapy. This point patient to remain DO NOT RESUSCITATE. is the decision maker. Time spent about 25 minutes Pending authorization. Other medications to continue. Pending return to rehab Past Medical History Past Medical History: Coronary Artery Disease (CAD), Cancer, Dementia, Hyperlipidemia, Hypertension, Memory Impairment, Myocardial Infarction ([place]), Pneumonia, Thyroid Disorder Additional Past Medical History / Comment(s): Skin cancer on Left ear, altimers Last Myocardial Infarction Date:: 10/1999 History of Any Multi-Drug Resistant Organisms: None Reported Past Surgical History: Heart Catheterization With Stent Additional Past Surgical History / Comment(s): 3 stents placed in 10/1999 Past Anesthesia/Blood Transfusion Reactions: No Reported Reaction Date of Last Stent Placement:: 10/1999 Past Psychological History: Depression Smoking Status: Never smoker Past Alcohol Use History: None Reported Past Drug Use History: None Reported
[2023-06-18 12:31] VITALS: BP 119/58; PULSE 57; RESP 16; TEMP 98
--- NOTE | 2023-06-18 14:04 | P.DS ---
Providers Date of admission: 06/14/23 16:18 Expected date of discharge: 06/18/23 Attending physician: Humberto Caro Primary care physician: Marlon Umana [facility] Course: Chief Complaint: unresponsive This is a pleasant 77 years old male with multiple medical problems , follows with Dr. Umana. Currently at rehab at [facility]. She recently in the hospital around [place]. With recurrent falls. Sent to rehab. Patient was sent in from the F as he was found to be unresponsive. Patient is started use a walker and wheelchair that. Patient appetite is down according to the . He is a DO NOT RESUSCITATE. She does inform me that somebody talk to her her about possible hospice. They're not ready for the same. Fever and chills. Patient able to hold a simple conversation. On home oxygen 4 L 06/16/2023: doing much better. Tolerating a diet. Tired. Creatinine coming down. Plan to return to [facility]. 06/17/2023: Pending authorization to go back to rehab. Feeling better. Spoke to the hospice nurse. No hospice at the present time. Maybe down the road. Eating about 50-75%. In by physical therapy. Able to stand for 15 seconds before requiring to sit down. June 18, 2023: Laying in bed. Comfortable. No new issues. Has received authorization. Oral intake fair. Will return to rehab. Discussion and discharge planning more than 35 minutes Past medical history to include: COPD, dementia, hypertension, hyperlipidemia, hypothyroid, skin cancer left ear, CAD with stent, depression Social history: Nonsmoker. . Currently at rehab Physical examination: VITAL SIGNS: 98, 57, 16, 119 x 58, 97% - 4 L GENERAL: Laying in bed, comfortable EYES: Pupils equal. Conjunctiva normal. HEENT: External appearance of nose and ears normal, oral cavity grossly normal. NECK: JVD not raised; masses not palpable. HEART: First and second heart sounds are normal; no edema. LUNGS: Respiratory rate normal; diminished breath sounds. ABDOMEN: Soft, nontender, liver spleen not palpable, no masses palpable. PSYCH: Answering simple conversation. MUSCULOSKELETAL:No Clubbing/cyanosis;muscles-grossly intact. OA INVESTIGATIONS, reviewed in the clinical context: June 16: Potassium 4.8 BUN 32 creatinine 1.07 June 15: Creatinine 1.6 June 14: White count 14 hemoglobin 12.2 sodium 136 potassium 5.3 BUN 56 creatinine 2.21 EKG tracing personally reviewed by me-normal sinus rhythm. Incomplete right bundle branch block. Nonspecific ST/T-wave changes. Chest x-ray film personally reviewed by me-portable. No obvious infiltrates Previous labs 05/20/2023: BUN 20 creatinine 1.04 Assessment and Plan : -episodes of unresponsiveness. Likely metabolic encephalopathy from worsening renal failure. Decreased oral intake.: Improved -Acute kidney injury combination of prerenal and ATN. Improved Creatinine on May 20 was 1.04. On admission 2.21 Stop Zestril. IV fluids. -Recent acute on chronic medical debility. PT OT at [facility]. -Chronic gait dysfunction baseline uses a walker -Chronic elevation right hemidiaphragm -Hypothyroidism Synthroid -Hypertension Lopressor -Hyperlipidemia vytorin -Coronary artery disease prior PCI in 1999 Plavix, Lopressor - depression, Zoloft -Severe cognitive impairment secondary to Alzheimer Dementia: Progressive Namenda -DO NOT RESUSCITATE Advance care planning: [05/15/2024. This was done with the patient and the at the bedside. As patient's presentations acute. This point patient does not want hospice. Which may be appropriate at this point. Discussed with her that that may be appropriate down the road. Patient otherwise eating well. Was to get back to therapy. This point patient to remain DO NOT RESUSCITATE. is the decision maker. Time spent about 25 minutes Disposition: [facility] Past Medical History Past Medical History: Coronary Artery Disease (CAD), Cancer, Dementia, Hyperlipidemia, Hypertension, Memory Impairment, Myocardial Infarction ([place]), Pneumonia, Thyroid Disorder Additional Past Medical History / Comment(s): Skin cancer on Left ear, altimers Last Myocardial Infarction Date:: 10/1999 History of Any Multi-Drug Resistant Organisms: None Reported Past Surgical History: Heart Catheterization With Stent Additional Past Surgical History / Comment(s): 3 stents placed in 10/1999 Past Anesthesia/Blood Transfusion Reactions: No Reported Reaction Date of Last Stent Placement:: 10/1999 Past Psychological History: Depression Smoking Status: Never smoker Past Alcohol Use History: None Reported Past Drug Use History: None Reported Plan - Discharge Summary Discharge Rx Participant: No New Discharge Prescriptions: New Cefuroxime [Ceftin] 250 mg PO BID #10 tab Continue Sertraline [Zoloft] 100 mg PO HS Isosorbide Mononitrate ER [Imdur] 30 mg PO DAILY Clopidogrel [Plavix] 75 mg PO DAILY Ezetimibe/Simvastatin [Vytorin 10-40 mg Tablet] 1 tab PO HS Memantine [Namenda] 5 mg PO BID Famotidine [Pepcid] 20 mg PO DAILY tab Levothyroxine Sodium [Synthroid] 75 mcg PO DAILY Cyanocobalamin (Vitamin B-12) [Vitamin B-12] 1,000 mcg PO DAILY Metoprolol Tartrate [Lopressor] 25 mg PO BID Acetaminophen [Tylenol 8 Hour] 650 mg PO Q6H PRN PRN Reason: Pain Cholecalciferol [Vitamin D3 (25 Mcg = 1000 Iu)] 50 mcg PO DAILY tab Magnesium Hydroxide [Milk of Magnesia] 2,400 mg PO Q72H PRN PRN Reason: Constipation Discontinued lisinopriL [Zestril] 5 mg PO DAILY Discharge Medication List Clopidogrel [Plavix] 75 mg PO DAILY 04/17/16 [History] Ezetimibe/Simvastatin [Vytorin 10-40 mg Tablet] 1 tab PO HS 04/17/16 [History] Isosorbide Mononitrate ER [Imdur] 30 mg PO DAILY 04/17/16 [History] Sertraline [Zoloft] 100 mg PO HS 04/17/16 [History] Memantine [Namenda] 5 mg PO BID 03/16/22 [History] Cholecalciferol [Vitamin D3 (25 Mcg = 1000 Iu)] 50 mcg PO DAILY tab 03/24/22 [Rx] Famotidine [Pepcid] 20 mg PO DAILY tab 03/24/22 [Rx] Cyanocobalamin (Vitamin B-12) [Vitamin B-12] 1,000 mcg PO DAILY 05/20/23 [History] Levothyroxine Sodium [Synthroid] 75 mcg PO DAILY 05/20/23 [History] Acetaminophen [Tylenol 8 Hour] 650 mg PO Q6H PRN 06/14/23 [History] Magnesium Hydroxide [Milk of Magnesia] 2,400 mg PO Q72H PRN 06/14/23 [History] Metoprolol Tartrate [Lopressor] 25 mg PO BID 06/14/23 [History] Cefuroxime [Ceftin] 250 mg PO BID #10 tab 06/17/23 [Rx] Follow up Appointment(s)/Referral(s): Marlon Umana DO [Primary Care Provider] - 1-2 days
== END 2023-06-18 17:54 | DRG 682 ==
LOC: EC 13:59 → 5NMEDONC 16:18
PROVIDERS: ADMIT Hospitalist; ATTEND Hospitalist
DX: N17.0 Acute kidney failure with tubular necrosis (principal); G93.41 Metabolic encephalopathy; F02.C3 Dementia in other diseases classified elsewhere, severe, with mood disturbance; N39.0 Urinary tract infection, site not specified; J98.6 Disorders of diaphragm; G30.9 Alzheimer's disease, unspecified; E03.9 Hypothyroidism, unspecified; J44.9 Chronic obstructive pulmonary disease, unspecified; I10 Essential (primary) hypertension; Z66 Do not resuscitate; E86.0 Dehydration; I45.10 Unspecified right bundle-branch block; E78.5 Hyperlipidemia, unspecified; I25.10 Atherosclerotic heart disease of native coronary artery without angina pectoris; R53.81 Other malaise; R26.9 Unspecified abnormalities of gait and mobility; R55 Syncope and collapse; R29.6 Repeated falls; Z95.5 Presence of coronary angioplasty implant and graft; I25.2 Old myocardial infarction; Z85.828 Personal history of other malignant neoplasm of skin; Z79.02 Long term (current) use of antithrombotics/antiplatelets; Z79.890 Hormone replacement therapy; Z79.899 Other long term (current) drug therapy; Z88.0 Allergy status to penicillin; Z91.81 History of falling
CPT/HCPCS: 36415; 71045; 80048; 80053; 81001; 83605; 83735; 83880; 84100; 84484; 85025; 85610; 85730; 93005; 94760; 96361; 96365; 99291

== ENCOUNTER 2023-07-22 12:15 | Emergency (ER) | payer MEDICARE ==
--- NOTE | 2023-07-22 12:35 | ED ---
General Adult HPI - General Stated complaint: Fall Time Seen by Provider: 07/22/23 12:28 Source: patient, RN notes reviewed Mode of arrival: EMS Limitations: altered mental status - History of Present Illness Initial comments: Patient is a pleasant 77-year-old male present to the emergency department with weakness. Onset is unclear. Patient states he had a fall today. Patient states he feels weak all over. No isolated area of weakness. Patient denies any new confusion. Patient states he does not normally know what year it is because of history of dementia. Patient denies any injury. No headache. No neck or back pain. No chest pain or dyspnea. No abdominal pain. - Related Data Home Medications Medication Instructions Recorded Confirmed Clopidogrel [Plavix] 75 mg PO DAILY 04/17/16 07/22/23 Ezetimibe/Simvastatin [Vytorin 1 tab PO HS 04/17/16 07/22/23 10-40 mg Tablet] Isosorbide Mononitrate ER [Imdur] 30 mg PO DAILY 04/17/16 07/22/23 Sertraline [Zoloft] 50 mg PO DAILY 04/17/16 07/22/23 Memantine [Namenda] 5 mg PO BID 03/16/22 07/22/23 Levothyroxine Sodium [Synthroid] 75 mcg PO DAILY 05/20/23 07/22/23 Metoprolol Tartrate [Lopressor] 25 mg PO DAILY 07/22/23 07/22/23 lisinopriL [Zestril] 5 mg PO DAILY 07/22/23 07/22/23 Allergies Allergy/AdvReac Type Severity Reaction Status Date / Time Penicillins AdvReac Nausea & Verified 06/14/23 16:05 Vomiting Review of Systems ROS Statement: Those systems with pertinent positive or pertinent negative responses have been documented in the HPI. ROS Other: All systems not noted in ROS Statement are negative. Constitutional: Denies: fever Eyes: Denies: eye pain ENT: Denies: ear pain Respiratory: Denies: cough Cardiovascular: Denies: chest pain Endocrine: Denies: fatigue Gastrointestinal: Denies: abdominal pain Genitourinary: Denies: dysuria Neurological: Reports: as per HPI Past Medical History Past Medical History: Coronary Artery Disease (CAD), Cancer, Dementia, Hyperlipidemia, Hypertension, Memory Impairment, Myocardial Infarction ([place]), Pneumonia, Thyroid Disorder Additional Past Medical History / Comment(s): Skin cancer on Left ear, altimers Last Myocardial Infarction Date:: 10/1999 History of Any Multi-Drug Resistant Organisms: None Reported Past Surgical History: Heart Catheterization With Stent Additional Past Surgical History / Comment(s): 3 stents placed in 10/1999 Past Anesthesia/Blood Transfusion Reactions: No Reported Reaction Date of Last Stent Placement:: 10/1999 Past Psychological History: Depression Smoking Status: Never smoker Past Alcohol Use History: None Reported Past Drug Use History: None Reported - Past Family History Father History Unknown: Yes General Exam Limitations: no limitations General appearance: alert, in no apparent distress Head exam: Present: atraumatic, normocephalic Eye exam: Present: normal appearance, PERRL, EOMI ENT exam: Present: normal oropharynx Neck exam: Present: normal inspection. Absent: tenderness Respiratory exam: Present: normal lung sounds bilaterally Cardiovascular Exam: Present: regular rate, normal rhythm GI/Abdominal exam: Present: soft. Absent: tenderness Extremities exam: Present: normal inspection, full ROM. Absent: tenderness Neurological exam: Present: alert, CN II-XII intact. Absent: motor sensory deficit Expanded Neurological exam: Present: protecting the airway Patient oriented to: Present: person, place. Absent: time Speech: Present: fluid speech Cranial nerves: EOM's Intact: Normal Motor strength exam: RUE: 5, LUE: 5, RLE: 5, LLE: 5 Eye Response: (4) open spontaneously Motor Response: (6) obeys commands Verbal Response: (4) confused conversation Psychiatric exam: Present: normal affect, normal mood Skin exam: Present: abrasion (Left wrist) Course Vital Signs 07/22/23 07/22/23 12:22 13:35 Temperature 99 F 98.6 F Pulse Rate 82 80 Respiratory 18 14 Rate Blood Pressure 112/72 107/76 O2 Sat by Pulse 91 L 93 L Oximetry EKG Findings - EKG Results: EKG: interpreted by ERMD (Q wave V1 V2. Inferior Q waves.), sinus rhythm, normal axis, normal ST/T Medical Decision Making - Medical Decision Making Was pt. sent in by a medical professional or institution (, PA, FILLER BLOCK INSERTER REMOVER, urgent care, hospital, or retirement...) When possible be specific @ -No Did you speak to anyone other than the patient for history (EMS, parent, family, police, friend...)? What history was obtained from this source @ - arrives later and provides additional history the patient is able to get around the house on the smooth floor. Did you review nursing and triage notes (agree or disagree)? Why? @ -I reviewed and agree with nursing and triage notes Were old charts reviewed (outside hosp., previous admission, EMS record, old EKG, old radiological studies, urgent care reports/EKG's, retirement records)? Report findings @ -Previous x-ray reviewed Differential Diagnosis (chest pain, altered mental status, abdominal pain women, abdominal pain men, vaginal bleeding, weakness, fever, dyspnea, syncope, headache, dizziness, GI bleed, back pain, seizure, CVA, palpatations, mental health, musculoskeletal)? @ -Differential Weakness: Hypoglycemia, shock, sepsis, hyponatremia, anemia, infection, [place], ETOH, adverse medicine reaction, overdose, stroke, this is not meant to be an all-inclusive list. EKG interpreted by me (3pts min.). @ -As above X-rays interpreted by me (1pt min.). @ -Chest x-ray hypoinflated CT interpreted by me (1pt min.). @ -CT brain without acute U/S interpreted by me (1pt. min.). @ -None done What testing was considered but not performed or refused? (CT, X-rays, U/S, labs)? Why? @ -None What meds were considered but not given or refused? Why? @ -None Did you discuss the management of the patient with other professionals (professionals i.e. , PA, FILLER BLOCK INSERTER REMOVER, lab, RT, psych nurse, social worker assistant, pipeline dispatch operator, teacher, hospital chief executive officer, disability case manager)? Give summary @ -Case discussed with nurse Briones who will help set up outpatient follow- up Was smoking cessation discussed for >3mins.? @ -No Was critical care preformed (if so, how long)? @ -No Were there social determinants of health that impacted care today? How? (Homelessness, low income, unemployed, alcoholism, drug addiction, transportatio n, low edu. Level, literacy, decrease access to med. care, usp, rehab)? @ -No Was there de-escalation of care discussed even if they declined (Discuss DNR or withdrawal of care, Hospice)? DNR status @ -No What co-morbidities impacted this encounter? (DM, HTN, Smoking, COPD, CAD, Cancer, CVA, ARF, Chemo, Hep., AIDS, mental health diagnosis, sleep apnea, morbid obesity)? @ -None Was patient admitted / discharged? Hospital course, mention meds given and route, prescriptions, significant lab abnormalities, going to OR and other pertinent info. @ -Patient reevaluated. Patient and family are updated. Patient is able to get around the house somewhat. Family states they have contacted and tried to appeal for longer retirement stay however patient does not qualify for this. They will attempt additional help at home. Undiagnosed new problem with uncertain prognosis? @ -No Drug Therapy requiring intensive monitoring for toxicity (Heparin, Nitro, Insulin, Cardizem)? @ -No Were any procedures done? @ -No Diagnosis/symptom? @ -Weakness Acute, or Chronic, or Acute on Chronic? @ -Acute on chronic Uncomplicated (without systemic symptoms) or Complicated (systemic symptoms)? @ -Default Side effects of treatment? @ -No Exacerbation, Progression, or Severe Exacerbation? @ -No Poses a threat to life or bodily function? How? (Chest pain, [place], [place], pneumonia, PE, COPD, DKA, ARF, appy, cholecystitis, CVA, Diverticulitis, Homicidal, Suicidal, threat to staff... and all critical care pts) @ -No - Lab Data Result diagrams: 07/22/23 12:58 07/22/23 12:58 Lab Results 07/22/23 07/22/23 07/22/23 Range/Units 12:58 12:58 12:58 WBC 8.7 (3.8-10.6) k/uL RBC 4.58 (4.30-5.90) m/uL Hgb 13.5 (13.0-17.5) gm/dL Hct 43.0 (39.0-53.0) % MCV 93.8 (80.0-100.0) fL MCH 29.4 (25.0-35.0) pg MCHC 31.4 (31.0-37.0) g/dL RDW 16.2 H (11.5-15.5) % Plt Count 245 (150-450) k/uL MPV 7.9 Neutrophils % 81 % Lymphocytes % 8 % Monocytes % 7 % Eosinophils % 1 % Basophils % 1 % Neutrophils # 7.1 (1.3-7.7) k/uL Lymphocytes # 0.7 L (1.0-4.8) k/uL Monocytes # 0.6 (0-1.0) k/uL Eosinophils # 0.1 (0-0.7) k/uL Basophils # 0.1 (0-0.2) k/uL Hypochromasia Slight Anisocytosis Slight PT 11.0 (10.0-12.5) sec INR 1.0 (<1.2) APTT 25.5 (22.0-30.0) sec Sodium (137-145) mmol/L Potassium (3.5-5.1) mmol/L Chloride (98-107) mmol/L Carbon Dioxide (22-30) mmol/L Anion Gap mmol/L BUN (9-20) mg/dL Creatinine (0.66-1.25) mg/dL Est GFR (CKD-EPI)AfAm (>60 ml/min/1.73 sqM) Est GFR (CKD-EPI)NonAf (>60 ml/min/1.73 sqM) Glucose (74-99) mg/dL Lactic Ac Sepsis Rflx Plasma Lactic Acid Eddie (0.7-2.0) mmol/L Calcium (8.4-10.2) mg/dL Magnesium (1.6-2.3) mg/dL Total Bilirubin (0.2-1.3) mg/dL AST (17-59) U/L ALT (4-49) U/L Alkaline Phosphatase (38-126) U/L Troponin I (0.000-0.034) ng/mL NT-Pro-B Natriuret Pep pg/mL Total Protein (6.3-8.2) g/dL Albumin (3.5-5.0) g/dL TSH (0.465-4.680) mIU/L Urine Color Yellow Urine Appearance Clear (Clear) Urine pH 7.0 (5.0-8.0) Ur Specific [place] 1.015 (1.001-1.035) Urine Protein Negative (Negative) Urine Glucose (UA) Negative (Negative) Urine Ketones Negative (Negative) Urine Blood Negative (Negative) Urine Nitrite Negative (Negative) Urine Bilirubin Negative (Negative) Urine Urobilinogen 3.0 (<2.0) mg/dL Ur Leukocyte Esterase Negative (Negative) 07/22/23 07/22/23 07/22/23 Range/Units 12:58 12:58 12:58 WBC (3.8-10.6) k/uL RBC (4.30-5.90) m/uL Hgb (13.0-17.5) gm/dL Hct (39.0-53.0) % MCV (80.0-100.0) fL MCH (25.0-35.0) pg MCHC (31.0-37.0) g/dL RDW (11.5-15.5) % Plt Count (150-450) k/uL MPV Neutrophils % % Lymphocytes % % Monocytes % % Eosinophils % % Basophils % % Neutrophils # (1.3-7.7) k/uL Lymphocytes # (1.0-4.8) k/uL Monocytes # (0-1.0) k/uL Eosinophils # (0-0.7) k/uL Basophils # (0-0.2) k/uL Hypochromasia Anisocytosis PT (10.0-12.5) sec INR (<1.2) APTT (22.0-30.0) sec Sodium 139 (137-145) mmol/L Potassium 5.2 H (3.5-5.1) mmol/L Chloride 107 (98-107) mmol/L Carbon Dioxide 25 (22-30) mmol/L Anion Gap 7 mmol/L BUN 20 (9-20) mg/dL Creatinine 1.03 (0.66-1.25) mg/dL Est GFR (CKD-EPI)AfAm 80 (>60 ml/min/1.73 sqM) Est GFR (CKD-EPI)NonAf 70 (>60 ml/min/1.73 sqM) Glucose 104 H (74-99) mg/dL Lactic Ac Sepsis Rflx Plasma Lactic Acid Eddie 2.1 H* (0.7-2.0) mmol/L Calcium 8.5 (8.4-10.2) mg/dL Magnesium 2.1 (1.6-2.3) mg/dL Total Bilirubin 1.2 (0.2-1.3) mg/dL AST 47 (17-59) U/L ALT 18 (4-49) U/L Alkaline Phosphatase 76 (38-126) U/L Troponin I <0.012 (0.000-0.034) ng/mL NT-Pro-B Natriuret Pep pg/mL Total Protein 6.5 (6.3-8.2) g/dL Albumin 3.2 L (3.5-5.0) g/dL TSH 2.480 (0.465-4.680) mIU/L Urine Color Urine Appearance (Clear) Urine pH (5.0-8.0) Ur Specific [place] (1.001-1.035) Urine Protein (Negative) Urine Glucose (UA) (Negative) Urine Ketones (Negative) Urine Blood (Negative) Urine Nitrite (Negative) Urine Bilirubin (Negative) Urine Urobilinogen (<2.0) mg/dL Ur Leukocyte Esterase (Negative) 07/22/23 07/22/23 Range/Units 13:28 14:45 WBC (3.8-10.6) k/uL RBC (4.30-5.90) m/uL Hgb (13.0-17.5) gm/dL Hct (39.0-53.0) % MCV (80.0-100.0) fL MCH (25.0-35.0) pg MCHC (31.0-37.0) g/dL RDW (11.5-15.5) % Plt Count (150-450) k/uL MPV Neutrophils % % Lymphocytes % % Monocytes % % Eosinophils % % Basophils % % Neutrophils # (1.3-7.7) k/uL Lymphocytes # (1.0-4.8) k/uL Monocytes # (0-1.0) k/uL Eosinophils # (0-0.7) k/uL Basophils # (0-0.2) k/uL Hypochromasia Anisocytosis PT (10.0-12.5) sec INR (<1.2) APTT (22.0-30.0) sec Sodium (137-145) mmol/L Potassium (3.5-5.1) mmol/L Chloride (98-107) mmol/L Carbon Dioxide (22-30) mmol/L Anion Gap mmol/L BUN (9-20) mg/dL Creatinine (0.66-1.25) mg/dL Est GFR (CKD-EPI)AfAm (>60 ml/min/1.73 sqM) Est GFR (CKD-EPI)NonAf (>60 ml/min/1.73 sqM) Glucose (74-99) mg/dL Lactic Ac Sepsis Rflx Y Plasma Lactic Acid Eddie (0.7-2.0) mmol/L Calcium (8.4-10.2) mg/dL Magnesium (1.6-2.3) mg/dL Total Bilirubin (0.2-1.3) mg/dL AST (17-59) U/L ALT (4-49) U/L Alkaline Phosphatase (38-126) U/L Troponin I (0.000-0.034) ng/mL NT-Pro-B Natriuret Pep 1280 pg/mL Total Protein (6.3-8.2) g/dL Albumin (3.5-5.0) g/dL TSH (0.465-4.680) mIU/L Urine Color Urine Appearance (Clear) Urine pH (5.0-8.0) Ur Specific [place] (1.001-1.035) Urine Protein (Negative) Urine Glucose (UA) (Negative) Urine Ketones (Negative) Urine Blood (Negative) Urine Nitrite (Negative) Urine Bilirubin (Negative) Urine Urobilinogen (<2.0) mg/dL Ur Leukocyte Esterase (Negative) Disposition Clinical Impression: Weakness, Fall Disposition: HOME SELF-CARE Condition: Stable Instructions (If sedation given, give patient instructions): Fall Prevention for Older Adults (ED) Additional Instructions: Please do follow-up with your primary care physician in the next day or 2 for recheck. Return for increased falls, injury, isolated area of weakness, confusion, worsening or changing symptoms or other concerns. Is patient prescribed a controlled substance at d/c from ED?: No Referrals: Marlon Umana DO [Primary Care Provider] - 1-2 days [facility] Ortiz,Home Care [NON-STAFF] - Forms: [facility] Time of Disposition: 15:44
[2023-07-22 13:12] LABS: Anisocytosis Slight; Basophils # (A) 0.1 k/uL (0-0.2); Basophils % (A) 1 %; Eosinophils # (A) 0.1 k/uL (0-0.7); Eosinophils % (A) 1 %; HGB 13.5 gm/dL (13.0-17.5); Hypochromasia Slight; Lymphocytes # (A) 0.7 k/uL (1.0-4.8); Lymphocytes % (A) 8 %; MCH 29.4 pg (25.0-35.0); MCHC 31.4 g/dL (31.0-37.0); MCV 93.8 fL (80.0-100.0); Mean Platelet Volume 7.9; Monocytes # (A) 0.6 k/uL (0-1.0); Monocytes % (A) 7 %; Neutrophils # (A) 7.1 k/uL (1.3-7.7); Neutrophils % (A) 81 %; Platelet Count 245 k/uL (150-450); RBC 4.58 m/uL (4.30-5.90); RDW 16.2 % (11.5-15.5); WBC 8.7 k/uL (3.8-10.6)
[2023-07-22] MEDS: DIPH,PERTUS(ACELL)TETVAC-LF 0.5 ML VIAL IM ONE (13:13)
[2023-07-22 13:21] LABS: ALT 18 U/L (4-49); African American GFR (CKD) 80 (>60 ml/min/1.73 sqM); Albumin 3.2 g/dL (3.5-5.0); Anion Gap 7 mmol/L; Blood Urea Nitrogen 20 mg/dL (9-20); Carbon Dioxide 25 mmol/L (22-30); Chloride 107 mmol/L (98-107); Glucose 104 mg/dL (74-99); Magnesium 2.1 mg/dL (1.6-2.3); Non-African American GFR(CKD) 70 (>60 ml/min/1.73 sqM); Sodium 139 mmol/L (137-145); Total Bilirubin 1.2 mg/dL (0.2-1.3)
--- NOTE | 2023-07-22 13:21 | CT ---
EXAMINATION TYPE: CT brain wo con DATE OF EXAM: 07/22/2023 COMPARISON: 05/20/2023 HISTORY: 77-year-old male weakness, fall, dementia TECHNIQUE: Examination was done in axial plane without intravenous contrast. Coronal and sagittal r econstructions performed. CT DLP: 1271.4 mGycm Automated exposure control for dose reduction was used. FINDINGS: There is no evidence of acute intracranial hemorrhage, acute ischemic changes, mass, mass-effect, or extra-axial fluid collection. There is no effacement of cerebral sulci or basal subarachnoid cister ns. There is [id number] ventriculomegaly, slightly asymmetrically greater left more so than right w ith Steinberg ratio calculated at 0.35, unchanged. There is no midline shift. Balderas-white matter distinction is preserved. Moderate patchy and confluent white matter hypodensities posterior hemispheres. Atherosclerotic calci fications throughout the carotid siphons Moderate mucosal thickening ethmoid air cells and left maxillary sinus along with air-fluid level lef t maxillary sinus. Leftward nasal septal deviation. Orbits and globes are intact. IMPRESSION: 1. Similar ventriculomegaly. This may be due to central cerebral atrophy. Correlate with patient's sy mptoms to exclude a component of NPH. 2. Moderate burden of chronic small vessel ischemic disease. No acute intracranial abnormality seen. 3. Correlate for acute on chronic left maxillary sinusitis.
[2023-07-22 13:27] LABS: Calcium 8.5 mg/dL (8.4-10.2); Potassium 5.2 mmol/L (3.5-5.1)
[2023-07-22 13:28] LABS: AST 47 U/L (17-59); Alkaline Phosphatase 76 U/L (38-126); Total Protein 6.5 g/dL (6.3-8.2)
--- NOTE | 2023-07-22 13:29 | XR ---
EXAMINATION TYPE: XR chest 2V DATE OF EXAM: 07/22/2023 1:12 PM CLINICAL INDICATION:Male, 77 years old with history of Weakness; [facility] COMPARISON: Chest radiographs from 06/14/2023 TECHNIQUE: XR chest 2V Frontal and lateral views of the chest. FINDINGS: Lungs/Pleura: There is no evidence of pleural effusion, focal consolidation, or pneumothorax. Pulmonary vascularity: Unremarkable. Heart/mediastinum: Cardiac size is normal. Atherosclerotic calcifications are seen in the aorta. Musculoskeletal: No acute osseous pathology. IMPRESSION: Low lung volumes with a generalized hazy appearance which could represent atelectasis versus pulmonar y edema correlate with serum BNP.
[2023-07-22 13:30] LABS: Partial Thromboplastin Time 25.5 sec (22.0-30.0)
[2023-07-22 14:22] LABS: Appearance,Urine Clear (Clear); Bilirubin,Urine Negative (Negative); Blood,Urine Negative (Negative); Color,Urine Yellow; Glucose,Urine (UA) Negative (Negative); Ketones,Urine Negative (Negative); Leukocyte Esterase,Urine Negative (Negative); Nitrite,Urine Negative (Negative); Protein,Urine Negative (Negative); Specific Gravity,Urine 1.015 (1.001-1.035)
[2023-07-22 17:08] VITALS: BP 115/78; PULSE 75; RESP 18; TEMP 97.8
== END 2023-07-22 17:00 | disposition home or self-care (01) ==
LOC: EC 12:15
DX: Z04.3 Encounter for examination and observation following other accident (principal); R53.1 Weakness; I67.82 Cerebral ischemia; I25.10 Atherosclerotic heart disease of native coronary artery without angina pectoris; I10 Essential (primary) hypertension; I25.2 Old myocardial infarction; E07.9 Disorder of thyroid, unspecified; F32.A Depression, unspecified; Z79.890 Hormone replacement therapy; Z79.899 Other long term (current) drug therapy; Z79.01 Long term (current) use of anticoagulants; Z88.0 Allergy status to penicillin; Z79.02 Long term (current) use of antithrombotics/antiplatelets; Z23 Encounter for immunization; W18.30XA Fall on same level, unspecified, initial encounter
CPT/HCPCS: 36415; 70450; 71046; 80053; 81003; 83605; 83735; 83880; 84443; 84484; 85025; 85610; 85730; 90471; 90715; 93005; 99285

== ENCOUNTER 2024-03-11 10:35 | Inpatient (IN) | payer MEDICARE, OTHER ==
[2024-03-11] MEDS: ATROPINE SULFATE 0.1 MG/ML 10ML SYRINGE IV STA (10:52)
[2024-03-11] MEDS: SODIUM CHLORIDE 0.9% 1,000 ML IV STA (10:52)
[2024-03-11 10:59] LABS: Basophils % (A) 0 %; Eosinophils # (A) 0.1 k/uL (0-0.7); Eosinophils % (A) 1 %; HGB 12.5 gm/dL (13.0-17.5); Hypochromasia Moderate; Lymphocytes # (A) 1.9 k/uL (1.0-4.8); Lymphocytes % (A) 15 %; MCH 29.8 pg (25.0-35.0); MCHC 31.2 g/dL (31.0-37.0); MCV 95.6 fL (80.0-100.0); Mean Platelet Volume 7.2; Monocytes # (A) 1.3 k/uL (0-1.0); Monocytes % (A) 10 %; Neutrophils # (A) 8.9 k/uL (1.3-7.7); Neutrophils % (A) 71 %; Platelet Count 300 k/uL (150-450); RBC 4.18 m/uL (4.30-5.90); RDW 14.5 % (11.5-15.5); WBC 12.6 k/uL (3.8-10.6)
[2024-03-11] MEDS: DOPamine DRIP 800 MG in DEXTROSE/WATER 1 250ML.BAG IV ONE (11:02)
--- NOTE | 2024-03-11 11:06 | XR ---
EXAMINATION TYPE: XR chest 1V portable DATE OF EXAM: 03/11/2024 COMPARISON: 07/22/2023 HISTORY: Shortness of breath TECHNIQUE: Single frontal view of the chest is obtained. FINDINGS: Elevated right hemidiaphragm with right basilar infiltrate. Osteopenia. Arthropathy of the shoulder. Degenerative changes of the spine. Atherosclerotic change aorta. IMPRESSION: Right basilar atelectasis or early pneumonia. [facility], , 03/11/2024 11:04 AM
[2024-03-11 11:17] LABS: ALT 26 U/L (4-49); AST 28 U/L (17-59); African American GFR (CKD) 60 (>60 ml/min/1.73 sqM); Albumin 2.9 g/dL (3.5-5.0); Alkaline Phosphatase 50 U/L (38-126); Anion Gap 6 mmol/L; Blood Urea Nitrogen 49 mg/dL (9-20); Calcium 8.1 mg/dL (8.4-10.2); Carbon Dioxide 26 mmol/L (22-30); Chloride 109 mmol/L (98-107); Glucose 94 mg/dL (74-99); Magnesium 2.2 mg/dL (1.6-2.3); Non-African American GFR(CKD) 52 (>60 ml/min/1.73 sqM); Potassium 4.6 mmol/L (3.5-5.1); Sodium 141 mmol/L (137-145); Total Bilirubin 0.4 mg/dL (0.2-1.3); Total Protein 5.4 g/dL (6.3-8.2)
[2024-03-11 11:22] LABS: Prothrombin Time 10.9 sec (10.0-12.5)
[2024-03-11] MEDS ORDERED: NALOXONE 0.4 MG/ML 1 ML VIAL IV PRN (12:00)
--- NOTE | 2024-03-11 12:02 | ED ---
General Adult HPI - General Chief complaint: Arrhythmia/Palpitations Stated complaint: cardia Time Seen by Provider: 03/11/24 10:40 Source: patient, family, EMS, RN notes reviewed, old records reviewed Mode of arrival: EMS Limitations: altered mental status - History of Present Illness Initial comments: Patient is a 78-year-old male who presents emergency department for what appears to be third-degree heart block. Patient was at his nursing facility when they were doing morning vitals and noticed that his heart rate was in the 20s and 30s . They held his metoprolol and sent him here for further evaluation. He is a poor historian. Denies any pain or symptoms. History of CAD, dementia, hypertension, hyperlipidemia. Patient does have cardiac stents. Denies chest pain, shortness of breath, [place] pain with nausea, vomiting, headaches. Patient received a total of 1 mg of atropine from EMS with no improvement of heart rate. Presents for further evaluation at this time. - Related Data Home Medications Medication Instructions Recorded Confirmed Clopidogrel [Plavix] 75 mg PO DAILY 04/17/16 03/11/24 Ezetimibe/Simvastatin [Vytorin 1 tab PO HS 04/17/16 03/11/24 10-40 mg Tablet] Isosorbide Mononitrate ER [Imdur] 30 mg PO DAILY 04/17/16 03/11/24 Sertraline [Zoloft] 100 mg PO HS 04/17/16 03/11/24 Levothyroxine Sodium [Synthroid] 75 mcg PO DAILY 05/20/23 03/11/24 Metoprolol Tartrate [Lopressor] 25 mg PO DAILY 07/22/23 03/11/24 Albuterol Nebulized [Ventolin 2.5 mg INHALATION RT-Q6H PRN 03/11/24 03/11/24 Nebulized] Albuterol Sulfate [Ventolin HFA] 2 puff INHALATION RT-Q6H PRN 03/11/24 03/11/24 Ammonium Lactate Lotion 1 applic TOPICAL BID 03/11/24 03/11/24 [Lac-Hydrin 12% Lotion] Ascorbic Acid [Vitamin C] 500 mg PO DAILY 03/11/24 03/11/24 Budesonide [Pulmicort] 1 mg INHALATION RT-DAILY@0500 03/11/24 03/11/24 Cholecalciferol [Vitamin D3 (25 25 mcg PO DAILY 03/11/24 03/11/24 Mcg = 1000 Iu)] Cyanocobalamin (Vitamin B-12) 1,000 mcg PO DAILY 03/11/24 03/11/24 [Vitamin B-12] Famotidine [Pepcid] 20 mg PO DAILY 03/11/24 03/11/24 Magnesium Hydroxide [Milk of 2,400 mg PO DAILY PRN 03/11/24 03/11/24 Magnesia] lisinopriL [Zestril] 5 mg PO HS 03/11/24 03/11/24 Allergies Allergy/AdvReac Type Severity Reaction Status Date / Time Penicillins AdvReac Nausea & Verified 03/11/24 11:12 Vomiting Review of Systems ROS Statement: Those systems with pertinent positive or pertinent negative responses have been documented in the HPI. Review of Systems: CONST: Denies fever EYES: Denies blurry vision ENT: Denies nasal congestion C/V: Denies Chest pain RESP: Denies shortness of breath GI: Denies abdominal pain : Denies dysuria SKIN: Denies rash. MSK: Denies joint pain. NEURO: Denies headache ROS Other: All systems not noted in ROS Statement are negative. Past Medical History Past Medical History: Coronary Artery Disease (CAD), Cancer, Dementia, Hyperlipidemia, Hypertension, Memory Impairment, Myocardial Infarction ([place]), Pneumonia, Thyroid Disorder Additional Past Medical History / Comment(s): Skin cancer on Left ear, [facility] Last Myocardial Infarction Date:: 10/1999 History of Any Multi-Drug Resistant Organisms: None Reported Past Surgical History: Heart Catheterization With Stent Additional Past Surgical History / Comment(s): 3 stents placed in 10/1999 Past Anesthesia/Blood Transfusion Reactions: No Reported Reaction Date of Last Stent Placement:: 10/1999 Past Psychological History: Depression Smoking Status: Never smoker Past Alcohol Use History: None Reported Past Drug Use History: None Reported - Past Family History Father History Unknown: Yes General Exam - General Exam Comments Initial Comments: General: Appears in no acute distress. HEAD: Normal with no signs of head trauma. EYES: PERRLA, EOMI, conjunctiva normal, no discharge. ENT: Hearing grossly intact, normal oropharynx. RESPIRATORY: Clear breath sounds bilaterally. No wheezes, rales, or rhonchi. C/V: Bradycardic. S1 and S2 auscultated, no edema, peripheral pulses 2+ and intact throughout ABD: Abd is soft, nontender, nondistended EXT: Normal range of motion, no obvious deformity SKIN: No rashes or lesions observed on exposed skin. NEURO: Alert and oriented x 2 which is baseline. Limitations: altered mental status Course Vital Signs 03/11/24 03/11/24 03/11/24 10:36 10:43 11:05 Temperature 97.7 F Pulse Rate 28 L 27 L Pulse Rate [ 28 L Melt House Supervisor ] Respiratory 20 18 Rate Blood Pressure 131/63 105/54 O2 Sat by Pulse 100 96 Oximetry 03/11/24 03/11/24 03/11/24 11:36 11:37 11:40 Temperature Pulse Rate 29 L Pulse Rate [ Melt House Supervisor ] Respiratory 18 Rate Blood Pressure 125/56 O2 Sat by Pulse 85 L 94 L 97 Oximetry Medical Decision Making - Medical Decision Making Was pt. sent in by a medical professional or institution (, PA, MARKET RESEARCH ASSISTANT, urgent care, hospital, or prison...) When possible be specific @ -Transferred from his nursing facility for evaluation for bradycardia Did you speak to anyone other than the patient for history (EMS, parent, family, police, friend...)? What history was obtained from this source @ -Patient's , Rachael makes medical decisions for the patient. She is at bedside. Did you review nursing and triage notes (agree or disagree)? Why? @ -I reviewed and agree with nursing and triage notes Were old charts reviewed (outside hosp., previous admission, EMS record, old EKG, old radiological studies, urgent care reports/EKG's, prison records)? Report findings @ -No old charts were reviewed Differential Diagnosis (chest pain, altered mental status, abdominal pain women, abdominal pain men, vaginal bleeding, weakness, fever, dyspnea, syncope, headache, dizziness, GI bleed, back pain, seizure, CVA, palpatations, mental health, musculoskeletal)? @ -Third-degree AV block, second-degree AV block, bradycardia, electrolyte abnormality. This list is not all inclusive. EKG interpreted by me (3pts min.). @ -As above X-rays interpreted by me (1pt min.). @ -Chest x-ray shows atelectasis. CT interpreted by me (1pt min.). @ -None done U/S interpreted by me (1pt. min.). @ -None done What testing was considered but not performed or refused? (CT, X-rays, U/S, labs)? Why? @ -None What meds were considered but not given or refused? Why? @ -None Did you discuss the management of the patient with other professionals (professionals i.e. Dr., PA, MARKET RESEARCH ASSISTANT, lab, RT, psych nurse, pediatric social worker, typing office worker, teacher, safety and security officer, briefcase sewer)? Give summary @ -I discussed case with on-call cardiology, Dr. Funez who requested I discussed with the patient's family and who makes medical decisions. In the meantime, patient was placed on dopamine drip. Cardiology KATHLEEN La was present at bedside when we both discussed with the patient's Rachael risk and benefits involving the procedure. He ultimately, decision made to move forward with pacemaker placement. Patient taken to [facility] for pacemaker placement. Spoke with the admitting provider, Dr. Caro who accepted the admission. Was smoking cessation discussed for >3mins.? @ -No Was critical care preformed (if so, how long)? @ -No Were there social determinants of health that impacted care today? How? (Homelessness, low income, unemployed, alcoholism, drug addiction, transportation, low edu. Level, literacy, decrease access to med. care, fdc, rehab)? @ -No Was there de-escalation of care discussed even if they declined (Discuss DNR or withdrawal of care, Hospice)? DNR status @ -Patient is currently a DNR however per Rachael as well as patient, they would like the procedure completed. They will discuss with cardiology regarding the DNR status. What co-morbidities impacted this encounter? (DM, HTN, Smoking, COPD, CAD, Cancer, CVA, ARF, Chemo, Hep., AIDS, mental health diagnosis, sleep apnea, morbid obesity)? @ -None Was patient admitted / discharged? Hospital course, mention meds given and route, prescriptions, significant lab abnormalities, going to OR and other pertinent info. @ -Based on the patient's presentation and physical exam, presents with what appears to be third-degree AV block on EKG. We will obtain basic labs. He has no current symptoms at this time. I did administer an additional dose of atropine at 0.5 mg with no significant effect. Vitals otherwise within acceptable limits. No hypotension. I discussed case with on-call cardiology, Dr. Funez who requested I discussed with the patient's family and who makes medical decisions. In the m eantime, patient was placed on dopamine drip. Cardiology KATHLEEN La was present at bedside when we both discussed with the patient's Rachael risk and benefits involving the procedure. He ultimately, decision made to move forward with pacemaker placement. Patient taken to [facility] for pacemaker placement. Laboratory studies returned after patient was taken to [facility], and remarkable for SHAUN. Spoke with the admitting provider, Dr. Caro who accepted the admission. Undiagnosed new problem with uncertain prognosis? @ -No Drug Therapy requiring intensive monitoring for toxicity (Heparin, Nitro, Insulin, Cardizem)? @ -No Were any procedures done? @ -No Diagnosis/symptom? @ -Third-degree AV block Acute, or Chronic, or Acute on Chronic? @ -Acute Uncomplicated (without systemic symptoms) or Complicated (systemic symptoms)? @ -Complicated Side effects of treatment? @ -No Exacerbation, Progression, or Severe Exacerbation? @ -No Poses a threat to life or bodily function? How? (Chest pain, [place], MA, pneumonia, PE, COPD, DKA, ARF, appy, cholecystitis, CVA, Diverticulitis, Homicidal, Suicidal, threat to staff... and all critical care pts) @ -Yes - Lab Data Result diagrams: 03/11/24 10:50 03/11/24 10:50 Lab Results 03/11/24 03/11/24 03/11/24 Range/Units 10:47 10:50 10:50 WBC 12.6 H (3.8-10.6) k/uL RBC 4.18 L (4.30-5.90) m/uL Hgb 12.5 L (13.0-17.5) gm/dL Hct 40.0 (39.0-53.0) % MCV 95.6 (80.0-100.0) fL MCH 29.8 (25.0-35.0) pg MCHC 31.2 (31.0-37.0) g/dL RDW 14.5 (11.5-15.5) % Plt Count 300 (150-450) k/uL MPV 7.2 Neutrophils % 71 % Lymphocytes % 15 % Monocytes % 10 % Eosinophils % 1 % Basophils % 0 % Neutrophils # 8.9 H (1.3-7.7) k/uL Lymphocytes # 1.9 (1.0-4.8) k/uL Monocytes # 1.3 H (0-1.0) k/uL Eosinophils # 0.1 (0-0.7) k/uL Basophils # 0.0 (0-0.2) k/uL Hypochromasia Moderate PT 10.9 (10.0-12.5) sec INR 1.0 (<1.2) APTT 22.8 (22.0-30.0) sec Sodium (137-145) mmol/L Potassium (3.5-5.1) mmol/L Chloride (98-107) mmol/L Carbon Dioxide (22-30) mmol/L Anion Gap mmol/L BUN (9-20) mg/dL Creatinine (0.66-1.25) mg/dL Est GFR (CKD-EPI)AfAm (>60 ml/min/1.73 sqM) Est GFR (CKD-EPI)NonAf (>60 ml/min/1.73 sqM) Glucose (74-99) mg/dL Calcium (8.4-10.2) mg/dL Magnesium (1.6-2.3) mg/dL Total Bilirubin (0.2-1.3) mg/dL AST (17-59) U/L ALT (4-49) U/L Alkaline Phosphatase (38-126) U/L Troponin I (0.000-0.034) ng/mL Total Protein (6.3-8.2) g/dL Albumin (3.5-5.0) g/dL TSH (0.465-4.680) mIU/L Urine Color Colorless Urine Appearance Clear (Clear) Urine pH 5.0 (5.0-8.0) Ur Specific [place] 1.013 (1.001-1.035) Urine Protein Negative (Negative) Urine Glucose (UA) Negative (Negative) Urine Ketones Negative (Negative) Urine Blood Negative (Negative) Urine Nitrite Negative (Negative) Urine Bilirubin Negative (Negative) Urine Urobilinogen <2.0 (<2.0) mg/dL Ur Leukocyte Esterase Negative (Negative) 03/11/24 03/11/24 Range/Units 10:50 10:50 WBC (3.8-10.6) k/uL RBC (4.30-5.90) m/uL Hgb (13.0-17.5) gm/dL Hct (39.0-53.0) % MCV (80.0-100.0) fL MCH (25.0-35.0) pg MCHC (31.0-37.0) g/dL RDW (11.5-15.5) % Plt Count (150-450) k/uL MPV Neutrophils % % Lymphocytes % % Monocytes % % Eosinophils % % Basophils % % Neutrophils # (1.3-7.7) k/uL Lymphocytes # (1.0-4.8) k/uL Monocytes # (0-1.0) k/uL Eosinophils # (0-0.7) k/uL Basophils # (0-0.2) k/uL Hypochromasia PT (10.0-12.5) sec INR (<1.2) APTT (22.0-30.0) sec Sodium 141 (137-145) mmol/L Potassium 4.6 (3.5-5.1) mmol/L Chloride 109 H (98-107) mmol/L Carbon Dioxide 26 (22-30) mmol/L Anion Gap 6 mmol/L BUN 49 H (9-20) mg/dL Creatinine 1.31 H (0.66-1.25) mg/dL Est GFR (CKD-EPI)AfAm 60 (>60 ml/min/1.73 sqM) Est GFR (CKD-EPI)NonAf 52 (>60 ml/min/1.73 sqM) Glucose 94 (74-99) mg/dL Calcium 8.1 L (8.4-10.2) mg/dL Magnesium 2.2 (1.6-2.3) mg/dL Total Bilirubin 0.4 (0.2-1.3) mg/dL AST 28 (17-59) U/L ALT 26 (4-49) U/L Alkaline Phosphatase 50 (38-126) U/L Troponin I 0.019 (0.000-0.034) ng/mL Total Protein 5.4 L (6.3-8.2) g/dL Albumin 2.9 L (3.5-5.0) g/dL TSH 3.000 (0.465-4.680) mIU/L Urine Color Urine Appearance (Clear) Urine pH (5.0-8.0) Ur Specific [place] (1.001-1.035) Urine Protein (Negative) Urine Glucose (UA) (Negative) Urine Ketones (Negative) Urine Blood (Negative) Urine Nitrite (Negative) Urine Bilirubin (Negative) Urine Urobilinogen (<2.0) mg/dL Ur Leukocyte Esterase (Negative) - EKG Data -: EKG Interpreted by Me EKG Comments: 12-lead Electrocardiogram Interpretation Note EKG was reviewed and interpreted by myself. 12-lead ECG performed at 1041 is interpreted by me as revealing bradycardia with third-degree AV block at a rate of 28 beats per minute. [place] is normal. QRS duration is 180 ms, QTc is 432 ms.. There were no ST or T wave abnormalities to suggest myocardial ischemia or injury. R wave progression across the precordium was satisfactory. By my interpretation this EKG is non-diagnostic for acute ischemia. Disposition Clinical Impression: Third degree heart block Disposition: ADMITTED IP TO THIS HOSP Condition: Serious Time of Disposition: 11:57
[2024-03-11] MEDS: MIDAZOLAM 2 MG/2 ML VIAL IVP ONE (12:13)
[2024-03-11] MEDS: LIDOCAINE 1% INJ 10MG/ML (20 ML MDV) SQ ONE (12:14)
[2024-03-11] MEDS: fentaNYL (PF) 50 MCG/1 ML VIAL IVP ONE (12:15)
[2024-03-11 12:25] LABS: Partial Thromboplastin Time 22.8 sec (22.0-30.0)
[2024-03-11 12:57] LABS: Glucose,Whole Blood 83 mg/dL (70-110)
--- NOTE | 2024-03-11 12:58 | P.CRDCN ---
History of Present Illness History of present illness: HISTORY OF PRESENT ILLNESS: This is a 78-year-old male with a past medical history significant for coronary artery disease with previous stenting, hypertension, hyperlipidemia, hypothyroi dism, and dementia. Patient follows in the office with Dr. Funez but has not been seen in the office since February 2022. We have been asked to see the patient in consultation for complete heart block. Patient examined at the bedside in the emergency room. Patient currently resides at [facility] secondary to advanced dementia. Apparently during morning rounds, staff noticed the patient to be bradycardic in the 30s when they were checking his vital signs. The patient was brought to the ER for further evaluation. Patient's spouse is at the bedside. The patient is awake and conversing and does not appear to be in any distress. The patient currently denies any chest pain or pressure. He denies any shortness of breath. He denies any dizziness or lightheadedness. He denies any episodes of syncope. The patient's states that he appears a little bit worse than his baseline and she states he is "talking slower than normal". The patient is currently a DNR. She states that the patient is nonambulatory and uses a wheelchair. DIAGNOSTICS: - EKG reveals complete heart block. - Chest xray right basilar atelectasis or early pneumonia - Laboratory data: WBC 12.6. Hemoglobin 12.5. Platelet count 300. Sodium 141. Potassium 4.6. BUN 49. Creatinine 1.31. Troponin 0.019. TSH 3.0. - Current home cardiac medications include lisinopril 5 mg at night, metoprolol tartrate 25 mg daily, Imdur 30 mg daily, Plavix 75 mg daily, Ezetimibe/simvastatin 10-40 mg at night - Patient underwent Lexiscan stress test in February 2022 revealing evidence of prior inferior wall myocardial infarction with mild LV dysfunction without any ischemia. Ejection fraction estimated at 46%. REVIEW OF SYSTEMS: At the time of my exam: CONSTITUTIONAL: Denies fever or chills. HEENT: Denies blurred vision, vision changes, or eye pain. Denies hemoptysis CARDIOVASCULAR: Denies chest pain. Denies orthopnea. Denies PND. Denies palpitations RESPIRATORY: Denies shortness of breath. GASTROINTESTINAL: Denies abdominal pain. Denies nausea or vomiting. HEMATOLOGIC: Denies bleeding disorders. GENITOURINARY: Denies any blood in urine. SKIN: Denies pruitis. Denies rash. PHYSICAL EXAM: VITAL SIGNS: Reviewed. GENERAL: Well-developed in no acute distress. HEENT: Head is normocephalic. Pupils are equal, round. Sclerae anicteric. Mucous membranes of the mouth are moist. Neck supple. No JVD or thyromegaly LUNGS: Respirations even and unlabored. Lungs essentially clear to auscultation bilaterally. HEART: Bradycardic. regular rate and rhythm. S1 and S2 heard. ABDOMEN: Soft. Nondistended. Nontender. EXTREMITIES: Normal range of motion. Peripheral pulses intact. No lower extremity edema. Patient's feet are cool to touch with cyanotic changes to his toes. NEUROLOGIC: Awake and alert. ASSESSMENT: Complete heart block Coronary artery disease with previous stenting to the RCA x 1999 Mild ischemic cardiomyopathy, EF 46% in 2021 History of hypertension History of hyperlipidemia Hypothyroidism History of dementia Nonambulatory, wheelchair-bound at baseline, per PLAN: Obtain 2D echo to assess cardiac structure and function Hold metoprolol Resume additional home cardiac medications Discontinue Plavix as patient has not had stenting within the past 12 months. Will add aspirin 81 mg daily Patient resides at [facility] and has a history of dementia. He is nonambulatory at baseline and uses a wheelchair. He is currently a DNR. In-depth conversation held at the bedside between patient and his regarding current findings and treatment options moving forward. Patient and his would like to proceed with temporary pacemaker insertion today followed by permanent pacemaker implantation tomorrow. Patient and his were both informed that patient's DNR would be reversed while he is undergoing procedures. They both verbalized understanding and agreed. Patient to undergo temporary transvenous pacemaker insertion today with Dr. Funez followed by permanent pacemaker implantation tomorrow with Dr. Mckeon N.p.o. at midnight Discontinue dopamine infusion Further recommendations pending patient course Nurse practitioner note has been reviewed by physician. Signing provider agrees with the documented findings, assessment, and plan of care documented by ELECTRO MECHANICAL DESIGNER as a scribe. Past Medical History Past Medical History: Coronary Artery Disease (CAD), Cancer, Dementia, Hyperlipidemia, Hypertension, Memory Impairment, Myocardial Infarction ([place]), Pneumonia, Thyroid Disorder Additional Past Medical History / Comment(s): Skin cancer on Left ear, alt[facility]ers Last Myocardial Infarction Date:: 10/1999 History of Any Multi-Drug Resistant Organisms: None Reported Past Surgical History: Heart Catheterization With Stent Additional Past Surgical History / Comment(s): 3 stents placed in 10/1999 Past Anesthesia/Blood Transfusion Reactions: No Reported Reaction Date of Last Stent Placement:: 10/1999 Past Psychological History: Depression Smoking Status: Never smoker Past Alcohol Use History: None Reported Past Drug Use History: None Reported - Past Family History Father History Unknown: Yes Medications and Allergies Home Medications Medication Instructions Recorded Confirmed Type Clopidogrel [Plavix] 75 mg PO DAILY 04/17/16 03/11/24 History Ezetimibe/Simvastatin [Vytorin 1 tab PO HS 04/17/16 03/11/24 History 10-40 mg Tablet] Isosorbide Mononitrate ER [Imdur] 30 mg PO DAILY 04/17/16 03/11/24 History Sertraline [Zoloft] 100 mg PO HS 04/17/16 03/11/24 History Levothyroxine Sodium [Synthroid] 75 mcg PO DAILY 05/20/23 03/11/24 History Metoprolol Tartrate [Lopressor] 25 mg PO DAILY 07/22/23 03/11/24 History Albuterol Nebulized [Ventolin 2.5 mg INHALATION RT-Q6H PRN 03/11/24 03/11/24 History Nebulized] Albuterol Sulfate [Ventolin HFA] 2 puff INHALATION RT-Q6H PRN 03/11/24 03/11/24 History Ammonium Lactate Lotion 1 applic TOPICAL BID 03/11/24 03/11/24 History [Lac-Hydrin 12% Lotion] Ascorbic Acid [Vitamin C] 500 mg PO DAILY 03/11/24 03/11/24 History Budesonide [Pulmicort] 1 mg INHALATION RT-DAILY@0500 03/11/24 03/11/24 History Cholecalciferol [Vitamin D3 (25 25 mcg PO DAILY 03/11/24 03/11/24 History Mcg = 1000 Iu)] Cyanocobalamin (Vitamin B-12) 1,000 mcg PO DAILY 03/11/24 03/11/24 History [Vitamin B-12] Famotidine [Pepcid] 20 mg PO DAILY 03/11/24 03/11/24 History Magnesium Hydroxide [Milk of 2,400 mg PO DAILY PRN 03/11/24 03/11/24 History Magnesia] lisinopriL [Zestril] 5 mg PO HS 03/11/24 03/11/24 History Allergies Allergy/AdvReac Type Severity Reaction Status Date / Time Penicillins AdvReac Nausea & Verified 03/11/24 11:12 Vomiting Physical Exam Vitals: Vital Signs Temp Pulse Pulse Resp BP Pulse Ox 03/11/24 11:40 29 L 18 125/56 97 03/11/24 11:37 94 L 03/11/24 11:36 85 L 03/11/24 11:05 27 L 18 105/54 96 03/11/24 10:43 28 L 03/11/24 10:36 97.7 F 28 L 20 131/63 100 Intake and Output 03/10/24 03/11/24 03/11/24 22:59 06:59 14:59 Other: Weight 86.183 kg Results 03/11/24 10:50 03/11/24 10:50 Cardiac Enzymes 03/11/24 03/11/24 Range/Units 10:50 10:50 AST 28 (17-59) U/L Troponin I 0.019 (0.000-0.034) ng/mL CBC 03/11/24 Range/Units 10:50 WBC 12.6 H (3.8-10.6) k/uL RBC 4.18 L (4.30-5.90) m/uL Hgb 12.5 L (13.0-17.5) gm/dL Hct 40.0 (39.0-53.0) % Plt Count 300 (150-450) k/uL Comprehensive Metabolic Panel 03/11/24 Range/Units 10:50 Sodium 141 (137-145) mmol/L Potassium 4.6 (3.5-5.1) mmol/L Chloride 109 H (98-107) mmol/L Carbon Dioxide 26 (22-30) mmol/L BUN 49 H (9-20) mg/dL Creatinine 1.31 H (0.66-1.25) mg/dL Glucose 94 (74-99) mg/dL Calcium 8.1 L (8.4-10.2) mg/dL AST 28 (17-59) U/L ALT 26 (4-49) U/L Alkaline Phosphatase 50 (38-126) U/L Total Protein 5.4 L (6.3-8.2) g/dL Albumin 2.9 L (3.5-5.0) g/dL Current Medications Generic Name Dose Route Start Last Admin Trade Name Freq PRN Reason Stop Dose Admin Dopamine HCl/Dextrose 800 mg/ 250 mls @ 4.848 mls/hr 03/11/24 10:53 03/11/24 11:02 IV Solution IV 03/12/24 10:52 3 mcg/kg/min .Q24H ONE 4.848 mls/hr Administration Protocol 3 MCG/KG/MIN Naloxone HCl 0.2 mg 03/11/24 12:00 Naloxone 0.4 Mg/Ml 1 Ml Vial IV 04/10/24 11:59 Q2M PRN Opioid Reversal Intake and Output 03/10/24 03/11/24 03/11/24 22:59 06:59 14:59 Other: Weight 86.183 kg Patient Weight 03/12/24 06:59 Weight 86.183 kg 03/11/24 10:50 03/11/24 10:50
[2024-03-11] MEDS: SODIUM CHLORIDE 0.9% 1,000 ML IV SCH ×2 (13:00→13:39)
[2024-03-11 14:13] LABS: Appearance,Urine Clear (Clear); Bilirubin,Urine Negative (Negative); Blood,Urine Negative (Negative); Color,Urine Colorless; Glucose,Urine (UA) Negative (Negative); Ketones,Urine Negative (Negative); Leukocyte Esterase,Urine Negative (Negative); Nitrite,Urine Negative (Negative); Protein,Urine Negative (Negative); Specific Gravity,Urine 1.013 (1.001-1.035); Urobilinogen,Urine <2.0 mg/dL (<2.0)
--- NOTE | 2024-03-11 17:10 | P.HPIM ---
History of Present Illness H&P Date: 03/11/24 Chief Complaint: Decrease blood pressure pleasant 78 years old male with multiple medical problems , follows with Dr. Umana. at [facility]. Patient at the bedside. This morning the nurse at the [facility] noticed the blood pressure to be low. Patient did not look right. Patient sent to the ER. Found to be in complete heart block. Temporary pacemaker was placed. Patient return to the ICU. At baseline: Patient able to walk 2025 steps. Able to feed himself. Does wear a diaper. Able to recognize family. Hold a simple conversation. Review of systems: GEN.: Tired EYES: None HEENT: None NECK: None RESPIRATORY: None CARDIOVASCULAR: None GASTROINTESTINAL: None GENITOURINARY: None MUSCULOSKELETAL: None LYMPHATICS: None HEMATOLOGICAL: None PSYCHIATRY: Forgetful NEUROLOGICAL: Uses a walker Past medical history to include: COPD, dementia, hypertension, hyperlipidemia, hypothyroid, skin cancer left ear, CAD with stent, depression Social history: Nonsmoker. . At [facility] Physical examination: VITAL SIGNS: 97.7, 28, 20, 131 x 63, 100% on 2 L at presentation GENERAL: BMI 31.6, laying bed awake eating supper EYES: Pupils equal. Conjunctiva normal. HEENT: External appearance of nose and ears normal, oral cavity grossly normal. NECK: JVD not raised; masses not palpable. HEART: First and second heart sounds are normal; no edema. LUNGS: Respiratory rate normal; diminished breath sounds. ABDOMEN: Soft, nontender, liver spleen not palpable, no masses palpable. PSYCH: Answering simple conversation. MUSCULOSKELETAL:No Clubbing/cyanosis;muscles-grossly intact. OA NEUROLOGICAL: Cranial nerves grossly intact; no facial asymmetry, power and sensation grossly intact. LYMPHATICS: No lymph nodes palpable in the axilla and neck INVESTIGATIONS, reviewed in the clinical context: March 11, 2024: White count 12.6 hemoglobin 12.5 platelets 300 sodium 141 potassium 4.6 BUN 49 creatinine 1.31 TSH 3.0 EKG tracing personally reviewed by me-complete heart block. Ventricular rate 28 Chest x-ray film personally reviewed by me-expiratory film. Cardiomegaly Previous labs 05/20/2023: BUN 20 creatinine 1.04 Assessment and Plan : -Complete heart block, symptomatic Temporary venous pacemaker placed. For pacemaker placement tomorrow -Acute kidney injury combination of prerenal and ATN. Improved Creatinine 0.9 on July 2023. Currently 1.31 - chronic medical debility. PT OT at [facility]. -Chronic gait dysfunction baseline uses a walker -Chronic elevation right hemidiaphragm -Hypothyroidism Synthroid -Hypertension Lopressor-discontinued -Hyperlipidemia vytorin -Coronary artery disease prior PCI in 1999 Plavix, Lopressor - depression, Zoloft -Severe cognitive impairment secondary to Alzheimer Dementia: Progressive Namenda -DO NOT RESUSCITATE - is a legal guardian Discussed with . 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, altimers Last Myocardial Infarction Date:: 10/1999 History of Any Multi-Drug Resistant Organisms: None Reported Past Surgical History: Heart Catheterization With Stent Additional Past Surgical History / Comment(s): 3 stents placed in 10/1999 Past Anesthesia/Blood Transfusion Reactions: No Reported Reaction Date of Last Stent Placement:: 10/1999 Past Psychological History: Depression Smoking Status: Never smoker Past Alcohol Use History: None Reported Past Drug Use History: None Reported - Past Family History Father History Unknown: Yes Medications and Allergies Home Medications Medication Instructions Recorded Confirmed Type Clopidogrel [Plavix] 75 mg PO DAILY 04/17/16 03/11/24 History Ezetimibe/Simvastatin [Vytorin 1 tab PO HS 04/17/16 03/11/24 History 10-40 mg Tablet] Isosorbide Mononitrate ER [Imdur] 30 mg PO DAILY 04/17/16 03/11/24 History Sertraline [Zoloft] 100 mg PO HS 04/17/16 03/11/24 History Levothyroxine Sodium [Synthroid] 75 mcg PO DAILY 05/20/23 03/11/24 History Metoprolol Tartrate [Lopressor] 25 mg PO DAILY 07/22/23 03/11/24 History Albuterol Nebulized [Ventolin 2.5 mg INHALATION RT-Q6H PRN 03/11/24 03/11/24 History Nebulized] Albuterol Sulfate [Ventolin HFA] 2 puff INHALATION RT-Q6H PRN 03/11/24 03/11/24 History Ammonium Lactate Lotion 1 applic TOPICAL BID 03/11/24 03/11/24 History [Lac-Hydrin 12% Lotion] Ascorbic Acid [Vitamin C] 500 mg PO DAILY 03/11/24 03/11/24 History Budesonide [Pulmicort] 1 mg INHALATION RT-DAILY@0500 03/11/24 03/11/24 History Cholecalciferol [Vitamin D3 (25 25 mcg PO DAILY 03/11/24 03/11/24 History Mcg = 1000 Iu)] Cyanocobalamin (Vitamin B-12) 1,000 mcg PO DAILY 03/11/24 03/11/24 History [Vitamin B-12] Famotidine [Pepcid] 20 mg PO DAILY 03/11/24 03/11/24 History Magnesium Hydroxide [Milk of 2,400 mg PO DAILY PRN 03/11/24 03/11/24 History Magnesia] lisinopriL [Zestril] 5 mg PO HS 03/11/24 03/11/24 History Allergies Allergy/AdvReac Type Severity Reaction Status Date / Time Penicillins AdvReac Nausea & Verified 03/11/24 11:12 Vomiting Physical Exam Vitals: Vital Signs Temp Pulse Pulse Resp BP Pulse Ox 03/11/24 14:45 60 23 137/71 100 03/11/24 14:30 60 11 L 123/66 100 03/11/24 14:15 60 138/72 03/11/24 14:00 60 11 L 123/68 100 03/11/24 13:45 59 L 6 L 126/70 100 03/11/24 13:30 60 10 L 112/66 99 03/11/24 13:15 94.4 F L 60 15 145/68 100 03/11/24 13:00 37 H 142/75 03/11/24 11:40 29 L 18 125/56 97 03/11/24 11:37 94 L 03/11/24 11:36 85 L 03/11/24 11:05 27 L 18 105/54 96 03/11/24 10:43 28 L 03/11/24 10:36 97.7 F 28 L 20 131/63 100 Intake and Output 03/11/24 03/11/24 03/11/24 06:59 14:59 22:59 Intake Total 150 Output Total 700 Balance -550 Intake: IV 150 Sodium Chloride 0.9% 1, 100 000 ml @ 50 mls/hr IV . Q20H SUJATHA Rx#:[id number] Sodium Chloride 0.9% 1, 50 000 ml @ 50 mls/hr IV . Q20H SUJATHA Rx#:[id number] Output: Urine 700 Other: Weight 86.183 kg Results CBC & Chem 7: 03/11/24 10:50 03/11/24 10:50 Labs: Abnormal Lab Results - Last 24 Hours (Table) 03/11/24 03/11/24 Range/Units 10:50 10:50 WBC 12.6 H (3.8-10.6) k/uL RBC 4.18 L (4.30-5.90) m/uL Hgb 12.5 L (13.0-17.5) gm/dL Neutrophils # 8.9 H (1.3-7.7) k/uL Monocytes # 1.3 H (0-1.0) k/uL Chloride 109 H (98-107) mmol/L BUN 49 H (9-20) mg/dL Creatinine 1.31 H (0.66-1.25) mg/dL Calcium 8.1 L (8.4-10.2) mg/dL Total Protein 5.4 L (6.3-8.2) g/dL Albumin 2.9 L (3.5-5.0) g/dL Thrombosis Risk Factor Assmnt - Choose All That Apply Any of the Below Risk Factors Present?: Yes Each Factor Represents 1 point: Medical pt on bed rest, Minor surgery planned, Obesity (BMI >25) Other Risk Factors: No Other congenital or acquired thrombophilia - If yes, enter type in comment: No Thrombosis Risk Factor Assessment Total Risk Factor Score: 3 Thrombosis Risk Factor Assessment Level: Moderate Risk
[2024-03-11] MEDS: ENOXAPARIN 40 MG/0.4 ML SYRINGE SQ SCH (17:49)
[2024-03-11] MEDS ORDERED: ALBUTEROL HFA INHALER INHALATION PRN (19:32)
[2024-03-11] MEDS ORDERED: MAGNESIUM HYDROXIDE 2,400 MG/30 ML CUP PO PRN (19:32)
[2024-03-11] MEDS: lisinopriL 5 MG TAB PO SCH (21:22)
[2024-03-11] MEDS: SERTRALINE 100 MG TAB PO SCH (21:24)
[2024-03-11] MEDS: ATORVASTATIN 20 MG TAB PO SCH (21:24)
[2024-03-11] MEDS: EZETIMIBE 10 MG TAB PO SCH (21:24)
--- NOTE | 2024-03-11 23:29 | PCN ---
PROCEDURE NOTE PROCEDURE PERFORMED: Temporary transvenous pacemaker. INDICATION: Complete heart block. PROCEDURE NOTE: After obtaining informed consent, temporary transvenous pacemaker was performed via the right femoral vein. Right femoral venous access was obtained using Seldinger technique. Sheath was placed. Temporary transvenous pacemaker was floated into the right ventricle under fluoroscopic guidance. Adequate pacing and sensing thresholds were obtained. The patient will be admitted to ICU. We will obtain a 2D echo and we will schedule the patient for a permanent pacemaker with Dr. Mckeon tomorrow. The patient received sedation and total sedation time was 15 minutes. MMLUZ / QIN: [id number] /
[2024-03-12 06:17] LABS: Basophils % (A) 0 %; Eosinophils # (A) 0.2 k/uL (0-0.7); Eosinophils % (A) 2 %; HCT 40.1 % (39.0-53.0); HGB 12.4 gm/dL (13.0-17.5); Hypochromasia Moderate; Lymphocytes # (A) 1.7 k/uL (1.0-4.8); Lymphocytes % (A) 17 %; MCH 29.6 pg (25.0-35.0); MCHC 30.9 g/dL (31.0-37.0); Mean Platelet Volume 6.9; Monocytes # (A) 0.8 k/uL (0-1.0); Monocytes % (A) 8 %; Neutrophils # (A) 7.2 k/uL (1.3-7.7); Neutrophils % (A) 71 %; Platelet Count 265 k/uL (150-450); RBC 4.18 m/uL (4.30-5.90); RDW 14.3 % (11.5-15.5); WBC 10.2 k/uL (3.8-10.6)
[2024-03-12 06:27] LABS: African American GFR (CKD) 71 (>60 ml/min/1.73 sqM); Anion Gap 2 mmol/L; Blood Urea Nitrogen 37 mg/dL (9-20); Calcium 8.2 mg/dL (8.4-10.2); Carbon Dioxide 22 mmol/L (22-30); Chloride 114 mmol/L (98-107); Glucose 85 mg/dL (74-99); Non-African American GFR(CKD) 61 (>60 ml/min/1.73 sqM); Potassium 4.4 mmol/L (3.5-5.1); Sodium 138 mmol/L (137-145)
[2024-03-12] MEDS: LEVOTHYROXINE 75 MCG TAB PO SCH (06:52)
[2024-03-12] MEDS ORDERED: ceFAZolin 1 GM in SODIUM CHLORIDE 0.9% IRRIG BTL 250 ML IRRIGATION PRN (07:00)
[2024-03-12] MEDS: ALBUTEROL NEBULIZED 2.5 MG/3 ML INHALATION PRN (08:03)
[2024-03-12] MEDS: BUDESONIDE 1 MG/2 ML NEBU INHALATION SCH (08:04)
[2024-03-12] MEDS: CHOLECALCIFEROL 25 MCG (1000 IU) TABLET PO SCH (08:47)
[2024-03-12] MEDS: ASPIRIN 81 MG PO SCH (08:47)
[2024-03-12] MEDS: FAMOTIDINE 20 MG TAB PO SCH (08:47)
[2024-03-12] MEDS: ISOSORBIDE MONONITRATE ER 30 MG TAB.ER.24H PO SCH (08:47)
[2024-03-12] MEDS: ASCORBIC ACID 500 MG TAB PO SCH (08:47)
[2024-03-12] MEDS: CYANOCOBALAMIN 500 MCG TAB PO SCH (08:47)
[2024-03-12] MEDS: SODIUM CHLORIDE 0.9% 1,000 ML IV ONE (13:09)
[2024-03-12] MEDS: HEPARIN SODIUM,PORCINE (1 ML) 2,500 UNIT in SODIUM CHLORIDE 0.9% 250 ML IRRIGATION ONE (13:10)
[2024-03-12] MEDS: SODIUM CHLORIDE 0.9% 500 ML 500 ML IV ONE (13:10)
[2024-03-12] MEDS: ceFAZolin 2 GM in SODIUM CHLORIDE 0.9% 500 ML 500 ML IRRIGATION ONE (13:10)
--- NOTE | 2024-03-12 13:12 | CA ---
Transthoracic Echo Report Name: Emile Cruz Age: 78 Gender: M : 1945 Exam Date: 03/11/2024 13:42 Exam Location: [place] [facility] Ht (in): 65 Wt (lb): 190 Ordering Physician: Bessie Haque Attending/Referring Phys: [id number], [place] Switch Maker Catalina Potts RDCS Procedure CPT: Indications: LV function, heart block, s/p temp pacer Cardiac Hx: Technical Quality: Technically difficult study Contrast 1: Definity Total Dose (mL): 2 Contrast 2: Total Dose (mL): MEASUREMENTS (Male / Female) Normal Values 2D ECHO LV Diastolic Diameter PLAX 5.2 cm 4.2 - 5.9 / 3.9 - 5.3 cm LV Systolic Diameter PLAX 4.3 cm IVS Diastolic Thickness 1.1 cm 0.6 - 1.0 / 0.6 - 0.9 cm LVPW Diastolic Thickness 0.9 cm 0.6 - 1.0 / 0.6 - 0.9 cm LV Relative Wall Thickness 0.4 LVOT Diameter 2.0 cm LA Volume 64.7 cm??? 18 - 58 / 22 - 52 cm??? LA Volume Index 32.0 cm???/m??? 16 - 28 cm???/m??? Ascending Aorta Diameter 3.6 cm DOPPLER AV Peak Velocity 221.6 cm/s AV Peak Gradient 19.6 mmHg AV Mean Velocity 164.0 cm/s AV Mean Gradient 11.7 mmHg AV Velocity Time Integral 53.6 cm LVOT Peak Velocity 101.8 cm/s LVOT Peak Gradient 4.1 mmHg LVOT Velocity Time Integral 21.3 cm LVOT Stroke Volume 65.0 cm??? LVOT Stroke Volume Index 33.6 ml/m??? LVOT Cardiac Index 1933.9 cm???/min???m??? AV Area Cont Eq vti 1.2 cm??? AV Area Cont Eq pk 1.4 cm??? MV Area PHT 3.6 cm??? Mitral E Point Velocity 64.5 cm/s Mitral A Point Velocity 87.8 cm/s Mitral E to A Ratio 0.7 MV Deceleration Time 210.8 ms TR Peak Velocity 258.7 cm/s TR Peak Gradient 26.8 mmHg Right Atrial Pressure 20.0 mmHg Pulmonary Artery Systolic Pressu 46.8 mmHg Right Ventricular Systolic Press 46.8 mmHg PV Peak Velocity 91.3 cm/s PV Peak Gradient 3.3 mmHg FINDINGS Left Ventricle Left ventricular ejection fraction is estimated at 40 %. Mildly increased septal wall thickness. Left ventricular cavity size normal. Global hypokinesis. Right Ventricle Normal right ventricular size and function. Mild to moderate pulmonary hypertension. Right Atrium Normal right atrial size. Left Atrium Mildly increased left atrial volume. Mitral Valve Mitral valve thickened. Mitral annular calcification. No evidence for mitral valve prolapse. No mitral stenosis. Trace mitral regurgitation. Aortic Valve Trileaflet aortic valve. Diffuse thickening of the aortic valve cusps with reduced excursion. Mild aortic stenosis, mean gradient 12mmHg. Mild aortic regurgitation. Tricuspid Valve Structurally normal tricuspid valve. No tricuspid stenosis. Mild tricuspid regurgitation. Pulmonic Valve Pulmonic valve not well visualized. No pulmonic stenosis. No pulmonic regurgitation. Pericardium No pericardial effusion. Aorta Normal size aortic root and proximal ascending aorta. CONCLUSIONS Left ventricular ejection fraction 40% with global hypokinesis Mildly increased left ventricular wall thickness Mitran or calcification Mild aortic stenosis Mild tricuspid regurgitation RVSP 47 Previewed by: Dr. David Mckeon DO (Electronically Signed) Final Date: 12 March 2024 13:12
[2024-03-12] MEDS: MIDAZOLAM 2 MG/2 ML VIAL IVP ONE ×3 (13:14→13:37)
[2024-03-12] MEDS: fentaNYL (PF) 50 MCG/ML 2 ML AMP IVP ONE ×3 (13:14→13:37)
[2024-03-12] MEDS: ceFAZolin 1,000 MG VIAL IVPB ONE (13:22)
[2024-03-12] MEDS: LIDOCAINE 1% INJ 10MG/ML (20 ML MDV) SQ ONE (13:25)
[2024-03-12] MEDS ORDERED: ACETAMINOPHEN TAB 325 MG TAB PO PRN (14:30)
--- NOTE | 2024-03-12 15:03 | P.PCN ---
Description of Procedure: CARDIOLOGY PROCEDURE NOTE Laundry Superintendent: Dr. David Mckeon Procedure performed: Insertion dual chamber permanent pacemaker Site: Left subclavian Indications: 3rd degree heart block, Cardiomyopathy with EF 40% deemed not appropriate candidate for AICD or BiV PPM secondary to advanced dementia and family wishes Complications: None Blood Loss: Minimal Description of Procedure: After the risks, benefits, and alternatives of the above-mentioned procedure was explained in detail with the patient, informed consent was obtained. The patient was taken to the cardiac catheterization suite where the left subclavian area was sterily prepped and draped in the usual fashion. One percent lidocaine was used to anesthetize the left subclavian area. Twenty milliliters of Isoview 370 contrast was injected into the left antecubital vein to allow for direct visualization of the left subclavian vein under fluoroscopy. A 1.5 inch incision was made utilizing a #15 blade in the left subclavian site. Hemostasis was made complete. Electrocautery along with digital blunt dissection was utilized to dissect to the level of the pectoralis muscle fascia and create a pocket large enough to accommodate the generator. A thin walled micro puncuture needle was used to cannulate the left subclavian vein. A guide-wire was inserted through t he needle into the vascular lumen under fluoroscopic guidance. The needle was removed. Another thin walled micr puncture needle was used to again cannulate the left subclavian vein. A guide-wire was inserted through the needle into the vascular lumen under fluoroscopic guidance. The needle was removed and both guide-wires were attached to the field. A venous sheath and dilator were advanced over the guidewire into the vascular lumen under fluoroscopic guidance. The dilator and guidewire were then removed. A right ventricular bipolar lead was inserted into the sheath and advanced under fluoroscopic guidance into the right ventricle under fluoroscopic guidance. Adequate sensing and pacing thresholds were achieved and the lead was screwed into place in the RV apex. The sheath was then torn away. The lead collar was advanced and anchored into place utilizing #0 silk suture. Next, another venous sheath and dilator were advanced under fluoroscopic guidance into the vascular lumen over the guidewire. After removal of the dilator and guidewire, a right atrial bipolar lead was inserted into this sheath and advanced under fluoroscopic guidance into the right atrium. The lead was positioned into the right atrial appendage. Adequate sensing and pacing thresholds were then achieved and the lead was screwed into place. The sheath was then torn away. The lead collar was advanced and anchored into place utilizing #0 silk suture. The leads were then inserted into the appropriate position into the generator. They were then secured with the setscrew provided. The leads and generator were inserted into the pocket with the leads posterior. The subcutaneous tissue was approximated utilizing #2.0 and 3.0 vicryl in an interrupted stitch fashion. The dermal layer was approximated utilizing #4.0 vicryl. The area was cleansed with sterile saline and dried. A sterile 4x4 dressing was applied and the patient was transferred to the post catheterization holding area in stable and satisfactory condition. The patient tolerated the procedure well. Generator Data Visual Arts Teacher: Gatekeeper System Brand: [id number] Maricarmen XT DR MRI Model #: [id number] Serial#: [id number] Right Atrial Bipolar Lead Data: Type: Active fixation lead Visual Arts Teacher: Gatekeeper System Model#: 5076-45 Serial Number: [id number] Right Ventricular Bipolar Lead Data: Type: Active fixation lead Visual Arts Teacher: Medtronic Model #: 5076-52 Serial #: [id number] Stimulation Thresholds: Right atrial bipolar lead pacing and sensing thresholds Voltage: 0.875 Impedance: 570 ohms P-wave sensin.5 mV Right Ventricular bipolar lead pacing and sensing thresholds Pulse Width: 0.4ms Voltage: 1.0 volts Impedance: 798 ohms R-wave sensing: Dependent Parameter Setting: Pacing mode is DDD Lower rate 60 bpm Upper rate 130 bpm Impressions: 1. Successful implantation of a dual chamber permanent pacemaker in the left pectoral site. Plan: 1. Routine post procedure care will be instituted as well as outpatient follow- up surveillance.
--- NOTE | 2024-03-12 15:31 | XR ---
EXAMINATION TYPE: XR chest 1V portable DATE OF EXAM: 03/12/2024 COMPARISON: 03/11/2024 HISTORY: Lead placement check TECHNIQUE: Single frontal view of the chest is obtained. FINDINGS: Elevated left hemidiaphragm. Dual lead cardiac device with the proximally overlying the ri ght atrium overlying the right ventricle. No pneumothorax. Subsegmental atelectasis at the right lung base. No overt failure. Heart mildly enlarged. Atheroscler otic change aorta. Degenerative changes of the spine and arthropathy of the shoulders. IMPRESSION: Cardiac device placement with no evidence of pneumothorax. [facility] Elfego Patel, , 03/12/2024 3:29 PM
--- NOTE | 2024-03-12 20:51 | P.PN ---
Progress Note - Text Progress Note Date: 03/12/24 Chief Complaint: Decrease blood pressure pleasant 78 years old male with multiple medical problems , follows with Dr. Umana. at [facility]. Patient at the bedside. This morning the nurse at the [facility] noticed the blood pressure to be low. Patient did not look right. Patient sent to the ER. Found to be in complete heart block. Temporary pacemaker was placed. Patient return to the ICU. At baseline: Patient able to walk 2025 steps. Able to feed himself. Does wear a diaper. Able to recognize family. Hold a simple conversation. March 12: Patient seen this afternoon. Patient was being visited by his boat builder and repairer at the bedside. Later in the afternoon, dual-chamber permanent pacemaker was placed. Otherwise patient has been comfortable. Active Medications Acetaminophen (Acetaminophen Tab 325 Mg Tab) 650 mg PO Q6HR PRN PRN Reason: Mild Pain (Scale 1 to 3) Albuterol Sulfate (Albuterol Nebulized 2.5 Mg/3 Ml) 2.5 mg INHALATION RT-Q6H PRN PRN Reason: Shortness Of Breath Last Admin: 03/12/24 08:03 Dose: 2.5 mg Ascorbic Acid (Ascorbic Acid 500 Mg Tab) 500 mg PO DAILY [facility] Last Admin: 03/12/24 08:47 Dose: 500 mg Aspirin (Aspirin 81 Mg) 81 mg PO DAILY [facility] Last Admin: 03/12/24 08:47 Dose: 81 mg Atorvastatin Calcium (Atorvastatin 20 Mg Tab) 20 mg PO HS [facility] Last Admin: 03/12/24 20:07 Dose: 20 mg Budesonide (Budesonide 1 Mg/2 Ml Nebu) 1 mg INHALATION RT-DAILY@0500 [facility] Last Admin: 03/12/24 08:04 Dose: 1 mg Cholecalciferol (Cholecalciferol 25 Mcg (1000 Iu) Tablet) 25 mcg PO DAILY [facility] Last Admin: 03/12/24 08:47 Dose: 25 mcg Cyanocobalamin (Cyanocobalamin 500 Mcg Tab) 1,000 mcg PO DAILY [facility] Last Admin: 03/12/24 08:47 Dose: 1,000 mcg Ezetimibe (Ezetimibe 10 Mg Tab) 10 mg PO HS [facility] Last Admin: 03/12/24 20:07 Dose: 10 mg Enoxaparin Sodium (Enoxaparin 40 Mg/0.4 Ml Syringe) 40 mg SQ DAILY [facility] Last Admin: 03/12/24 14:55 Dose: 40 mg Famotidine (Famotidine 20 Mg Tab) 20 mg PO DAILY [facility] Last Admin: 03/12/24 08:47 Dose: 20 mg Cefazolin Sodium 1 gm/ Sodium (Chloride) 250 mls @ 250 mls/hr IRRIGATION ONCE PRN PRN Reason: PRE-OP Stop: 03/12/24 23:00 Sodium Chloride (Saline 0.9%) 1,000 mls @ 50 mls/hr IV .Q20H [facility] Last Admin: 03/12/24 08:52 Dose: 50 mls/hr Cefazolin Sodium 2 gm/ Sodium (Chloride) 50 mls @ 100 mls/hr IVPB ONCE PRN PRN Reason: Pre-Op Stop: 03/12/24 23:00 Isosorbide Mononitrate (Isosorbide Mononitrate Er 30 Mg Tab.Er.24h) 30 mg PO DAILY [facility] Last Admin: 03/12/24 08:47 Dose: 30 mg Levothyroxine Sodium (Levothyroxine 75 Mcg Tab) 75 mcg PO DAILY@0630 [facility] Last Admin: 03/12/24 06:52 Dose: 75 mcg Lisinopril (Lisinopril 5 Mg Tab) 5 mg PO HS [facility] Last Admin: 03/12/24 20:07 Dose: 5 mg Magnesium Hydroxide (Magnesium Hydroxide 2,400 Mg/30 Ml Cup) 2,400 mg PO DAILY PRN PRN Reason: Constipation Naloxone HCl (Naloxone 0.4 Mg/Ml 1 Ml Vial) 0.2 mg IV Q2M PRN PRN Reason: Opioid Reversal Stop: 04/10/24 11:59 Sertraline HCl (Sertraline 100 Mg Tab) 100 mg PO HS [facility] Last Admin: 03/12/24 20:07 Dose: 100 mg Sodium Chloride (Sodium Chloride 0.9% Flush 10 Ml Syringe) 10 ml IV Q12HR [facility] Last Admin: 03/12/24 20:10 Dose: 10 ml Past medical history to include: COPD, dementia, hypertension, hyperlipidemia, hypothyroid, skin cancer left ear, CAD with stent, depression Social history: Nonsmoker. . At [facility] Physical examination: VITAL SIGNS: 97.1, 60, 16, 136 x 69, 88% room air GENERAL: BMI 31.6, laying bed awake comfortable EYES: Pupils equal. Conjunctiva normal. HEENT: External appearance of nose and ears normal, oral cavity grossly normal. NECK: JVD not raised; masses not palpable. HEART: First and second heart sounds are normal; no edema. LUNGS: Respiratory rate normal; diminished breath sounds. ABDOMEN: Soft, nontender, liver spleen not palpable, no masses palpable. PSYCH: Answering simple conversation. MUSCULOSKELETAL:No Clubbing/cyanosis;muscles-grossly intact. OA INVESTIGATIONS, reviewed in the clinical context: March 12: White count 10.2 hemoglobin 12.4 potassium 4.4 creatinine 1.14 March 11, 2024: White count 12.6 hemoglobin 12.5 platelets 300 sodium 141 potassium 4.6 BUN 49 creatinine 1.31 TSH 3.0 EKG tracing personally reviewed by me-complete heart block. Ventricular rate 28 Chest x-ray film personally reviewed by me-expiratory film. Cardiomegaly Previous labs 05/20/2023: BUN 20 creatinine 1.04 Assessment and Plan : -Complete heart block, symptomatic Temporary venous pacemaker placed. Permanent pacemaker dual-chamber placed today March [address] Mckeon -Acute kidney injury combination of prerenal and ATN. Improved Creatinine 0.9 on July 2023. Admission: 1.31 currently 1.14 - chronic medical debility. PT OT at [facility]. -Chronic gait dysfunction baseline uses a walker -Chronic elevation right hemidiaphragm -Hypothyroidism Synthroid -Hypertension Lopressor-discontinued -Hyperlipidemia vytorin -Coronary artery disease prior PCI in 1999 Plavix, Lopressor - depression, Zoloft -Severe cognitive impairment secondary to Alzheimer Dementia: Progressive Namenda -DO NOT RESUSCITATE - is a legal guardian Status post pacemaker placement today. Continue current medication treatment plan. Past Medical History Past Medical History: Coronary Artery Disease (CAD), Cancer, Dementia, Hyperlipidemia, Hypertension, Memory Impairment, Myocardial Infarction ([place]), Pneumonia, Thyroid Disorder Additional Past Medical History / Comment(s): Skin cancer on Left ear, altimers Last Myocardial Infarction Date:: 10/1999 History of Any Multi-Drug Resistant Organisms: None Reported Past Surgical History: Heart Catheterization With Stent Additional Past Surgical History / Comment(s): 3 stents placed in 10/1999 Past Anesthesia/Blood Transfusion Reactions: No Reported Reaction Date of Last Stent Placement:: 10/1999 Past Psychological History: Depression Smoking Status: Never smoker Past Alcohol Use History: None Reported Past Drug Use History: None Reported
[2024-03-13] MEDS: METOPROLOL SUCCINATE (ER) 25 MG TAB.ER.24H PO SCH (09:48)
[2024-03-13] MEDS: CLOPIDOGREL 75 MG TAB PO SCH (09:48)
--- NOTE | 2024-03-13 11:07 | P.DS ---
Providers Date of admission: 03/11/24 12:01 Expected date of discharge: 03/13/24 Attending physician: Humberto Caro Consults: 03/11/24 11:17 Consult Physician Routine Consulting Provider: [facility] Consult Reason/Comments: 3rd degree heart block Do you want consulting provider notified?: Already Contacted Primary care physician: Marlon [facility] Course: Chief Complaint: Decrease blood pressure pleasant 78 years old male with multiple medical problems , follows with Dr. Umana. at [facility]. Patient at the bedside. This morning the nurse at the [facility] noticed the blood pressure to be low. Patient did not look right. Patient sent to the ER. Found to be in complete heart block. Temporary pacemaker was placed. Patient return to the ICU. At baseline: Patient able to walk 2025 steps. Able to feed himself. Does wear a diaper. Able to recognize family. Hold a simple conversation. March 12: Patient seen this afternoon. Patient was being visited by his paper maker at the bedside. Later in the afternoon, dual-chamber permanent pacemaker was placed. Otherwise patient has been comfortable. March 13: Pacemaker check done. Patient comfortable. Cleared by cardiology. Will follow-up with the pacemaker clinic. Toprol-XL dose decreased. Daily Past medical history to include: COPD, dementia, hypertension, hyperlipidemia, hypothyroid, skin cancer left ear, CAD with stent, depression Social history: Nonsmoker. . At [facility] Physical examination: VITAL SIGNS: 98, 66, 21, 159 x 79, 94% room air GENERAL: BMI 31.6, laying bed awake comfortable. Left chest wall pacemaker with dressing over the same EYES: Pupils equal. Conjunctiva normal. HEENT: External appearance of nose and ears normal, oral cavity grossly normal. NECK: JVD not raised; masses not palpable. HEART: First and second heart sounds are normal; no edema. LUNGS: Respiratory rate normal; diminished breath sounds. ABDOMEN: Soft, nontender, liver spleen not palpable, no masses palpable. PSYCH: Answering simple conversation. MUSCULOSKELETAL:No Clubbing/cyanosis;muscles-grossly intact. OA INVESTIGATIONS, reviewed in the clinical context: March 12: White count 10.2 hemoglobin 12.4 potassium 4.4 creatinine 1.14 March 11, 2024: White count 12.6 hemoglobin 12.5 platelets 300 sodium 141 potassium 4.6 BUN 49 creatinine 1.31 TSH 3.0 EKG tracing personally reviewed by me-complete heart block. Ventricular rate 28 Chest x-ray film personally reviewed by me-expiratory film. Cardiomegaly Previous labs 05/20/2023: BUN 20 creatinine 1.04 Assessment and Plan : -Complete heart block, symptomatic Temporary venous pacemaker placed. Permanent pacemaker dual-chamber placed- March [address] Mckeon Follow-up with the pacemaker clinic -Acute kidney injury combination of prerenal and ATN. Improved Creatinine 0.9 on July 2023. Admission: 1.31 currently 1.14 - chronic medical debility. PT OT at [facility]. -Chronic gait dysfunction baseline uses a walker -Chronic elevation right hemidiaphragm -Hypothyroidism Synthroid -Hypertension Toprol XL 25 mg a day -Hyperlipidemia vytorin -Coronary artery disease prior PCI in 1999 Plavix, Lopressor - depression, Zoloft -Severe cognitive impairment secondary to Alzheimer Dementia: Progressive Namenda -DO NOT RESUSCITATE - is a legal guardian Disposition: [facility] Past Medical History Past Medical History: Coronary Artery Disease (CAD), Cancer, Dementia, Hyperlipidemia, Hypertension, Memory Impairment, Myocardial Infarction (SC), Pneumonia, Thyroid Disorder Additional Past Medical History / Comment(s): Skin cancer on Left ear, altimers Last Myocardial Infarction Date:: 10/1999 History of Any Multi-Drug Resistant Organisms: None Reported Past Surgical History: Heart Catheterization With Stent Additional Past Surgical History / Comment(s): 3 stents placed in 10/1999 Past Anesthesia/Blood Transfusion Reactions: No Reported Reaction Date of Last Stent Placement:: 10/1999 Past Psychological History: Depression Smoking Status: Never smoker Past Alcohol Use History: None Reported Past Drug Use History: None Reported Plan - Discharge Summary Discharge Rx Participant: No New Discharge Prescriptions: New Aspirin 81 mg PO DAILY tab Metoprolol Succinate (ER) [Toprol XL] 25 mg PO DAILY tab Continue Sertraline [Zoloft] 100 mg PO HS Isosorbide Mononitrate ER [Imdur] 30 mg PO DAILY Clopidogrel [Plavix] 75 mg PO DAILY Ezetimibe/Simvastatin [Vytorin 10-40 mg Tablet] 1 tab PO HS Levothyroxine Sodium [Synthroid] 75 mcg PO DAILY Ammonium Lactate Lotion [Lac-Hydrin 12% Lotion] 1 applic TOPICAL BID Albuterol Sulfate [Ventolin HFA] 2 puff INHALATION RT-Q6H PRN PRN Reason: COPD SOB Magnesium Hydroxide [Milk of Magnesia] 2,400 mg PO DAILY PRN PRN Reason: Constipation Cyanocobalamin (Vitamin B-12) [Vitamin B-12] 1,000 mcg PO DAILY Cholecalciferol [Vitamin D3 (25 Mcg = 1000 Iu)] 25 mcg PO DAILY Ascorbic Acid [Vitamin C] 500 mg PO DAILY Budesonide [Pulmicort] 1 mg INHALATION RT-DAILY@0500 Albuterol Nebulized [Ventolin Nebulized] 2.5 mg INHALATION RT-Q6H PRN PRN Reason: Shortness Of Breath lisinopriL [Zestril] 5 mg PO HS Famotidine [Pepcid] 20 mg PO DAILY Discontinued Metoprolol Tartrate [Lopressor] 25 mg PO DAILY Discharge Medication List Clopidogrel [Plavix] 75 mg PO DAILY 04/17/16 [History] Ezetimibe/Simvastatin [Vytorin 10-40 mg Tablet] 1 tab PO HS 04/17/16 [History] Isosorbide Mononitrate ER [Imdur] 30 mg PO DAILY 04/17/16 [History] Sertraline [Zoloft] 100 mg PO HS 04/17/16 [History] Levothyroxine Sodium [Synthroid] 75 mcg PO DAILY 05/20/23 [History] Albuterol Nebulized [Ventolin Nebulized] 2.5 mg INHALATION RT-Q6H PRN 03/11/24 [History] Albuterol Sulfate [Ventolin HFA] 2 puff INHALATION RT-Q6H PRN 03/11/24 [History] Ammonium Lactate Lotion [Lac-Hydrin 12% Lotion] 1 applic TOPICAL BID 03/11/24 [History] Ascorbic Acid [Vitamin C] 500 mg PO DAILY 03/11/24 [History] Budesonide [Pulmicort] 1 mg INHALATION RT-DAILY@0500 03/11/24 [History] Cholecalciferol [Vitamin D3 (25 Mcg = 1000 Iu)] 25 mcg PO DAILY 03/11/24 [History] Cyanocobalamin (Vitamin B-12) [Vitamin B-12] 1,000 mcg PO DAILY 03/11/24 [History] Famotidine [Pepcid] 20 mg PO DAILY 03/11/24 [History] Magnesium Hydroxide [Milk of Magnesia] 2,400 mg PO DAILY PRN 03/11/24 [History] lisinopriL [Zestril] 5 mg PO HS 03/11/24 [History] Aspirin 81 mg PO DAILY tab 03/13/24 [Rx] Metoprolol Succinate (ER) [Toprol XL] 25 mg PO DAILY tab 03/13/24 [Rx] Follow up Appointment(s)/Referral(s): Marlon Umana DO [Primary Care Provider] - 1-2 days Activity/Diet/Wound Care/Special Instructions: f/u pacemaker clinic
[2024-03-13 11:59] VITALS: BP 122/71; PULSE 76; RESP 18; TEMP 97.6
--- NOTE | 2024-03-13 12:22 | P.PN ---
Subjective Progress Note Date: 03/13/24 Per cardiology consult note, "History of present illness: This is a 78-year-old male with a past medical history significant for coronary artery disease with previous stenting, hypertension, hyperlipidemia, hypothyroidism, and dementia. Patient follows in the office with Dr. Funez but has not been seen in the office since February 2022. We have been asked to see the patient in consultation for complete heart block. Patient examined at the bedside in the emergency room. Patient currently resides at [facility] secondary to advanced dementia. Apparently during morning rounds, staff noticed the patient to be bradycardic in the 30s when they were checking his vital signs. The patient was brought to the ER for further evaluation. Patient's spouse is at the bedside. The patient is awake and conversing and does not appear to be in any distress. The patient currently denies any chest pain or pressure. He denies any shortness of breath. He denies any dizziness or lightheadedness. He denies any episodes of syncope. The patient's states that he appears a little bit worse than his baseline and she states he is "talking slower than normal". The patient is currently a DNR. She states that the patient is nonambulatory and uses a wheelchair. DIAGNOSTICS: - EKG reveals complete heart block. - Chest xray right basilar atelectasis or early pneumonia - Laboratory data: WBC 12.6. Hemoglobin 12.5. Platelet count 300. Sodium 141. Potassium 4.6. BUN 49. Creatinine 1.31. Troponin 0.019. TSH 3.0. - Current home cardiac medications include lisinopril 5 mg at night, metoprolol tartrate 25 mg daily, Imdur 30 mg daily, Plavix 75 mg daily, Ezetimibe/simvastatin 10-40 mg at night - Patient underwent Lexiscan stress test in February 2022 revealing evidence of prior inferior wall myocardial infarction with mild LV dysfunction without any ischemia. Ejection fraction estimated at 46%." Progress note: 03/13/2024 Patient was seen this morning at bedside. Reports no complaints during our assessment. Patient had a temporary transvenous pacemaker placement on 03/11, a permanent pacemaker was placed on 03/[address] Mckeon. He denied any fever, chills, chest pain, shortness of breath, nausea, vomiting, belly pain or diarrhea. Chest x-ray from yesterday afternoon showed cardiac device placement with no evidence of pneumothorax. Echocardiogram performed on 03/11/2024 showed ejection fraction of 40% with global hypokinesis. Patient is stable to be discharged. Physical examination: GENERAL: This is a 78-year-old in no apparent distress at the time of examination. Pleasant and cooperative. HEENT: Head is atraumatic, normocephalic. Pupils are equal, round, and reactive to light. Sclerae anicteric. Conjunctivae are clear. Mucus membranes of the kill[place] th are moist. Neck is supple. RESPIRATORY: Clear to auscultation. No wheezes, rales, or rhonchi. No use of accessory muscles. No chest wall tenderness is noted on palpation or with deep breathing. CARDIOVASCULAR: Regular rate and rhythm. S1 and S2 noted. No systolic or diastolic murmur auscultated. No JVD noted. No S3 or S4 noted. GASTROINTESTINAL: No distention noted. Abdomen soft and round. Normal active bowel sounds auscultated x 4 quadrants. No pain or tenderness noted upon palpation. INTEGUMENTARY: No cyanosis. No jaundice. No rashes noted. No cellulitis noted. EXTREMITIES: 2+ peripheral pulses. No evidence of peripheral edema. No calf tenderness noted. NEUROLOGIC: Detailed neurological examination was not assessed PSYCHIATRIC: Awake, alert, and oriented X 3. Appropriate affect. Intact judgement and insight. Impression: 1. Complete heart block 2. Coronary artery disease with previous stenting to the RCA x 1999 3. Mild ischemic cardiomyopathy, ejection fraction of 46% in 2021 4. History of hypertension 5. History of hyperlipidemia 6. Hypothyroidism 7. History of dementia 8. Nonambulatory, wheelchair-bound at baseline, per Plan: Resume metoprolol 25 mg p.o. daily and Plavix 75 mg p.o. daily. Chest x-ray was clear with no evidence of pneumothorax. Patient is stable to be discharged from cardiology standpoint. Objective - Vital Signs Vital signs: Vital Signs Temp 98.0 F 03/13/24 08:50 Pulse 66 03/13/24 08:50 Resp 21 03/13/24 08:50 BP 159/79 03/13/24 08:50 Pulse Ox 94 L 03/13/24 08:50 FiO2 Intake & Output 03/12/24 03/13/24 03/13/24 18:59 06:59 18:59 Intake Total 955 Output Total 1285 1675 150 Balance -330 -1675 -150 Weight 90 kg Intake: IV 905 Sodium Chloride 0.9% 1, 305 000 ml @ 50 mls/hr IV . Q20H [facility] Rx#:[id number] Intake, IV Titration 50 Amount ceFAZolin 2 gm In Sodium 50 Chloride 0.9% 50 ml @ 100 mls/hr IVPB Q6HR [facility] Rx# :[id number] Output: Urine 1285 1675 150 Other: Voiding Method Indwelling Catheter Indwelling Catheter Urinal # Voids 1 - Labs CBC & Chem 7: 03/12/24 05:30 03/12/24 05:30
== END 2024-03-13 16:27 | DRG 242 ==
LOC: CATHCVL 10:35 → 2SICU 12:01 → 3SCARD 03-13 08:50
PROVIDERS: ADMIT Hospitalist; ATTEND Hospitalist
PROC: 5A1223Z Performance of Cardiac Pacing, Continuous (ICD-10-PCS; 2024-03-11)
PROC: 02H63JZ Insertion of Pacemaker Lead into Right Atrium, Percutaneous Approach (ICD-10-PCS; 2024-03-12)
PROC: 02HK3JZ Insertion of Pacemaker Lead into Right Ventricle, Percutaneous Approach (ICD-10-PCS; 2024-03-12)
PROC: 0JH606Z Insertion of Pacemaker, Dual Chamber into Chest Subcutaneous Tissue and Fascia, Open Approach (ICD-10-PCS; principal; 2024-03-12 13:00)
DX: I44.2 Atrioventricular block, complete (principal); N17.0 Acute kidney failure with tubular necrosis; F02.C3 Dementia in other diseases classified elsewhere, severe, with mood disturbance; Z66 Do not resuscitate; J44.9 Chronic obstructive pulmonary disease, unspecified; G30.9 Alzheimer's disease, unspecified; I10 Essential (primary) hypertension; E03.9 Hypothyroidism, unspecified; F32.A Depression, unspecified; I25.10 Atherosclerotic heart disease of native coronary artery without angina pectoris; E78.5 Hyperlipidemia, unspecified; I25.5 Ischemic cardiomyopathy; R26.9 Unspecified abnormalities of gait and mobility; R53.81 Other malaise; Z95.5 Presence of coronary angioplasty implant and graft; Z79.02 Long term (current) use of antithrombotics/antiplatelets; Z79.890 Hormone replacement therapy; Z79.899 Other long term (current) drug therapy; Z79.51 Long term (current) use of inhaled steroids; I25.2 Old myocardial infarction; Z85.828 Personal history of other malignant neoplasm of skin; Z99.3 Dependence on wheelchair
CPT/HCPCS: 33208; 33211; 36415; 71045; 80048; 80053; 81003; 83735; 84443; 84484; 85025; 85610; 85730; 86850; 86900; 86901; 93005; 93306; 94640; 96365; 96375; 99285